=== PATIENT | male | born 1975 | race Caucasian/White ===

== ENCOUNTER 2017-11-30 07:22 | Emergency (ER) | payer BC, OTHER ==
[2017-11-30] MEDS ORDERED: SODIUM CHLORIDE 0.9% 1,000 ML IV STA (07:35)
[2017-11-30] MEDS ORDERED: ONDANSETRON 4 MG/2 ML VIAL IVP STA (07:35)
[2017-11-30] MEDS ORDERED: MECLIZINE 12.5 MG TAB PO STA (07:35)
--- NOTE | 2017-11-30 07:41 | ED ---
General Adult HPI - General Chief complaint: Dizziness Stated complaint: Dizziness Time Seen by Provider: 11/30/17 07:28 Source: patient, RN notes reviewed Mode of arrival: ambulatory Limitations: no limitations - History of Present Illness Initial comments: Patient's a 42-year-old male significant past medical history for hypertension, presenting to the emergency room today with a multiple complaints. Patient mitts a history of a chronic back problem. He states that when his back seems to bother me gets episodes of dizziness. He states he has tried to stretch out his back which helped some numbness dizziness. He states he felt dizzy or this morning. He describes as the room spinning. Patient admits that he's felt headaches. He states he's had "fogginess" in his head. He states he's had memory problems. Patient also admits to episodes of nausea vomiting and diarrhea. Patient states that episodes of dizziness come and go. He states memory problems recent. He states he's worried because there is family history of cancer. Patient mitts dizziness is worse with certain movements on from laying to sitting position. Patient denies any other complaints currently. Patient denies any recent fever, chills, shortness of breath, chest pain, abdominal pain, numbness or tingling, dysuria or hematuria, constipation, visual changes, or any other complaints. - Related Data Home Medications Medication Instructions Recorded Confirmed Ibuprofen [Motrin Ib] 600 mg PO Q6H PRN 11/30/17 11/30/17 amLODIPine [Norvasc] 5 mg PO DAILY 11/30/17 11/30/17 Previous Rx's Medication Instructions Recorded Meclizine [Antivert] 25 mg PO DAILY 10 Days tab 11/30/17 Allergies Allergy/AdvReac Type Severity Reaction Status Date / Time No Known Allergies Allergy Verified 11/30/17 08:24 Review of Systems ROS Statement: Those systems with pertinent positive or pertinent negative responses have been documented in the HPI. ROS Other: All systems not noted in ROS Statement are negative. Past Medical History Past Medical History: Hypertension Additional Past Medical History / Comment(s): chronic back pain History of Any Multi-Drug Resistant Organisms: None Reported Past Surgical History: Adenoidectomy Past Psychological History: No Psychological Hx Reported Smoking Status: Current every day smoker Past Alcohol Use History: None Reported Past Drug Use History: None Reported General Exam - General Exam Comments Initial Comments: General: The patient is awake and alert, in no distress, and does not appear acutely ill. Eye: Pupils are equal, round and reactive to light, extra-ocular movements are intact. No nystagmus. There is normal conjunctiva bilaterally. No signs of icterus. Ears, nose, mouth and throat: There are moist mucous membranes and no oral lesions. Neck: The neck is supple, there is no tenderness or JVD. Cardiovascular: There is a regular rate and rhythm. No murmur, rub or gallop is appreciated. Respiratory: Lungs are clear to auscultation, respirations are non-labored, breath sounds are equal. No wheezes, stridor, rales, or rhonchi. Gastrointestinal: Soft, non-distended, non-tender abdomen without masses or organomegaly noted. There is no rebound or guarding present. No CVA tenderness. Musculoskeletal: Normal ROM, no tenderness. Strength 5/5. Sensation intact. Pulses equal bilaterally 2+. Neurological: A&O x 3. CN II-XII intact, There are no obvious motor or sensory deficits. Coordination appears grossly intact. Speech is normal. Skin: Skin is warm and dry and no rashes or lesions are noted. Psychiatric: Cooperative, appropriate mood & affect, normal judgment. Limitations: no limitations Course Vital Signs 11/30/17 11/30/17 07:24 08:26 Temperature 98.2 F Pulse Rate 93 82 Respiratory 20 18 Rate Blood Pressure 154/97 141/79 O2 Sat by Pulse 100 97 Oximetry EKG Findings - EKG Comments: EKG Findings:: EKG performed at 0750: MO interval 152. QRS 94. QT/QTc 366/ 435. No acute ST changes. Medical Decision Making - Medical Decision Making Patient's CT of the head is negative for any acute abnormality. Chest x-rays negative. Patient's labs been reviewed are unremarkable. EKG shows normal sinus rhythm. Patient is feeling better after meclizine given here in the emergency room. He admits to some memory loss issues. He is advised follow-up family doctor for this. His dizziness is consistent with a benign positional vertigo. Patient continued on meclizine at this time. He is advised follow-up over the next 2 days return here to the emergency room if any symptoms increase or worsen. - Lab Data Result diagrams: 11/30/17 07:45 11/30/17 07:45 Lab Results 11/30/17 11/30/17 11/30/17 Range/Units 07:45 07:45 07:45 WBC 8.6 (3.8-10.6) k/uL RBC 5.26 (4.30-5.90) m/uL Hgb 15.8 (13.0-17.5) gm/dL Hct 48.2 (39.0-53.0) % MCV 91.7 (80.0-100.0) fL MCH 29.9 (25.0-35.0) pg MCHC 32.7 (31.0-37.0) g/dL RDW 12.6 (11.5-15.5) % Plt Count 300 (150-450) k/uL Neutrophils % 73 % Lymphocytes % 18 % Monocytes % 6 % Eosinophils % 2 % Basophils % 0 % Neutrophils # 6.3 (1.3-7.7) k/uL Lymphocytes # 1.5 (1.0-4.8) k/uL Monocytes # 0.5 (0-1.0) k/uL Eosinophils # 0.2 (0-0.7) k/uL Basophils # 0.0 (0-0.2) k/uL Sodium 142 (137-145) mmol/L Potassium 3.9 (3.5-5.1) mmol/L Chloride 109 H (98-107) mmol/L Carbon Dioxide 26 (22-30) mmol/L Anion Gap 7 mmol/L BUN 15 (9-20) mg/dL Creatinine 0.84 (0.66-1.25) mg/dL Est GFR (CKD-EPI)AfAm >90 (>60 ml/min/1.73 sqM) Est GFR (CKD-EPI)NonAf >90 (>60 ml/min/1.73 sqM) Glucose 114 H (74-99) mg/dL Calcium 9.6 (8.4-10.2) mg/dL Total Bilirubin 0.4 (0.2-1.3) mg/dL AST 13 L (17-59) U/L ALT 27 (21-72) U/L Alkaline Phosphatase 70 (38-126) U/L Total Creatine Kinase 79 (55-170) U/L CK-MB (CK-2) 0.7 (0.0-2.4) ng/mL CK-MB (CK-2) Rel Index 0.9 Troponin I <0.012 (0.000-0.034) ng/mL Total Protein 7.1 (6.3-8.2) g/dL Albumin 4.1 (3.5-5.0) g/dL Urine Color Urine Appearance (Clear) Urine pH (5.0-8.0) Ur Specific [place] (1.001-1.035) Urine Protein (Negative) Urine Glucose (UA) (Negative) Urine Ketones (Negative) Urine Blood (Negative) Urine Nitrite (Negative) Urine Bilirubin (Negative) Urine Urobilinogen (<2.0) mg/dL Ur Leukocyte Esterase (Negative) 11/30/17 Range/Units 08:30 WBC (3.8-10.6) k/uL RBC (4.30-5.90) m/uL Hgb (13.0-17.5) gm/dL Hct (39.0-53.0) % MCV (80.0-100.0) fL MCH (25.0-35.0) pg MCHC (31.0-37.0) g/dL RDW (11.5-15.5) % Plt Count (150-450) k/uL Neutrophils % % Lymphocytes % % Monocytes % % Eosinophils % % Basophils % % Neutrophils # (1.3-7.7) k/uL Lymphocytes # (1.0-4.8) k/uL Monocytes # (0-1.0) k/uL Eosinophils # (0-0.7) k/uL Basophils # (0-0.2) k/uL Sodium (137-145) mmol/L Potassium (3.5-5.1) mmol/L Chloride (98-107) mmol/L Carbon Dioxide (22-30) mmol/L Anion Gap mmol/L BUN (9-20) mg/dL Creatinine (0.66-1.25) mg/dL Est GFR (CKD-EPI)AfAm (>60 ml/min/1.73 sqM) Est GFR (CKD-EPI)NonAf (>60 ml/min/1.73 sqM) Glucose (74-99) mg/dL Calcium (8.4-10.2) mg/dL Total Bilirubin (0.2-1.3) mg/dL AST (17-59) U/L ALT (21-72) U/L Alkaline Phosphatase (38-126) U/L Total Creatine Kinase (55-170) U/L CK-MB (CK-2) (0.0-2.4) ng/mL CK-MB (CK-2) Rel Index Troponin I (0.000-0.034) ng/mL Total Protein (6.3-8.2) g/dL Albumin (3.5-5.0) g/dL Urine Color Yellow Urine Appearance Clear (Clear) Urine pH 5.5 (5.0-8.0) Ur Specific [place] 1.018 (1.001-1.035) Urine Protein Trace H (Negative) Urine Glucose (UA) Negative (Negative) Urine Ketones Negative (Negative) Urine Blood Negative (Negative) Urine Nitrite Negative (Negative) Urine Bilirubin Negative (Negative) Urine Urobilinogen <2.0 (<2.0) mg/dL Ur Leukocyte Esterase Negative (Negative) Disposition Clinical Impression: Chronic back pain, Vertigo Disposition: HOME SELF-CARE Condition: Good Instructions: Vertigo (ED) Additional Instructions: Please use medication as discussed. Please follow-up with family doctor in the next 2 days. Please return to emergency room if the symptoms increase or worsen or for any other concerns. Prescriptions: Meclizine [Antivert] 25 mg PO DAILY 10 Days tab Is patient prescribed a controlled substance at d/c from ED?: No Referrals: None,Stated [Primary Care Provider] - 1-2 days Time of Disposition: 09:15
[2017-11-30 08:07] LABS: Basophils % (A) 0 %; Eosinophils # (A) 0.2 k/uL (0-0.7); Eosinophils % (A) 2 %; HCT 48.2 % (39.0-53.0); HGB 15.8 gm/dL (13.0-17.5); Lymphocytes # (A) 1.5 k/uL (1.0-4.8); Lymphocytes % (A) 18 %; MCH 29.9 pg (25.0-35.0); MCHC 32.7 g/dL (31.0-37.0); MCV 91.7 fL (80.0-100.0); Mean Platelet Volume 7.9; Monocytes # (A) 0.5 k/uL (0-1.0); Monocytes % (A) 6 %; Neutrophils # (A) 6.3 k/uL (1.3-7.7); Neutrophils % (A) 73 %; Platelet Count 300 k/uL (150-450); RBC 5.26 m/uL (4.30-5.90); RDW 12.6 % (11.5-15.5); WBC 8.6 k/uL (3.8-10.6)
[2017-11-30 08:14] LABS: ALT 27 U/L (21-72); AST 13 U/L (17-59); Albumin 4.1 g/dL (3.5-5.0); Alkaline Phosphatase 70 U/L (38-126); Anion Gap 7 mmol/L; Blood Urea Nitrogen 15 mg/dL (9-20); Calcium 9.6 mg/dL (8.4-10.2); Carbon Dioxide 26 mmol/L (22-30); Chloride 109 mmol/L (98-107); Glucose 114 mg/dL (74-99); Potassium 3.9 mmol/L (3.5-5.1); Sodium 142 mmol/L (137-145); Total Bilirubin 0.4 mg/dL (0.2-1.3); Total Protein 7.1 g/dL (6.3-8.2)
--- NOTE | 2017-11-30 08:21 | CT ---
EXAMINATION TYPE: CT brain wo con DATE OF EXAM: 11/30/2017 COMPARISON: None INDICATION: patient feeling dizzy DLP: 1024.5 mGycm, Automated exposure control for dose reduction was used. CONTRAST: None CT of the brain is performed utilizing 3 mm thick sections through the posterior fossa and 3 mm thick sections through the remaining calvarium. Study is performed within 24 hours of arrival to the hosp [facility]. No abnormal hyperdensity is present to suggest an acute intracranial hemorrhage. No mass lesion is evident. No acute infarcts are evident. Ventricles and sulci are appropriate for the patient age. Paranasal sinuses and mastoid air cells within the [id number] are clear. IMPRESSIONS: 1. Normal CT Brain
[2017-11-30 08:24] LABS: Creatine Kinase 79 U/L (55-170)
--- NOTE | 2017-11-30 08:24 | XR ---
EXAMINATION TYPE: XR chest 2V DATE OF EXAM: 11/30/2017 COMPARISON: 03/10/2012 INDICATION: Cough lightheaded TECHNIQUE: Frontal and lateral views of the chest are obtained. FINDINGS: The heart size is normal. The pulmonary vasculature is normal. The lungs are clear. IMPRESSION: 1. No acute pulmonary process.
[2017-11-30 08:27] VITALS: RESP 18
[2017-11-30 08:36] LABS: Creatine Kinase MB 0.7 ng/mL (0.0-2.4); Troponin I <0.012 ng/mL (0.000-0.034)
[2017-11-30 08:38] LABS: Appearance,Urine Clear (Clear); Bilirubin,Urine Negative (Negative); Blood,Urine Negative (Negative); Color,Urine Yellow; Glucose,Urine (UA) Negative (Negative); Ketones,Urine Negative (Negative); Leukocyte Esterase,Urine Negative (Negative); Nitrite,Urine Negative (Negative); PH, Urine 5.5 (5.0-8.0); Protein,Urine Trace (Negative); Specific Gravity,Urine 1.018 (1.001-1.035); Urobilinogen,Urine <2.0 mg/dL (<2.0)
[2017-11-30 09:25] VITALS: BP 139/82; PULSE 78; TEMP 97.4
== END 2017-11-30 09:24 | disposition home or self-care (01) ==
LOC: EC 07:22
DX: R42 Dizziness and giddiness (principal); M54.9 Dorsalgia, unspecified; G89.29 Other chronic pain; I10 Essential (primary) hypertension; F17.200 Nicotine dependence, unspecified, uncomplicated; Z79.899 Other long term (current) drug therapy
CPT/HCPCS: 36415; 93005; 80053; 82550; 82553; 84484; 85025; 81003; 71046; 70450; 99284; J2405

== ENCOUNTER 2018-11-02 19:00 | Emergency (ER) | payer OTHER ==
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
[2018-11-02] MEDS ORDERED: ACET/COD 300 MG/30 MG STARTER PACK 6 TAB BTL PO STA (21:23)
[2018-11-02] MEDS ORDERED: CYCLOBENZAPRINE 10MG STARTER 3 TAB BTL PO STA (21:23)
[2018-11-02 21:55] VITALS: BP 142/74; PULSE 67; RESP 18; TEMP 97.9
== END 2018-11-02 21:55 | disposition home or self-care (01) ==
LOC: EC 19:00
DX: S16.1XXA Strain of muscle, fascia and tendon at neck level, initial encounter (principal); S80.01XA Contusion of right knee, initial encounter; S40.011A Contusion of right shoulder, initial encounter; S80.211A Abrasion, right knee, initial encounter; S50.811A Abrasion of right forearm, initial encounter; S80.812A Abrasion, left lower leg, initial encounter; F17.200 Nicotine dependence, unspecified, uncomplicated; I10 Essential (primary) hypertension; Z79.899 Other long term (current) drug therapy; V29.9XXA Motorcycle rider (driver) (passenger) injured in unspecified traffic accident, initial encounter; Y92.410 Unspecified street and highway as the place of occurrence of the external cause
CPT/HCPCS: 71046; 72072; 72125; 99284

== ENCOUNTER 2019-01-28 08:24 | Inpatient (IN) | payer OTHER ==
[2019-01-28] MEDS ORDERED: KETOROLAC 30 MG/ML 1 ML VIAL IVP STA (08:43)
[2019-01-28] MEDS ORDERED: SODIUM CHLORIDE 0.9% 1,000 ML IV STA (08:43)
[2019-01-28 09:27] LABS: Appearance,Urine Clear (Clear); Basophils # (A) 0.1 k/uL (0-0.2); Basophils % (A) 1 %; Bilirubin,Urine Negative (Negative); Blood,Urine Negative (Negative); Color,Urine Yellow; Eosinophils # (A) 0.1 k/uL (0-0.7); Eosinophils % (A) 1 %; Glucose,Urine (UA) Negative (Negative); HCT 44.1 % (39.0-53.0); HGB 14.6 gm/dL (13.0-17.5); Ketones,Urine Trace (Negative); Leukocyte Esterase,Urine Negative (Negative); Lymphocytes # (A) 1.2 k/uL (1.0-4.8); Lymphocytes % (A) 8 %; MCH 29.9 pg (25.0-35.0); MCV 90.4 fL (80.0-100.0); Mean Platelet Volume 7.1; Monocytes # (A) 0.7 k/uL (0-1.0); Monocytes % (A) 5 %; Neutrophils # (A) 12.4 k/uL (1.3-7.7); Neutrophils % (A) 84 %; Nitrite,Urine Negative (Negative); Platelet Count 287 k/uL (150-450); Protein,Urine Negative (Negative); RBC 4.87 m/uL (4.30-5.90); RDW 12.7 % (11.5-15.5); Specific Gravity,Urine 1.014 (1.001-1.035); Urobilinogen,Urine <2.0 mg/dL (<2.0); WBC 14.7 k/uL (3.8-10.6)
[2019-01-28 09:36] LABS: ALT 30 U/L (21-72); AST 16 U/L (17-59); African American GFR (CKD) >90 (>60 ml/min/1.73 sqM); Alkaline Phosphatase 82 U/L (38-126); Amylase <30 U/L (30-110); Anion Gap 9 mmol/L; Blood Urea Nitrogen 12 mg/dL (9-20); Carbon Dioxide 23 mmol/L (22-30); Chloride 106 mmol/L (98-107); Glucose 98 mg/dL (74-99); Potassium 4.3 mmol/L (3.5-5.1); Sodium 138 mmol/L (137-145); Total Bilirubin 1.2 mg/dL (0.2-1.3); Total Protein 7.1 g/dL (6.3-8.2)
--- NOTE | 2019-01-28 09:41 | CT ---
EXAMINATION TYPE: CT abdomen pelvis w con DATE OF EXAM: 01/28/2019 REFERENCE: NONE HISTORY: abdominal pain rlq HISTORY: RLQ pain CT DLP: 1302.7 mGy Automated exposure control for dose reduction was used. TECHNIQUE: Helical acquisition through the abdomen and pelvis was obtained following the oral ingesti on of without Oral Contrast and following intravenous administration of 100 mL of Isovue 300. The halima a was reformatted in axial, coronal and sagittal projections. FINDINGS: Visualized portions of the lungs are clear. There is no pleural or pericardial fluid. The heart is not enlarged. Within the abdomen, there are several low attenuating lesions throughout all of the liver. These are likely cysts but some are too small to characterize. There are gallstones within the gallbladder. Spl een is unremarkable. Both adrenal glands are normal. The pancreas is unremarkable. There is an 8 mm cyst in the upper pole of the left kidney. There is a second 1 mm simple appearing c yst in the mid polar region of the left kidney. The kidneys are otherwise unremarkable There is no significant retroperitoneal, iliac or inguinal adenopathy. The bladder wall is somewhat thickened but the bladder is not distended. There is no significant diverticular change and there is no radiographic evidence of diverticulitis. There is mucosal thickening involving the cecum and ascending colon. The appendix is normal. Small bowel loops are normal in caliber. There is no free fluid and no free air. There is degenerative disc disease at L5-S1. There is mild hypertrophic spondylosis in the lower dors al spine. IMPRESSION: 1. MUCOSAL THICKENING INVOLVING THE CECUM AND ASCENDING COLON. TYPHLITIS IS NOT EXCLUDED. 2. NORMAL APPENDIX. 3. SIMPLE APPEARING CYSTS, LEFT KIDNEY. 4. CHOLELITHIASIS.
[2019-01-28] MEDS ORDERED: PIPERACILLIN-TAZOBACTAM 3.375 GM in SODIUM CHLORIDE 0.9% 100 ML IVPB STA (09:58)
--- NOTE | 2019-01-28 09:59 | ED ---
Abdominal Pain HPI - General Chief Complaint: Abdominal Pain Stated Complaint: Abd/Back Pain Time Seen by Provider: 01/28/19 08:34 Source: patient, RN notes reviewed Mode of arrival: ambulatory Limitations: no limitations - History of Present Illness Initial Comments: 43-year-old male presents emergency Department with chief complaint of right- sided abdominal pain. Patient had progressive symptoms last 3-4 days. Patient states that last night was unbearable. He has had some loose stools. Patient reports subjective fevers and chills. Denies any chest pain or shortness breath. He does admit that he's had prior kidney stones does not feel consi stent with kidney stones. Denies any dysuria, hematuria. Increasing dark urine. Patient states nothing makes the pain feel better or worse at this time. He does feel bloated, gassy. - Related Data Home Medications Medication Instructions Recorded Confirmed Ibuprofen [Motrin Ib] 600 mg PO Q6H PRN 11/30/17 11/30/17 amLODIPine [Norvasc] 5 mg PO DAILY 11/30/17 11/30/17 Previous Rx's Medication Instructions Recorded Meclizine [Antivert] 25 mg PO DAILY 10 Days tab 11/30/17 Cyclobenzaprine [Flexeril] 10 mg PO TID PRN 7 Days #21 tab 11/02/18 Ibuprofen 800 mg PO Q8H PRN 7 Days #21 tablet 11/02/18 Allergies Allergy/AdvReac Type Severity Reaction Status Date / Time No Known Allergies Allergy Verified 01/28/19 08:30 Review of Systems ROS Statement: Those systems with pertinent positive or pertinent negative responses have been documented in the HPI. ROS Other: All systems not noted in ROS Statement are negative. Past Medical History Past Medical History: Hypertension Additional Past Medical History / Comment(s): chronic back pain History of Any Multi-Drug Resistant Organisms: None Reported Past Surgical History: Adenoidectomy Past Psychological History: No Psychological Hx Reported Smoking Status: Current every day smoker Past Alcohol Use History: None Reported Past Drug Use History: None Reported General Exam Limitations: no limitations General appearance: alert, in no apparent distress Head exam: Present: atraumatic, normocephalic, normal inspection Neck exam: Present: normal inspection, full ROM. Absent: tenderness, meningismus, lymphadenopathy Respiratory exam: Present: normal lung sounds bilaterally. Absent: respiratory distress, wheezes, rales, rhonchi, stridor Cardiovascular Exam: Present: regular rate, normal rhythm, normal heart sounds. Absent: systolic murmur, diastolic murmur, rubs, gallop, clicks GI/Abdominal exam: Present: soft, tenderness (Moderate to severe right-sided abdominal tenderness), normal bowel sounds. Absent: distended, guarding, rebound, rigid Back exam: Absent: CVA tenderness (R), CVA tenderness (L) Neurological exam: Present: alert, oriented X3 Skin exam: Present: warm, dry, intact, normal color. Absent: rash Course Vital Signs 01/28/19 08:26 Temperature 97.7 F Pulse Rate 102 H Respiratory 18 Rate Blood Pressure 154/85 O2 Sat by Pulse 97 Oximetry Medical Decision Making - Medical Decision Making CT shows evidence of cecum region. There is significant swelling, mild leukocytosis any subjective fevers. Patient we treated for infectious colitis p atient with consult to surgery patient admitted to Dr. Barfield. On-call medicine - Lab Data Result diagrams: 01/28/19 09:05 01/28/19 09:05 Lab Results 01/28/19 01/28/19 01/28/19 Range/Units 09:05 09:05 09:05 WBC 14.7 H (3.8-10.6) k/uL RBC 4.87 (4.30-5.90) m/uL Hgb 14.6 (13.0-17.5) gm/dL Hct 44.1 (39.0-53.0) % MCV 90.4 (80.0-100.0) fL MCH 29.9 (25.0-35.0) pg MCHC 33.0 (31.0-37.0) g/dL RDW 12.7 (11.5-15.5) % Plt Count 287 (150-450) k/uL Neutrophils % 84 % Lymphocytes % 8 % Monocytes % 5 % Eosinophils % 1 % Basophils % 1 % Neutrophils # 12.4 H (1.3-7.7) k/uL Lymphocytes # 1.2 (1.0-4.8) k/uL Monocytes # 0.7 (0-1.0) k/uL Eosinophils # 0.1 (0-0.7) k/uL Basophils # 0.1 (0-0.2) k/uL Sodium 138 (137-145) mmol/L Potassium 4.3 (3.5-5.1) mmol/L Chloride 106 (98-107) mmol/L Carbon Dioxide 23 (22-30) mmol/L Anion Gap 9 mmol/L BUN 12 (9-20) mg/dL Creatinine 0.79 (0.66-1.25) mg/dL Est GFR (CKD-EPI)AfAm >90 (>60 ml/min/1.73 sqM) Est GFR (CKD-EPI)NonAf >90 (>60 ml/min/1.73 sqM) Glucose 98 (74-99) mg/dL Plasma Lactic Acid Sheldon 0.9 (0.7-2.0) mmol/L Calcium 9.0 (8.4-10.2) mg/dL Total Bilirubin 1.2 (0.2-1.3) mg/dL AST 16 L (17-59) U/L ALT 30 (21-72) U/L Alkaline Phosphatase 82 (38-126) U/L Total Protein 7.1 (6.3-8.2) g/dL Albumin 4.0 (3.5-5.0) g/dL Amylase <30 L (30-110) U/L Lipase 27 (23-300) U/L Urine Color Urine Appearance (Clear) Urine pH (5.0-8.0) Ur Specific Sumner (1.001-1.035) Urine Protein (Negative) Urine Glucose (UA) (Negative) Urine Ketones (Negative) Urine Blood (Negative) Urine Nitrite (Negative) Urine Bilirubin (Negative) Urine Urobilinogen (<2.0) mg/dL Ur Leukocyte Esterase (Negative) 01/28/19 Range/Units 09:05 WBC (3.8-10.6) k/uL RBC (4.30-5.90) m/uL Hgb (13.0-17.5) gm/dL Hct (39.0-53.0) % MCV (80.0-100.0) fL MCH (25.0-35.0) pg MCHC (31.0-37.0) g/dL RDW (11.5-15.5) % Plt Count (150-450) k/uL Neutrophils % % Lymphocytes % % Monocytes % % Eosinophils % % Basophils % % Neutrophils # (1.3-7.7) k/uL Lymphocytes # (1.0-4.8) k/uL Monocytes # (0-1.0) k/uL Eosinophils # (0-0.7) k/uL Basophils # (0-0.2) k/uL Sodium (137-145) mmol/L Potassium (3.5-5.1) mmol/L Chloride (98-107) mmol/L Carbon Dioxide (22-30) mmol/L Anion Gap mmol/L BUN (9-20) mg/dL Creatinine (0.66-1.25) mg/dL Est GFR (CKD-EPI)AfAm (>60 ml/min/1.73 sqM) Est GFR (CKD-EPI)NonAf (>60 ml/min/1.73 sqM) Glucose (74-99) mg/dL Plasma Lactic Acid Sheldon (0.7-2.0) mmol/L Calcium (8.4-10.2) mg/dL Total Bilirubin (0.2-1.3) mg/dL AST (17-59) U/L ALT (21-72) U/L Alkaline Phosphatase (38-126) U/L Total Protein (6.3-8.2) g/dL Albumin (3.5-5.0) g/dL Amylase (30-110) U/L Lipase (23-300) U/L Urine Color Yellow Urine Appearance Clear (Clear) Urine pH 6.0 (5.0-8.0) Ur Specific Sumner 1.014 (1.001-1.035) Urine Protein Negative (Negative) Urine Glucose (UA) Negative (Negative) Urine Ketones Trace H (Negative) Urine Blood Negative (Negative) Urine Nitrite Negative (Negative) Urine Bilirubin Negative (Negative) Urine Urobilinogen <2.0 (<2.0) mg/dL Ur Leukocyte Esterase Negative (Negative) Disposition Clinical Impression: Colitis, Abdominal pain Disposition: ADMITTED IP TO THIS HOSP Condition: Fair Referrals: None,Stated [Primary Care Provider] - 1-2 days
[2019-01-28] MEDS ORDERED: HYDROmorphone 1 MG/ML 1 ML SYRINGE IVP PRN (10:00)
[2019-01-28] MEDS ORDERED: ONDANSETRON 4 MG/2 ML VIAL IVP PRN (10:00)
[2019-01-28] MEDS ORDERED: NALOXONE 0.4 MG/ML 1 ML VIAL IV PRN (10:00)
[2019-01-28] MEDS ORDERED: HYDROcodone/APAP 5-325MG 1 EACH TAB PO PRN (10:00)
[2019-01-28] MEDS: SODIUM CHLORIDE 0.9% 1,000 ML IV SCH ×2 (10:26→23:01)
[2019-01-28 12:06] VITALS: BMI 32.2
[2019-01-28] MEDS: HYDROmorphone 0.5 MG/0.5 ML SYRINGE IVP PRN ×2 (14:38→18:05)
[2019-01-28] MEDS: metroNIDAZOLE-NS PMX 500 MG in SALINE 1 100ML.BAG IVPB SCH ×2 (16:32→23:00)
--- NOTE | 2019-01-28 19:46 | HP ---
HISTORY AND PHYSICAL CHIEF COMPLAINT: Four or five day history of right lower quadrant pain. HISTORY OF PRESENT ILLNESS: This is the first known admission for this 43-year-old white male. Last Wednesday he started to notice some discomfort in the right lower quadrant. It grew steadily worse over the week. He had had some kidney stone issues in the past and thought that might be what it was. However, the pain became more severe and his abdomen became slightly distended and "hard." He also had chills, but no vomiting or diarrhea. He has not noticed any change in bowel habits of late. He came to emergency room where a CT suggested an abnormality in the wall of the cecum. He also has cholelithiasis which he did not know. Laboratory studies revealed a white count of 14,700. The remainder of the labs were unremarkable including liver function studies. His urine was negative, there was no blood. REVIEW OF SYSTEMS: He has had no headaches, neurologic problems, difficulty with vision or hearing, chest pain, shortness of breath, cough, hemoptysis, heart disease, murmurs, rheumatic fever, chest pain, orthopnea, PND, etc. He does have hypertension. He has had no ulcer disease, food intolerance, hematemesis, melena, hematochezia, colitis, diverticulosis, diverticulitis, hemorrhoids, jaundice, hepatitis, cirrhosis, hematuria, frequency, urgency, renal failure, diabetes, etc. Past medical history, family history and personal and social histories are all otherwise unremarkable and noncontributory. ALLERGIES: He is not allergic to any medication. He is on ibuprofen at home and nothing else. PHYSICAL EXAM: Temp is 97.7, pulse is 102, respirations 18, blood pressure is 154/85. In general, he appears to be well developed, well nourished, no acute distress. Skin color is normal. Skin is warm, dry. He had multiple tattoos. Head, ears, eyes, nose, mouth, and throat were normal. Neck veins not distended. Chest is clear to auscultation. Cardiac exam is normal. The abdomen is slightly protuberant, soft, and he was quite tender in the right lower quadrant as well as in the right upper. Extremities are normal. Neurologically he is intact. He was admitted to the hospital with the diagnoses of: 1. Inflammation in the cecum, etiology unknown. 2. Cholelithiasis. 3. History of renal calculi. 4. Family history of Crohn's disease. PLAN: 1. Bed rest. 2. IV fluids. 3. Clear liquids. 4. Consult with General Surgery and Gastroenterology. 5. Antiemetics. NIKO / SHERLYN: [id number] /
[2019-01-28] MEDS: NICOTINE 14MG/24HR PATCH TRANSDERM SCH (19:54)
[2019-01-29 07:12] LABS: Basophils % (A) 0 %; Eosinophils # (A) 0.1 k/uL (0-0.7); Eosinophils % (A) 1 %; HCT 39.8 % (39.0-53.0); HGB 13.1 gm/dL (13.0-17.5); Lymphocytes # (A) 1.3 k/uL (1.0-4.8); Lymphocytes % (A) 14 %; MCH 30.2 pg (25.0-35.0); MCHC 32.9 g/dL (31.0-37.0); MCV 91.9 fL (80.0-100.0); Mean Platelet Volume 6.7; Monocytes # (A) 0.5 k/uL (0-1.0); Monocytes % (A) 5 %; Neutrophils % (A) 77 %; Platelet Count 277 k/uL (150-450); RBC 4.32 m/uL (4.30-5.90); RDW 12.6 % (11.5-15.5); WBC 9.1 k/uL (3.8-10.6)
[2019-01-29 07:30] LABS: ALT 26 U/L (21-72); AST 15 U/L (17-59); African American GFR (CKD) >90 (>60 ml/min/1.73 sqM); Albumin 3.3 g/dL (3.5-5.0); Alkaline Phosphatase 72 U/L (38-126); Anion Gap 6 mmol/L; Blood Urea Nitrogen 11 mg/dL (9-20); Calcium 8.4 mg/dL (8.4-10.2); Carbon Dioxide 26 mmol/L (22-30); Chloride 105 mmol/L (98-107); Glucose 84 mg/dL (74-99); Potassium 4.2 mmol/L (3.5-5.1); Sodium 137 mmol/L (137-145); Total Bilirubin 1.2 mg/dL (0.2-1.3); Total Protein 6.2 g/dL (6.3-8.2)
[2019-01-29] MEDS: PANTOPRAZOLE 40 MG/10 ML VIAL IV SCH (08:07)
[2019-01-29] MEDS: NICOTINE 14MG/24HR PATCH TRANSDERM SCH (08:07)
[2019-01-29] MEDS: metroNIDAZOLE-NS PMX 500 MG in SALINE 1 100ML.BAG IVPB SCH ×3 (08:08→23:00)
--- NOTE | 2019-01-29 09:51 | P.GSCN ---
History of Present Illness Consult date: 01/29/19 Reason for Consult: Abdominal pain History of present illness: 43-year-old male started having abdominal pain yesterday. He states he was havi ng some increased lower back pain the day before and sometimes with his chronic back issues that is the first sign of abdominal discomfort. Denies fevers. Appetite diminished. Pain was fairly severe in the right lower quadrant. Much better this morning. He is ambulating. No history of similar events. No recent travel. No sick contacts. Patient denies diarrhea. In fact complaints more of constipation lately. No rectal bleeding or melena. Family history of Crohn's disease and a distant cousin. He is hungry at this time. CAT scan reviewed. CAT scan shows inflammatory changes of the cecum and proximal ascending colon consistent with colitis/typhlitis. No volvulus seen. Patient d oes state he had a tooth that started hurting within the last few days after part of the tooth broke away. Review of Systems The patient denies any acute changes in vision or hearing, no dysphagia or odynophagia, no chest pain or shortness of breath, no dysuria or hematuria, no headache, no runny nose, no rectal bleeding or melena, no unexplained weight loss Past Medical History Past Medical History: Hypertension Additional Past Medical History / Comment(s): chronic back pain History of Any Multi-Drug Resistant Organisms: None Reported Past Surgical History: Adenoidectomy Past Psychological History: No Psychological Hx Reported Smoking Status: Current every day smoker Past Alcohol Use History: None Reported Past Drug Use History: None Reported - Past Family History Father Family Medical History: Diabetes Mellitus Additional Family Medical History / Comment(s): First cousin has been diagnosed with Chrons, Great Uncle had colon cancer. Mother Family Medical History: Thyroid Disorder Medications and Allergies Home Medications Medication Instructions Recorded Confirmed Type Ibuprofen [Motrin Ib] 600 mg PO Q6H PRN 11/30/17 01/28/19 History Allergies Allergy/AdvReac Type Severity Reaction Status Date / Time No Known Allergies Allergy Verified 01/28/19 10:46 Surgical - Exam Vital Signs Temp Pulse Resp BP Pulse Ox 97.7 F 102 H 18 154/85 97 01/28/19 08:26 01/28/19 08:26 01/28/19 08:26 01/28/19 08:26 01/28/19 08:26 Physical exam: General: Well-developed, well-nourished HEENT: Normocephalic, sclerae nonicteric Abdomen: Mild right lower quadrant tenderness, nondistended Extremities: No edema Neuro: Alert and oriented Results - Labs 01/29/19 06:30 01/29/19 06:30 Abnormal Lab Results - Last 24 Hours (Table) 01/29/19 Range/Units 06:30 AST 15 L (17-59) U/L Total Protein 6.2 L (6.3-8.2) g/dL Albumin 3.3 L (3.5-5.0) g/dL Diabetes panel 01/29/19 Range/Units 06:30 Sodium 137 (137-145) mmol/L Potassium 4.2 (3.5-5.1) mmol/L Chloride 105 (98-107) mmol/L Carbon Dioxide 26 (22-30) mmol/L BUN 11 (9-20) mg/dL Creatinine 0.87 (0.66-1.25) mg/dL Glucose 84 (74-99) mg/dL Calcium 8.4 (8.4-10.2) mg/dL AST 15 L (17-59) U/L ALT 26 (21-72) U/L Alkaline Phosphatase 72 (38-126) U/L Total Protein 6.2 L (6.3-8.2) g/dL Albumin 3.3 L (3.5-5.0) g/dL Calcium panel 01/29/19 Range/Units 06:30 Calcium 8.4 (8.4-10.2) mg/dL Albumin 3.3 L (3.5-5.0) g/dL Pituitary panel 01/29/19 Range/Units 06:30 Sodium 137 (137-145) mmol/L Potassium 4.2 (3.5-5.1) mmol/L Chloride 105 (98-107) mmol/L Carbon Dioxide 26 (22-30) mmol/L BUN 11 (9-20) mg/dL Creatinine 0.87 (0.66-1.25) mg/dL Glucose 84 (74-99) mg/dL Calcium 8.4 (8.4-10.2) mg/dL Adrenal panel 01/29/19 Range/Units 06:30 Sodium 137 (137-145) mmol/L Potassium 4.2 (3.5-5.1) mmol/L Chloride 105 (98-107) mmol/L Carbon Dioxide 26 (22-30) mmol/L BUN 11 (9-20) mg/dL Creatinine 0.87 (0.66-1.25) mg/dL Glucose 84 (74-99) mg/dL Calcium 8.4 (8.4-10.2) mg/dL Total Bilirubin 1.2 (0.2-1.3) mg/dL AST 15 L (17-59) U/L ALT 26 (21-72) U/L Alkaline Phosphatase 72 (38-126) U/L Total Protein 6.2 L (6.3-8.2) g/dL Albumin 3.3 L (3.5-5.0) g/dL Assessment and Plan (1) Colitis Narrative/Plan: 43-year-old male with unusual presentation of right-sided colitis. Await stool studies. Continue antibiotics. Advance diet. Likely discharge tomorrow on oral antibiotics. Current Visit: Yes Status: Acute Code(s): K52.9 - NONINFECTIVE GASTROENTERITIS AND COLITIS, UNSPECIFIED SNOMED Code(s): 36101926
[2019-01-29] MEDS: KETOROLAC 30 MG/ML 1 ML VIAL IVP SCH ×3 (12:13→23:00)
[2019-01-29] MEDS: SODIUM CHLORIDE 0.9% 1,000 ML IV SCH (12:15)
--- NOTE | 2019-01-29 14:22 | PN ---
PROGRESS NOTE CHIEF COMPLAINT: Right lower quadrant pain. HISTORY OF PRESENT ILLNESS: This gentleman is doing much better. Pain is greatly improved. He has been seen by both surgery and GI and they feel he can probably go home tomorrow. His diet is advanced to full along with his activity. PHYSICAL EXAMINATION: He is much less tender in the right lower quadrant. Chest is clear. Cardiac exam is normal. IMPRESSION: 1. Right lower quadrant pain, probably due to inflammation of the cecum with source not being clear. 2. Cholelithiasis. PLAN: If he continues to do well, he will probably go home tomorrow. MMODL / IJN: [id number] /
[2019-01-29] MEDS: PIPERACILLIN-TAZOBACTAM 3.375 GM in SODIUM CHLORIDE 0.9% 100 ML IVPB SCH (17:21)
--- NOTE | 2019-01-29 22:27 | P.CONS ---
History of Present Illness - Reason for Consult Consult date: 01/29/19 - History of Present Illness 43-year-old male with a medical history significant for chronic back pain and hypertension who presented to the hospital due to complaints of abdominal pain. The patient reports abdominal pain in the right lower quadrant of his abdomen. States that the pain had been present for approximately 3-4 days prior to presentation and describes it as constant, waxing and waning in intensity and described as sharp. He also had increased gaseous distention. He denies any diarrhea or Martín blood per rectum and does report that he has been constipated over the past week. At baseline he reports normal daily bowel movements. Denied any associated nausea or vomiting. He had a computed tomography scan on presentation which showed mucosal thickening in the cecum and ascending colon as well as cholelithiasis. Laboratory evaluation was significant for WBC 9.1, hemoglobin 13.1, for the 20 77,000, amylase less than 30, lipase 27, total bilirubin 1.2, alkaline phosphatase 72, AST 15 and ALT 26. Currently the patient is seen lying in bed reporting that abdominal pain is greatly improved. He has tolerated diet. Review of Systems REVIEW OF SYSTEMS: CONSTITUTIONAL: Denies any fevers, chills, weight change or fatigue. CARDIOVASCULAR: Denies any chest pain, palpitations high or low blood pressures RESPIRATORY: Denies any shortness of breath, hemoptysis or cough. GENITOURINARY: No dysuria or hematuria. MUSCULOSKELETAL: No weakness reported. SKIN: Denies any new rashes or lesions, jaundice or pallor. PSYCHIATRIC: Denies any depression or anxiety. NEUROLOGY: Denies headache, denies any new focal deficits. EARS/NOSE/THROAT: No recent hearing change, congestion, nasal discharge or sore throat. EYES: No pain in eyes, discharge or change in vision. GASTROINTESTINAL: As per HPI. Past Medical History Past Medical History: Hypertension Additional Past Medical History / Comment(s): chronic back pain History of Any Multi-Drug Resistant Organisms: None Reported Past Surgical History: Adenoidectomy Past Psychological History: No Psychological Hx Reported Smoking Status: Current every day smoker Past Alcohol Use History: None Reported Past Drug Use History: None Reported - Past Family History Father Family Medical History: Diabetes Mellitus Additional Family Medical History / Comment(s): First cousin has been diagnosed with Chrons, Great Uncle had colon cancer. Mother Family Medical History: Thyroid Disorder Medications and Allergies Home Medications Medication Instructions Recorded Confirmed Type Ibuprofen [Motrin Ib] 600 mg PO Q6H PRN 11/30/17 01/28/19 History Allergies Allergy/AdvReac Type Severity Reaction Status Date / Time No Known Allergies Allergy Verified 01/28/19 10:46 Physical Exam Vitals: Vital Signs Temp Pulse Resp BP Pulse Ox 01/29/19 07:00 98.2 F 81 18 152/86 96 01/29/19 01:19 EDT 98 F 89 16 114/67 94 L 01/28/19 19:42 98.3 F 89 18 130/74 99 Intake and Output 01/28/19 01/29/19 01/29/19 23:59 06:59 14:59 Intake Total 547 Balance 547 Intake: Intake, IV Titration Amount Sodium Chloride 0.9% 1, 000 ml @ 75 mls/hr IV . [id number] VINOD Rx#:[id number] Oral 547 Other: Voiding Method # Voids On physical examination, patient appears comfortable in no apparent distress. HEAD: Normocephalic, atraumatic. EYES: No scleral icterus. No conjunctival injection. MOUTH: No lesions, tongue midline. NECK: Trachea midline, no gross abnormalities. CHEST: Clear to auscultation with no wheezing or rhonchi appreciated. HEART: Regular rate and rhythm. ABDOMEN: Soft, tender to palpation right lower quadrant. Bowel sounds are positive. No organomegaly. No guarding or rigidity. EXTREMITIES: No pedal edema. SKIN: No rashes, no jaundice. NEUROLOGIC: Alert and oriented x3. No focal deficits. Results CBC & Chem 7: 01/29/19 06:30 01/29/19 06:30 Labs: Abnormal Lab Results - Last 24 Hours (Table) 01/29/19 Range/Units 06:30 AST 15 L (17-59) U/L Total Protein 6.2 L (6.3-8.2) g/dL Albumin 3.3 L (3.5-5.0) g/dL CT scan - abdomen: report reviewed (Computed tomography scan of the abdomen with findings of colitis of the cecum and ascending colon.) Assessment and Plan (1) Colitis Narrative/Plan: 43-year-old male with a medical history significant for hypertension and chronic back pain who presented with right lower quadrant abdominal pain of 3-4 days duration. No prior episodes, no sick contacts, unusual foods or travel. Patient does have a distant family relatives with Crohn's disease. Denies any change in bowel habits including diarrhea or blood per rectum but has been constipated over the past week. Unclear etiology of findings with suspicion for infection or ischemic colitis and inflammatory process. Likely given the acuity of symptoms. Patient will also need colonoscopy for further evaluation in the outpatient setting to exclude malignant process which is been explained to him at length and for which she agrees and will follow-up. Current Visit: Yes Status: Acute Code(s): K52.9 - NONINFECTIVE GASTROENTERITIS AND COLITIS, UNSPECIFIED SNOMED Code(s): 05673506 (2) Abdominal pain Current Visit: Yes Status: Acute Code(s): R10.9 - UNSPECIFIED ABDOMINAL PAIN SNOMED Code(s): 51282515 Plan: Supportive care Okay for diet as tolerated Continue antibiotic therapy Continue to monitor her symptomatically Appreciate recommendations from surgical service Patient will need colonoscopy in 4-6 weeks to evaluate findings of inflammation seen on computed tomography scan which has been discussed with the patient at length and for which she agrees Thank you for allowing us to participate in the care of the patient, if he continues to do well okay from gastroenterology standpoint for discharge
[2019-01-30] MEDS: PIPERACILLIN-TAZOBACTAM 3.375 GM in SODIUM CHLORIDE 0.9% 100 ML IVPB SCH ×2 (00:05→08:50)
[2019-01-30] MEDS: SODIUM CHLORIDE 0.9% 1,000 ML IV SCH (03:48)
[2019-01-30] MEDS: KETOROLAC 30 MG/ML 1 ML VIAL IVP SCH (05:33)
[2019-01-30] MEDS: NICOTINE 14MG/24HR PATCH TRANSDERM SCH (07:38)
[2019-01-30] MEDS: PANTOPRAZOLE 40 MG/10 ML VIAL IV SCH (07:38)
[2019-01-30] MEDS: metroNIDAZOLE-NS PMX 500 MG in SALINE 1 100ML.BAG IVPB SCH (07:39)
[2019-01-30 08:37] VITALS: BP 148/93; PULSE 88; RESP 14; TEMP 97.8
--- NOTE | 2019-01-30 10:15 | P.PN ---
<Jacqueline Perez - Last Filed: 01/30/19 10:12> Subjective Progress Note Date: 01/30/19 CHIEF COMPLAINT: Abdominal pain HISTORY OF PRESENT ILLNESS: Patient examined this morning at the bedside. He denies abdominal pain. He reports some bloating but states it is improved from yesterday. Tolerating diet without nausea or vomiting. Passing flatus. He is anxious to be discharged home today. PHYSICAL EXAM: VITAL SIGNS: Reviewed. GENERAL: Well-developed in no acute distress. HEENT: No sclera icterus. Extraocular movements grossly intact. Moist buccal mucosa. Head is atraumatic, normocephalic. ABDOMEN: Soft. Nondistended. Nontender. NEUROLOGIC: Alert and oriented. Cranial nerves II through XII grossly intact. ASSESSMENT: 1. Abdominal pain 2. Colitis PLAN: 1. Continue diet as tolerated 2. No surgical intervention recommended 3. Stable for discharge home today from a surgical standpoint on oral antibiotics. Nurse practitioner note has been reviewed by physician. Signing provider agrees with the documented findings, assessment, and plan of care. Objective - Vital Signs Vital signs: Vital Signs Temp 97.8 F 01/30/19 07:00 Pulse 88 01/30/19 07:00 Resp 14 01/30/19 07:00 BP 148/93 01/30/19 07:00 Pulse Ox 96 01/30/19 07:00 Intake & Output 01/29/19 01/30/19 01/30/19 18:59 06:59 18:59 Intake Total 547 296 Balance 547 296 Intake: Oral 547 296 Other: # Voids 3 - Labs CBC & Chem 7: 01/29/19 06:30 01/29/19 06:30 Labs: Microbiology - Last 24 Hours (Table) 01/28/19 10:13 Blood Culture - Preliminary Blood No Growth after 24 hours 01/29/19 07:00 Stool Culture - Preliminary Stool <Ishan Amaya - Last Filed: 01/30/19 13:50> Subjective As above. Patient feels well. Tolerating full liquids. No nausea or vomiting. Diarrhea has resolved. May discharged today from my standpoint. Outpatient diet of full liquids advised. Plan supplementing with protein supplementation or tube feeds through gastrostomy as bolus feeds. Objective - Vital Signs Vital signs: Vital Signs Temp 97.8 F 01/30/19 07:00 Pulse 88 01/30/19 07:00 Resp 14 01/30/19 07:00 BP 148/93 01/30/19 07:00 Pulse Ox 96 01/30/19 07:00 Intake & Output 01/29/19 01/30/19 01/30/19 18:59 06:59 18:59 Intake Total 547 296 Balance 547 296 Intake: Oral 547 296 Other: # Voids 3 - Labs CBC & Chem 7: 01/29/19 06:30 01/29/19 06:30 Labs: Microbiology - Last 24 Hours (Table) 01/28/19 10:13 Blood Culture - Preliminary Blood No Growth after 48 hours 01/29/19 07:00 Stool Culture - Preliminary Stool Assessment and Plan (1) Colitis Current Visit: Yes Status: Acute Code(s): K52.9 - NONINFECTIVE GASTROENTERITIS AND COLITIS, UNSPECIFIED SNOMED Code(s): 35351762
--- NOTE | 2019-01-30 19:48 | DS ---
DISCHARGE SUMMARY CHIEF COMPLAINT: Right lower quadrant pain. HISTORY OF PRESENT ILLNESS AND PHYSICAL EXAM: Details of this man's history and physical can be found in the initial workup. LABORATORY STUDIES: While he was in the hospital he had laboratory studies, details of which can be found in the laboratory section of his chart. COURSE IN HOSPITAL: After admission he was placed on bedrest, started on intravenous fluids and he was seen by Gastroenterology. There was a suggestion that he had cholelithiasis as well. The right lower quadrant pain began to subside. He was doing well on and Surgery and Gastroenterology felt that he could be discharged. He will go home on light activity about the house and he will be seen in the office in several days. FINAL DIAGNOSIS: 1. Cecitis. 2. Cholecystitis. OPERATIONS: None. CONSULTATIONS: Gastroenterology and surgery. He is improved. MMCOREYL / SHERLYN: [id number] /
== END 2019-01-30 14:30 | disposition home or self-care (01) | DRG 392 ==
LOC: EC 08:24 → 4SSUR 10:00
PROVIDERS: ADMIT Family Medicine; ATTEND Family Medicine
DX: K52.9 Noninfective gastroenteritis and colitis, unspecified (principal); K80.10 Calculus of gallbladder with chronic cholecystitis without obstruction; I10 Essential (primary) hypertension; M54.5 Low back pain; F17.200 Nicotine dependence, unspecified, uncomplicated; Z87.442 Personal history of urinary calculi; Z79.899 Other long term (current) drug therapy; Z90.89 Acquired absence of other organs; Z83.79 Family history of other diseases of the digestive system; Z83.3 Family history of diabetes mellitus; Z80.0 Family history of malignant neoplasm of digestive organs; Z83.49 Family history of other endocrine, nutritional and metabolic diseases
CPT/HCPCS: 36415; 74177; 80053; 81003; 82150; 83605; 83690; 85025; 87040; 87045; 87046; 87328; 87329; 96361; 96365; 96375; 99285

== ENCOUNTER 2019-02-15 01:41 | Emergency (ER) | payer OTHER ==
[2019-02-15 01:51] VITALS: RESP 18; TEMP 97.2
[2019-02-15] MEDS ORDERED: SODIUM CHLORIDE 0.9% 1,000 ML IV STA (02:02)
--- NOTE | 2019-02-15 02:08 | ED ---
Abdominal Pain HPI - General Chief Complaint: Abdominal Pain Stated Complaint: Abdominal Pain Time Seen by Provider: 02/15/19 01:55 Source: patient Mode of arrival: ambulatory Limitations: physical limitation - History of Present Illness Initial Comments: Patient is a 43-year-old male presenting to emergency Department with a chief complaint of abdominal pain. Patient reports he was admitted to the hospital for infectious colitis 2 weeks ago and was discharged after 3 days. Patient reports he was on oral antibiotics which finished 5 days ago. Patient reports since he finished the medication, his diarrhea has improved. However, patient reports last night he ate steak and developed right-sided abdominal pain that is very similar to the pain he had 2 weeks ago when he was admitted. Patient also reports abdominal bloating and feeling gassy. Patient reports no alleviating or aggravating factors. Patient denies any nausea or vomiting or diarrhea. Patient denies urinary, penile or scrotal symptoms. Patient denies any night sweats or chills. Patient denies hematuria, hematochezia or melena. - Related Data Home Medications Medication Instructions Recorded Confirmed Ibuprofen [Motrin Ib] 600 mg PO Q6H PRN 11/30/17 01/28/19 Previous Rx's Medication Instructions Recorded Ciprofloxacin HCl [Cipro] 500 mg PO Q12HR #20 tablet 01/30/19 metroNIDAZOLE [Flagyl] 500 mg PO TID #30 tab 01/30/19 Allergies Allergy/AdvReac Type Severity Reaction Status Date / Time No Known Allergies Allergy Verified 02/15/19 01:52 Review of Systems ROS Statement: Those systems with pertinent positive or pertinent negative responses have been documented in the HPI. ROS Other: All systems not noted in ROS Statement are negative. Past Medical History Past Medical History: Hypertension Additional Past Medical History / Comment(s): chronic back pain History of Any Multi-Drug Resistant Organisms: None Reported Past Surgical History: Adenoidectomy Past Psychological History: No Psychological Hx Reported Smoking Status: Current every day smoker Past Alcohol Use History: None Reported Past Drug Use History: None Reported - Past Family History Father Family Medical History: Diabetes Mellitus Additional Family Medical History / Comment(s): First cousin has been diagnosed with Chrons, Great Uncle had colon cancer. Mother Family Medical History: Thyroid Disorder General Exam Limitations: physical limitation General appearance: alert, in no apparent distress Head exam: Present: atraumatic, normocephalic, normal inspection Eye exam: Present: normal appearance, PERRL, EOMI Pupils: Present: normal accommodation ENT exam: Present: normal exam, normal oropharynx, mucous membranes moist, TM's normal bilaterally, normal external ear exam Neck exam: Present: normal inspection, full ROM Respiratory exam: Present: normal lung sounds bilaterally Cardiovascular Exam: Present: regular rate, normal rhythm, normal heart sounds GI/Abdominal exam: Present: soft, distended, tenderness (Right-sided tenderness), normal bowel sounds. Absent: diminished bowel sounds, hyperactive bowel sounds, organomegaly, mass Extremities exam: Present: normal inspection, full ROM Back exam: Present: normal inspection, full ROM, CVA tenderness (R) Neurological exam: Present: alert, oriented X3 Psychiatric exam: Present: normal affect, normal mood Skin exam: Present: warm, dry, intact, normal color Course Vital Signs 02/15/19 02/15/19 01:46 03:50 Temperature 97.2 F L Pulse Rate 95 82 Respiratory 18 18 Rate Blood Pressure 158/102 138/89 O2 Sat by Pulse 97 98 Oximetry Medical Decision Making - Medical Decision Making Patient is a 43-year-old male presenting to emergency Department with a chief complaint of abdominal pain. Patient was diagnosed with infectious colitis 2 weeks ago and was treated inpatient for 3 days and discharged on oral antibiotic . Physical examination it is indicative of a CVA tenderness along with right lower quadrant and right upper quadrant pain. Patient was given fluids, antiemetics and analgesia. On reevaluation patient reports the pain has improved although he is concerned that it might recur. Patient had abdominal CT performed 2 weeks ago, I discussed pros and cons of abdominal CT. Patient agrees to proceed. CT of abdomen and pelvis is indicative of improvement of inflammation compared to last exam. No other signs of acute pathologies. Patient will be discharged. I suspect the onset of pain to be related to the poor diet. Patient advised to go on a liquid diet. Patient also given Tylenol 3 starter pack. Patient denies about possible side effects of the medication. Patient vised to follow-up with a GI specialist. Strict return parameters were thoroughly discussed with patient was understanding and agreeable. Case discussed with physician. - Lab Data Result diagrams: 02/15/19 02:13 02/15/19 02:13 Lab Results 02/15/19 02/15/19 02/15/19 Range/Units 02:13 02:13 02:13 WBC 8.4 (3.8-10.6) k/uL RBC 4.67 (4.30-5.90) m/uL Hgb 14.3 (13.0-17.5) gm/dL Hct 42.3 (39.0-53.0) % MCV 90.4 (80.0-100.0) fL MCH 30.7 (25.0-35.0) pg MCHC 33.9 (31.0-37.0) g/dL RDW 12.9 (11.5-15.5) % Plt Count 354 (150-450) k/uL Neutrophils % 73 % Lymphocytes % 18 % Monocytes % 5 % Eosinophils % 2 % Basophils % 1 % Neutrophils # 6.1 (1.3-7.7) k/uL Lymphocytes # 1.5 (1.0-4.8) k/uL Monocytes # 0.4 (0-1.0) k/uL Eosinophils # 0.2 (0-0.7) k/uL Basophils # 0.1 (0-0.2) k/uL Sodium 139 (137-145) mmol/L Potassium 4.2 (3.5-5.1) mmol/L Chloride 107 (98-107) mmol/L Carbon Dioxide 25 (22-30) mmol/L Anion Gap 7 mmol/L BUN 15 (9-20) mg/dL Creatinine 0.79 (0.66-1.25) mg/dL Est GFR (CKD-EPI)AfAm >90 (>60 ml/min/1.73 sqM) Est GFR (CKD-EPI)NonAf >90 (>60 ml/min/1.73 sqM) Glucose 116 H (74-99) mg/dL Calcium 9.4 (8.4-10.2) mg/dL Total Bilirubin 0.6 (0.2-1.3) mg/dL AST 20 (17-59) U/L ALT 29 (21-72) U/L Alkaline Phosphatase 65 (38-126) U/L Total Protein 7.2 (6.3-8.2) g/dL Albumin 4.1 (3.5-5.0) g/dL Amylase 41 (30-110) U/L Lipase 57 (23-300) U/L Urine Color Light Yellow Urine Appearance Clear (Clear) Urine pH 6.5 (5.0-8.0) Ur Specific [place] 1.019 (1.001-1.035) Urine Protein Negative (Negative) Urine Glucose (UA) Negative (Negative) Urine Ketones Negative (Negative) Urine Blood Negative (Negative) Urine Nitrite Negative (Negative) Urine Bilirubin Negative (Negative) Urine Urobilinogen <2.0 (<2.0) mg/dL Ur Leukocyte Esterase Negative (Negative) Disposition Clinical Impression: Abdominal pain Disposition: HOME SELF-CARE Condition: Stable Instructions (If sedation given, give patient instructions): Abdominal Pain (ED) Additional Instructions: Please follow up with primary care. Please return to emergency department is symptoms worsen. Is patient prescribed a controlled substance at d/c from ED?: No Referrals: None,Stated [Primary Care Provider] - 1-2 days Time of Disposition: 04:52
[2019-02-15 02:28] LABS: Appearance,Urine Clear (Clear); Bilirubin,Urine Negative (Negative); Blood,Urine Negative (Negative); Color,Urine Light Yellow; Glucose,Urine (UA) Negative (Negative); Ketones,Urine Negative (Negative); Leukocyte Esterase,Urine Negative (Negative); Nitrite,Urine Negative (Negative); PH, Urine 6.5 (5.0-8.0); Protein,Urine Negative (Negative); Specific Gravity,Urine 1.019 (1.001-1.035); Urobilinogen,Urine <2.0 mg/dL (<2.0)
[2019-02-15 02:35] LABS: ALT 29 U/L (21-72); AST 20 U/L (17-59); African American GFR (CKD) >90 (>60 ml/min/1.73 sqM); Albumin 4.1 g/dL (3.5-5.0); Alkaline Phosphatase 65 U/L (38-126); Amylase 41 U/L (30-110); Anion Gap 7 mmol/L; Blood Urea Nitrogen 15 mg/dL (9-20); Calcium 9.4 mg/dL (8.4-10.2); Carbon Dioxide 25 mmol/L (22-30); Chloride 107 mmol/L (98-107); Glucose 116 mg/dL (74-99); Non-African American GFR(CKD) >90 (>60 ml/min/1.73 sqM); Potassium 4.2 mmol/L (3.5-5.1); Sodium 139 mmol/L (137-145); Total Bilirubin 0.6 mg/dL (0.2-1.3); Total Protein 7.2 g/dL (6.3-8.2)
[2019-02-15 02:36] LABS: Basophils # (A) 0.1 k/uL (0-0.2); Basophils % (A) 1 %; Eosinophils # (A) 0.2 k/uL (0-0.7); Eosinophils % (A) 2 %; HCT 42.3 % (39.0-53.0); HGB 14.3 gm/dL (13.0-17.5); Lymphocytes # (A) 1.5 k/uL (1.0-4.8); Lymphocytes % (A) 18 %; MCH 30.7 pg (25.0-35.0); MCHC 33.9 g/dL (31.0-37.0); MCV 90.4 fL (80.0-100.0); Monocytes # (A) 0.4 k/uL (0-1.0); Monocytes % (A) 5 %; Neutrophils # (A) 6.1 k/uL (1.3-7.7); Neutrophils % (A) 73 %; Platelet Count 354 k/uL (150-450); RBC 4.67 m/uL (4.30-5.90); RDW 12.9 % (11.5-15.5); WBC 8.4 k/uL (3.8-10.6)
[2019-02-15] MEDS ORDERED: PANTOPRAZOLE 40 MG/10 ML VIAL IVP STA (02:50)
[2019-02-15] MEDS ORDERED: DICYCLOMINE 10 MG CAP PO STA (02:50)
[2019-02-15] MEDS ORDERED: MORPHINE SULFATE 2 MG/ML SYRINGE IVP ONE (02:51)
[2019-02-15 03:56] VITALS: BP 138/89; PULSE 82
--- NOTE | 2019-02-15 04:31 | CT ---
EXAMINATION TYPE: CT abdomen pelvis w con DATE OF EXAM: 02/15/2019 COMPARISON: 02/15/2019 HISTORY: Patient presents with right sided abdominal and flank pain. CT DLP: 1342 mGycm Automated exposure control for dose reduction was used. TECHNIQUE: Helical acquisition of images was performed from the lung bases through the pelvis. CONTRAST: Performed without Oral Contrast and with IV Contrast, patient injected with 100mL mL of Isovue 300. FINDINGS: Lung bases are clear. There is no pleural effusion. Heart size is normal. There is no pericardial eff usion. There are numerous small cysts scattered in the liver that measure up to 1 cm. There are small calcif ied gallstones. Bile ducts are not dilated. Spleen appears normal. Stomach appears normal. There is n o evidence of pancreatic mass. There is 1.7 cm rounded right adrenal mass. Kidneys show satisfactory contrast opacification. There is no hydronephrosis. There is 1 cm cortical cyst lateral left kidney. There is no retroperitoneal adenopathy. Ureters are not dilated. Bladder di stends smoothly. There is no inguinal hernia. There is no free fluid in the pelvis. Appendix appears normal. There is no mesenteric edema. There is no ascites or free air. There is no sign of a bowel obstructio n. Lumbar spine is intact. The bony pelvis is intact. IMPRESSION: SMALL CALCIFIED GALLSTONES. MULTIPLE TINY CYSTS IN THE LIVER. NO SIGN OF ACUTE ABDOMEN AND PELVIS. TH ERE IS CLEARING OF THE FAT STRANDING AND INFLAMMATORY CHANGES IN THE RIGHT LOWER QUADRANT INVOLVING T HE CECUM COMPARED TO LAST EXAM. NORMAL APPENDIX. STABLE SMALL RIGHT ADRENAL MASS.
[2019-02-15] MEDS ORDERED: ACET/COD 300 MG/30 MG STARTER PACK 6 TAB BTL PO STA (04:59)
== END 2019-02-15 05:09 | disposition home or self-care (01) ==
LOC: EC 01:41
DX: R10.11 Right upper quadrant pain (principal); I10 Essential (primary) hypertension; F17.200 Nicotine dependence, unspecified, uncomplicated
CPT/HCPCS: 36415; 80053; 82150; 83690; 85025; 81003; 74177; 99284; 96374; 96375; 96361; J2270; C9113; Q9967

== ENCOUNTER 2019-02-17 13:50 | Inpatient (IN) | payer OTHER ==
[2019-02-17] MEDS ORDERED: HYDROmorphone 1 MG/ML 1 ML SYRINGE IVP STA (14:19)
[2019-02-17] MEDS ORDERED: KETOROLAC 30 MG/ML 1 ML VIAL IVP STA (14:19)
[2019-02-17] MEDS ORDERED: diphenhydrAMINE 50 MG/ML 1 ML VIAL IVP STA (14:19)
[2019-02-17] MEDS ORDERED: METOCLOPRAMIDE 5 MG/ML 2 ML VIAL IVP STA (14:19)
[2019-02-17] MEDS ORDERED: SODIUM CHLORIDE 0.9% 2,000 ML IV STA (14:19)
[2019-02-17 14:40] LABS: ALT 28 U/L (21-72); AST 20 U/L (17-59); African American GFR (CKD) >90 (>60 ml/min/1.73 sqM); Albumin 4.1 g/dL (3.5-5.0); Alkaline Phosphatase 71 U/L (38-126); Amylase 44 U/L (30-110); Anion Gap 12 mmol/L; Blood Urea Nitrogen 26 mg/dL (9-20); Calcium 9.9 mg/dL (8.4-10.2); Carbon Dioxide 28 mmol/L (22-30); Chloride 94 mmol/L (98-107); Glucose 163 mg/dL (74-99); Non-African American GFR(CKD) >90 (>60 ml/min/1.73 sqM); Potassium 4.2 mmol/L (3.5-5.1); Sodium 134 mmol/L (137-145); Total Bilirubin 1.7 mg/dL (0.2-1.3); Total Protein 7.6 g/dL (6.3-8.2)
[2019-02-17 14:49] LABS: Basophils # (A) 0.3 k/uL (0-0.2); Basophils % (A) 2 %; Eosinophils # (A) 0.1 k/uL (0-0.7); Eosinophils % (A) 1 %; HGB 15.4 gm/dL (13.0-17.5); Lymphocytes # (A) 0.8 k/uL (1.0-4.8); Lymphocytes % (A) 6 %; MCH 30.4 pg (25.0-35.0); MCHC 34.3 g/dL (31.0-37.0); MCV 88.6 fL (80.0-100.0); Mean Platelet Volume 7.2; Monocytes # (A) 1.3 k/uL (0-1.0); Monocytes % (A) 9 %; Neutrophils # (A) 10.8 k/uL (1.3-7.7); Neutrophils % (A) 80 %; Platelet Count 375 k/uL (150-450); RBC 5.07 m/uL (4.30-5.90); RDW 12.8 % (11.5-15.5); WBC 13.5 k/uL (3.8-10.6)
[2019-02-17 14:52] LABS: Appearance,Urine Clear (Clear); Bilirubin,Urine Negative (Negative); Blood,Urine Trace (Negative); Color,Urine Yellow; Glucose,Urine (UA) Negative (Negative); Hyaline Casts,Urine 24 /lpf (0-2); Ketones,Urine 1+ (Negative); Leukocyte Esterase,Urine Negative (Negative); Mucus,Urine Many /hpf; Nitrite,Urine Negative (Negative); PH, Urine 5.5 (5.0-8.0); Protein,Urine 1+ (Negative); RBC,Urine <1 /hpf (0-5); Specific Gravity,Urine 1.031 (1.001-1.035); Squamous Epithelial Cell,Urine <1 /hpf (0-4); Urobilinogen,Urine <2.0 mg/dL (<2.0)
--- NOTE | 2019-02-17 15:12 | ED ---
Abdominal Pain HPI - General Chief Complaint: Abdominal Pain Stated Complaint: Abd pain, NVD, Syncope other day Time Seen by Provider: 02/17/19 14:03 Source: patient, RN notes reviewed Mode of arrival: ambulatory Limitations: no limitations - History of Present Illness Initial Comments: This a 43-year-old male presents emergency Department with chief complaint of abdominal pain. Patient was admitted to [facility] weeks ago for colitis took a course antibiotics and was doing a little bit better. Patient was seen here 2 days ago and had repeat labs and CT with no acute findings. Patient's hand worsening symptoms since then. Patient also states that he passed out after being discharged from the hospital. Patient injured his right hand middle finger. Patient states that he also has an abrasion to his left elbow. His tetanus is up-to-date. He denies any current headache, neck pain, chest pain, dyspnea. Patient was supposed to follow-up in 6 weeks for EGD and colonoscopy. Patient states the pain primarily is in his right upper quadrant he doesn't at days had increasing bloating, persistent hiccups. Patient denies any prior prior abdominal surgeries. Denies any fevers he does admit to cold sweats and chills overnight. He states this is associated with a syncopal episode. - Related Data Home Medications Medication Instructions Recorded Confirmed Ibuprofen [Motrin Ib] 600 mg PO Q6H PRN 11/30/17 01/28/19 Previous Rx's Medication Instructions Recorded Ciprofloxacin HCl [Cipro] 500 mg PO Q12HR #20 tablet 01/30/19 metroNIDAZOLE [Flagyl] 500 mg PO TID #30 tab 01/30/19 Allergies Allergy/AdvReac Type Severity Reaction Status Date / Time No Known Allergies Allergy Verified 02/17/19 13:56 Review of Systems ROS Statement: Those systems with pertinent positive or pertinent negative responses have been documented in the HPI. ROS Other: All systems not noted in ROS Statement are negative. Past Medical History Past Medical History: Hypertension Additional Past Medical History / Comment(s): chronic back pain History of Any Multi-Drug Resistant Organisms: None Reported Past Surgical History: Adenoidectomy Past Psychological History: No Psychological Hx Reported Smoking Status: Current every day smoker Past Alcohol Use History: None Reported Past Drug Use History: None Reported - Past Family History Father Family Medical History: Diabetes Mellitus Additional Family Medical History / Comment(s): First cousin has been diagnosed with Chrons, Great Uncle had colon cancer. Mother Family Medical History: Thyroid Disorder General Exam Limitations: no limitations General appearance: alert, in no apparent distress Head exam: Present: atraumatic, normocephalic, normal inspection Eye exam: Present: normal appearance, PERRL, EOMI. Absent: scleral icterus, conjunctival injection, periorbital swelling ENT exam: Present: normal exam, normal oropharynx, mucous membranes moist Neck exam: Present: normal inspection, full ROM. Absent: tenderness, meningismus, lymphadenopathy Respiratory exam: Present: normal lung sounds bilaterally. Absent: respiratory distress, wheezes, rales, rhonchi, stridor Cardiovascular Exam: Present: normal rhythm, tachycardia, normal heart sounds. Absent: systolic murmur, diastolic murmur, rubs, gallop, clicks GI/Abdominal exam: Present: soft, tenderness (Mild diffuse with moderate right upper quadrant), normal bowel sounds. Absent: distended, guarding, rebound, rigid Neurological exam: Present: alert, oriented X3, CN II-XII intact, reflexes normal. Absent: motor sensory deficit Skin exam: Present: warm, dry, intact, normal color. Absent: rash Course Vital Signs 02/17/19 02/17/19 13:53 15:48 Temperature 97.5 F L Pulse Rate 119 H 82 Respiratory 22 16 Rate Blood Pressure 122/90 140/87 O2 Sat by Pulse 97 98 Oximetry Medical Decision Making - Medical Decision Making Patient will be admitted to bowel ultrasound shows cholelithiasis with acute cholecystitis thick gallbladder wall. Patient's bilirubin has trended up, white count has trended up with worsening abdominal pain. - Lab Data Result diagrams: 02/17/19 14:11 02/17/19 14:11 Lab Results 02/17/19 02/17/19 02/17/19 Range/Units 14:11 14:11 14:11 WBC 13.5 H (3.8-10.6) k/uL RBC 5.07 (4.30-5.90) m/uL Hgb 15.4 (13.0-17.5) gm/dL Hct 45.0 (39.0-53.0) % MCV 88.6 (80.0-100.0) fL MCH 30.4 (25.0-35.0) pg MCHC 34.3 (31.0-37.0) g/dL RDW 12.8 (11.5-15.5) % Plt Count 375 (150-450) k/uL Neutrophils % 80 % Lymphocytes % 6 % Monocytes % 9 % Eosinophils % 1 % Basophils % 2 % Neutrophils # 10.8 H (1.3-7.7) k/uL Lymphocytes # 0.8 L (1.0-4.8) k/uL Monocytes # 1.3 H (0-1.0) k/uL Eosinophils # 0.1 (0-0.7) k/uL Basophils # 0.3 H (0-0.2) k/uL Sodium 134 L (137-145) mmol/L Potassium 4.2 (3.5-5.1) mmol/L Chloride 94 L (98-107) mmol/L Carbon Dioxide 28 (22-30) mmol/L Anion Gap 12 mmol/L BUN 26 H (9-20) mg/dL Creatinine 0.89 (0.66-1.25) mg/dL Est GFR (CKD-EPI)AfAm >90 (>60 ml/min/1.73 sqM) Est GFR (CKD-EPI)NonAf >90 (>60 ml/min/1.73 sqM) Glucose 163 H (74-99) mg/dL Plasma Lactic Acid [place] 1.6 (0.7-2.0) mmol/L Calcium 9.9 (8.4-10.2) mg/dL Total Bilirubin 1.7 H (0.2-1.3) mg/dL AST 20 (17-59) U/L ALT 28 (21-72) U/L Alkaline Phosphatase 71 (38-126) U/L Troponin I (0.000-0.034) ng/mL Total Protein 7.6 (6.3-8.2) g/dL Albumin 4.1 (3.5-5.0) g/dL Amylase 44 (30-110) U/L Lipase <10 L (23-300) U/L Urine Color Urine Appearance (Clear) Urine pH (5.0-8.0) Ur Specific [place] (1.001-1.035) Urine Protein (Negative) Urine Glucose (UA) (Negative) Urine Ketones (Negative) Urine Blood (Negative) Urine Nitrite (Negative) Urine Bilirubin (Negative) Urine Urobilinogen (<2.0) mg/dL Ur Leukocyte Esterase (Negative) Urine RBC (0-5) /hpf Urine WBC (0-5) /hpf Ur Squamous Epith Cells (0-4) /hpf Hyaline Casts (0-2) /lpf Urine Mucus (None) /hpf 02/17/19 02/17/19 Range/Units 14:11 14:11 WBC (3.8-10.6) k/uL RBC (4.30-5.90) m/uL Hgb (13.0-17.5) gm/dL Hct (39.0-53.0) % MCV (80.0-100.0) fL MCH (25.0-35.0) pg MCHC (31.0-37.0) g/dL RDW (11.5-15.5) % Plt Count (150-450) k/uL Neutrophils % % Lymphocytes % % Monocytes % % Eosinophils % % Basophils % % Neutrophils # (1.3-7.7) k/uL Lymphocytes # (1.0-4.8) k/uL Monocytes # (0-1.0) k/uL Eosinophils # (0-0.7) k/uL Basophils # (0-0.2) k/uL Sodium (137-145) mmol/L Potassium (3.5-5.1) mmol/L Chloride (98-107) mmol/L Carbon Dioxide (22-30) mmol/L Anion Gap mmol/L BUN (9-20) mg/dL Creatinine (0.66-1.25) mg/dL Est GFR (CKD-EPI)AfAm (>60 ml/min/1.73 sqM) Est GFR (CKD-EPI)NonAf (>60 ml/min/1.73 sqM) Glucose (74-99) mg/dL Plasma Lactic Acid [place] (0.7-2.0) mmol/L Calcium (8.4-10.2) mg/dL Total Bilirubin (0.2-1.3) mg/dL AST (17-59) U/L ALT (21-72) U/L Alkaline Phosphatase (38-126) U/L Troponin I <0.012 (0.000-0.034) ng/mL Total Protein (6.3-8.2) g/dL Albumin (3.5-5.0) g/dL Amylase (30-110) U/L Lipase (23-300) U/L Urine Color Yellow Urine Appearance Clear (Clear) Urine pH 5.5 (5.0-8.0) Ur Specific [place] 1.031 (1.001-1.035) Urine Protein 1+ H (Negative) Urine Glucose (UA) Negative (Negative) Urine Ketones 1+ H (Negative) Urine Blood Trace H (Negative) Urine Nitrite Negative (Negative) Urine Bilirubin Negative (Negative) Urine Urobilinogen <2.0 (<2.0) mg/dL Ur Leukocyte Esterase Negative (Negative) Urine RBC <1 (0-5) /hpf Urine WBC 3 (0-5) /hpf Ur Squamous Epith Cells <1 (0-4) /hpf Hyaline Casts 24 H (0-2) /lpf Urine Mucus Many H (None) /hpf - EKG Data EKG Comments: EKG performed at 14:43 normal sinus rhythm with nonspecific T-wave abnormality V3 V4, rate of 98 MN 142 QRS 88 QT/QTC 354/451 Disposition Clinical Impression: Cholecystitis, acute with cholelithiasis Disposition: ADMITTED IP TO THIS [facility] Condition: Stable Referrals: None,Stated [Primary Care Provider] - 1-2 days
--- NOTE | 2019-02-17 15:41 | US ---
EXAMINATION TYPE: US gallbladder DATE OF EXAM: 02/17/2019 COMPARISON: CT CLINICAL HISTORY: pain. Pain EXAM MEASUREMENTS: Liver Length: 16.9 cm Gallbladder Wall: 0.4 cm CBD: 0.5 cm Right Kidney: 11.2 x 6.4 x 6.6 cm Pt very gassy, difficult scan Pancreas: Obscured by bowel gas Liver: Left lobe difficult to visualize due to overlying bowel gas, Heterogeneous liver with possibl e small cyst right lobe= 0.5 x 0.6 cm Gallbladder: Sludge with multiple mobile gallstones, thickened wall Evidence for sonographic Sena's sign: Yes CBD: Difficult to visualize, did not appear dilated Right Kidney: wnl Right adrenal lesion as seen on CT= 2.0 x 1.5 cm IMPRESSION: 1. Cholelithiasis with gallbladder wall thickening. Correlate for acute cholecystitis.
--- NOTE | 2019-02-17 15:46 | XR ---
EXAMINATION TYPE: XR finger RT DATE OF EXAM: 02/17/2019 CLINICAL HISTORY: pain Right third digit. TECHNIQUE: 3 views of the Right third digit are submitted. COMPARISON: None FINDINGS: No displaced fracture is seen with certainty. Joint spaces are well-preserved. Correlate for soft tissue injury. IMPRESSION: No acute displaced fracture or dislocation.
[2019-02-17] MEDS ORDERED: HYDROmorphone 0.5 MG/0.5 ML SYRINGE IVP PRN (16:13)
[2019-02-17] MEDS ORDERED: ONDANSETRON 4 MG/2 ML VIAL IVP PRN (16:13)
[2019-02-17] MEDS ORDERED: NALOXONE 0.4 MG/ML 1 ML VIAL IV PRN (16:13)
[2019-02-17] MEDS ORDERED: PIPERACILLIN-TAZOBACTAM 3.375 GM in SODIUM CHLORIDE 0.9% 100 ML IVPB STA (16:14)
[2019-02-17] MEDS: SODIUM CHLORIDE 0.9% 1,000 ML IV SCH (16:30)
[2019-02-17 18:03] VITALS: BMI 31.3
[2019-02-17] MEDS: HYDROmorphone 1 MG/ML 1 ML SYRINGE IVP PRN ×2 (18:19→21:00)
[2019-02-17] MEDS: HEPARIN SODIUM,PORCINE 5,000 UNIT/ML 1 ML VIAL SQ SCH (20:12)
[2019-02-17] MEDS: NICOTINE 21MG/24HR PATCH TRANSDERM SCH (20:12)
[2019-02-18] MEDS: PIPERACILLIN-TAZOBACTAM 3.375 GM in SODIUM CHLORIDE 0.9% 100 ML IVPB SCH ×4 (00:06→23:50)
[2019-02-18] MEDS: HYDROmorphone 1 MG/ML 1 ML SYRINGE IVP PRN ×6 (00:07→18:10)
[2019-02-18] MEDS: HEPARIN SODIUM,PORCINE 5,000 UNIT/ML 1 ML VIAL SQ SCH ×3 (03:17→19:21)
[2019-02-18] MEDS: SODIUM CHLORIDE 0.9% 1,000 ML IV SCH ×2 (03:17→14:47)
[2019-02-18 07:04] LABS: ALT 29 U/L (21-72); AST 16 U/L (17-59); African American GFR (CKD) >90 (>60 ml/min/1.73 sqM); Albumin 3.4 g/dL (3.5-5.0); Alkaline Phosphatase 59 U/L (38-126); Anion Gap 10 mmol/L; Blood Urea Nitrogen 24 mg/dL (9-20); Calcium 8.8 mg/dL (8.4-10.2); Carbon Dioxide 26 mmol/L (22-30); Chloride 101 mmol/L (98-107); Glucose 111 mg/dL (74-99); Non-African American GFR(CKD) >90 (>60 ml/min/1.73 sqM); Potassium 3.8 mmol/L (3.5-5.1); Sodium 137 mmol/L (137-145); Total Bilirubin 1.5 mg/dL (0.2-1.3); Total Protein 6.3 g/dL (6.3-8.2)
[2019-02-18] MEDS ORDERED: PROPOFOL 10 MG/ML 20 ML VIAL IV ONE (07:58)
[2019-02-18] MEDS ORDERED: LIDOCAINE 1% INJ 10MG/ML (20 ML MDV) ONE (07:58)
[2019-02-18] MEDS ORDERED: GLYCOPYRROLATE 0.2 MG/ML 2 ML VIAL ONE (07:58)
[2019-02-18] MEDS ORDERED: fentaNYL (PF) 50 MCG/ML 2 ML AMP ONE (07:58)
[2019-02-18] MEDS ORDERED: NEOSTIGMINE 1 MG/ML 10 ML VIAL ONE (07:58)
[2019-02-18] MEDS ORDERED: ROCURONIUM BROMIDE 10 MG/ML 10 ML VIAL IV ONE (07:58)
[2019-02-18] MEDS ORDERED: MIDAZOLAM 2 MG/2 ML VIAL ONE (07:58)
[2019-02-18] MEDS ORDERED: KETOROLAC 30 MG/ML 1 ML VIAL ONE (07:58)
[2019-02-18] MEDS ORDERED: SUCCINYLCHOLINE CHLORIDE 100 MG/5 ML SYR IV ONE (07:58)
[2019-02-18] MEDS ORDERED: SODIUM CHLORIDE 0.9% 1,000 ML IV ONE (08:02)
--- NOTE | 2019-02-18 08:05 | P.GSHP ---
History of Present Illness H&P Date: 02/18/19 Chief Complaint: Right upper quadrant abdominal pain Patient known to our service. He was just hospitalized 3 weeks ago for right- sided colitis. Those symptoms resolved. Approximately 10 days ago the patient started having pain again in the right upper abdomen at this time. He came to the ER 3 days ago for evaluation. CAT scan was repeated. Gallstones were seen however no other abnormalities were identified. The thickening of the colon appeared improved. He was discharged home from the ER. He came to the hospital again yesterday complaining of increased right upper quadrant pain. White blood cell count is elevated. The liver been slightly elevated. Repeat today shows bilirubin 1.7. ALT AST and alkaline phosphatase normal. Denies any change in the color of the skin urine or stool. Says his pain radiates to the right side of his back. No hematuria. Some nausea but no vomiting. Appetite somewhat diminished. 2 days ago the patient had a syncopal episode at home. Fell down and cut his lip, had an abrasion to his elbow and hip, dislocated a finger. Etiology for that unclear. Denies melanotic stools. He was tachycardic on arrival. No fevers. - Review of Systems Comment: The patient denies any acute changes in vision or hearing, no dysphagia or odynophagia, no chest pain or shortness of breath, no dysuria or hematuria, no headache, no runny nose, no rectal bleeding or melena, no unexplained weight loss Past Medical History Past Medical History: Hypertension Additional Past Medical History / Comment(s): chronic back pain, colitis History of Any Multi-Drug Resistant Organisms: None Reported Past Surgical History: Adenoidectomy Smoking Status: Current every day smoker - Past Family History Father Family Medical History: Diabetes Mellitus Additional Family Medical History / Comment(s): First cousin has been diagnosed with Chrons, Great Uncle had colon cancer. Mother Family Medical History: Thyroid Disorder Medications and Allergies Home Medications Medication Instructions Recorded Confirmed Type Ibuprofen [Motrin Ib] 400 mg PO Q6H MDD PAIN 02/17/19 02/17/19 History Allergies Allergy/AdvReac Type Severity Reaction Status Date / Time bee venom protein (honey bee) Allergy Anaphylaxis Verified 02/17/19 16:40 Surgical - Exam Vital Signs Temp Pulse Resp BP Pulse Ox 97.5 F L 119 H 22 122/90 97 02/17/19 13:53 02/17/19 13:53 02/17/19 13:53 02/17/19 13:53 02/17/19 13:53 Physical exam: General: Well-developed, well-nourished HEENT: Normocephalic, sclerae nonicteric Abdomen: Mild to moderate right upper quadrant tenderness, no rebound or guarding, nondistended Extremities: No edema Neuro: Alert and oriented Results - Labs 02/17/19 14:11 02/18/19 05:55 Abnormal Lab Results - Last 24 Hours (Table) 02/17/19 02/17/19 02/17/19 Range/Units 14:11 14:11 14:11 WBC 13.5 H (3.8-10.6) k/uL Neutrophils # 10.8 H (1.3-7.7) k/uL Lymphocytes # 0.8 L (1.0-4.8) k/uL Monocytes # 1.3 H (0-1.0) k/uL Basophils # 0.3 H (0-0.2) k/uL Sodium 134 L (137-145) mmol/L Chloride 94 L (98-107) mmol/L BUN 26 H (9-20) mg/dL Glucose 163 H (74-99) mg/dL Total Bilirubin 1.7 H (0.2-1.3) mg/dL AST (17-59) U/L Albumin (3.5-5.0) g/dL Lipase <10 L (23-300) U/L Urine Protein 1+ H (Negative) Urine Ketones 1+ H (Negative) Urine Blood Trace H (Negative) Hyaline Casts 24 H (0-2) /lpf Urine Mucus Many H (None) /hpf 02/18/19 Range/Units 05:55 WBC (3.8-10.6) k/uL Neutrophils # (1.3-7.7) k/uL Lymphocytes # (1.0-4.8) k/uL Monocytes # (0-1.0) k/uL Basophils # (0-0.2) k/uL Sodium (137-145) mmol/L Chloride (98-107) mmol/L BUN 24 H (9-20) mg/dL Glucose 111 H (74-99) mg/dL Total Bilirubin 1.5 H (0.2-1.3) mg/dL AST 16 L (17-59) U/L Albumin 3.4 L (3.5-5.0) g/dL Lipase (23-300) U/L Urine Protein (Negative) Urine Ketones (Negative) Urine Blood (Negative) Hyaline Casts (0-2) /lpf Urine Mucus (None) /hpf Diabetes panel 02/17/19 02/18/19 Range/Units 14:11 05:55 Sodium 134 L 137 (137-145) mmol/L Potassium 4.2 3.8 (3.5-5.1) mmol/L Chloride 94 L 101 (98-107) mmol/L Carbon Dioxide 28 26 (22-30) mmol/L BUN 26 H 24 H (9-20) mg/dL Creatinine 0.89 0.90 (0.66-1.25) mg/dL Glucose 163 H 111 H (74-99) mg/dL Calcium 9.9 8.8 (8.4-10.2) mg/dL AST 20 16 L (17-59) U/L ALT 28 29 (21-72) U/L Alkaline Phosphatase 71 59 (38-126) U/L Total Protein 7.6 6.3 (6.3-8.2) g/dL Albumin 4.1 3.4 L (3.5-5.0) g/dL Calcium panel 02/17/19 02/18/19 Range/Units 14:11 05:55 Calcium 9.9 8.8 (8.4-10.2) mg/dL Albumin 4.1 3.4 L (3.5-5.0) g/dL Pituitary panel 02/17/19 02/18/19 Range/Units 14:11 05:55 Sodium 134 L 137 (137-145) mmol/L Potassium 4.2 3.8 (3.5-5.1) mmol/L Chloride 94 L 101 (98-107) mmol/L Carbon Dioxide 28 26 (22-30) mmol/L BUN 26 H 24 H (9-20) mg/dL Creatinine 0.89 0.90 (0.66-1.25) mg/dL Glucose 163 H 111 H (74-99) mg/dL Calcium 9.9 8.8 (8.4-10.2) mg/dL Adrenal panel 02/17/19 02/18/19 Range/Units 14:11 05:55 Sodium 134 L 137 (137-145) mmol/L Potassium 4.2 3.8 (3.5-5.1) mmol/L Chloride 94 L 101 (98-107) mmol/L Carbon Dioxide 28 26 (22-30) mmol/L BUN 26 H 24 H (9-20) mg/dL Creatinine 0.89 0.90 (0.66-1.25) mg/dL Glucose 163 H 111 H (74-99) mg/dL Calcium 9.9 8.8 (8.4-10.2) mg/dL Total Bilirubin 1.7 H 1.5 H (0.2-1.3) mg/dL AST 20 16 L (17-59) U/L ALT 28 29 (21-72) U/L Alkaline Phosphatase 71 59 (38-126) U/L Total Protein 7.6 6.3 (6.3-8.2) g/dL Albumin 4.1 3.4 L (3.5-5.0) g/dL Assessment and Plan (1) Cholecystitis, acute with cholelithiasis Narrative/Plan: 43-year-old male with suspected acute cholecystitis. The patient's presentation with the recent admission and the syncopal episode earlier this week certainly atypical. Other etiologies for this patient's symptoms were discussed. These would include ongoing colonic inflammation or perforated ulcer. Will evaluate t he abdomen laparoscopically at the onset. Risks of bleeding, infection, bile leak, bile duct injury, retained common bile duct stone, trocar injury, conversion to an open procedure, hernia, anesthesia related complications were reviewed. The patient understands and wishes to proceed. Current Visit: Yes Status: Acute Code(s): K80.00 - CALCULUS OF GALLBLADDER W ACUTE CHOLECYST W/O OBSTRUCTION SNOMED Code(s): 59938439
[2019-02-18] MEDS ORDERED: BUPIVACAINE (PF) 0.25% 30 ML VIAL SQ ONE ×2 (08:46)
[2019-02-18] MEDS ORDERED: PANTOPRAZOLE 40 MG/10 ML VIAL IV SCH (09:00)
--- NOTE | 2019-02-18 09:04 | P.OP ---
Date of Procedure: 02/18/19 Procedure(s) Performed: PREOPERATIVE DIAGNOSIS: Acute calculus cholecystitis POSTOPERATIVE DIAGNOSIS: Same PROCEDURE: Laparoscopic cholecystectomy SURGEON: Monique EBL: Minimal see anesthesia record ANESTHESIA: Gen. COMPLICATIONS: None OPERATIVE PROCEDURE: The patient was brought and placed on the operating room table in the supine position. The patient was placed under general anesthesia at that time. The abdomen was prepped and draped in the usual sterile fashion. A small vertical infraumbilical incision was made. The fascia was grasped with the Nohemi forceps. The fascia was retracted anteriorly. The Veress needle was advanced into the peritoneal cavity. The saline drop test was normal. Ins ufflation took place up to 15 mmHg. A 5 mm optical trocar was advanced and the peritoneal cavity. 2 additional 5 mm trochars were placed in the right upper quadrant under direct visualization. A 12 mm trocar was advanced into the epigastric incision site. The patient's perineal cavity was inspected. The patient had mildly dilated small bowel loops throughout. No transition point was seen. Mild ileus was suspected. The visualized colon and the appendix appeared normal. There was a small amount of serous fluid within the perineal cavity. The gallbladder was inspected and appeared acutely inflamed and distended. The gallbladder was actually aspirated in order to be able to maneuver the gallbladder. A small opening in the fundus was created in the bilious fluid was evacuated using the suction device. The gallbladder was retracted superiorly and laterally. The peritoneum overlying the infundibulum was bluntly dissected. The patient's cystic duct was visualized. The junction between the cystic duct common and hepatic duct was identified. The cystic duct was then divided after placement of 3 12 mm clips on the patient's side and one on the specimen side. The cystic artery was identified and clipped as well. A small vessel was seen along the gallbladder fossa and clipped as well. The gallbladder was then removed from the liver bed using electrocautery. The gallbladder was then removed from the epigastric trocar site with an Endo Catch bag. The gallbladder fossa was irrigated with saline. There was no evidence of any bleeding or biliary drainage seen. The fascia at the 12 millimeter site was closed using a Vitaly-Sammy 0 Vicryl stitch. The trochars were then removed. The skin at all 4 sites was closed using a 4-0 Monocryl stitch. Skin glue was utilized on the incision sites. At the end of this procedure the sponge and needle counts were correct. DISPOSITION: Stable to the recovery room
[2019-02-18 09:16] LABS: Basophils # (A) 0.1 k/uL (0-0.2); Basophils % (A) 1 %; Eosinophils # (A) 0.1 k/uL (0-0.7); Eosinophils % (A) 1 %; HCT 39.9 % (39.0-53.0); HGB 13.2 gm/dL (13.0-17.5); Lymphocytes % (A) 11 %; MCH 30.4 pg (25.0-35.0); MCHC 33.1 g/dL (31.0-37.0); MCV 91.6 fL (80.0-100.0); Mean Platelet Volume 7.8; Monocytes # (A) 0.9 k/uL (0-1.0); Monocytes % (A) 10 %; Neutrophils # (A) 6.6 k/uL (1.3-7.7); Neutrophils % (A) 75 %; Platelet Count 335 k/uL (150-450); RBC 4.35 m/uL (4.30-5.90); RDW 12.8 % (11.5-15.5); WBC 8.8 k/uL (3.8-10.6)
[2019-02-18] MEDS: NICOTINE 21MG/24HR PATCH TRANSDERM SCH (10:12)
[2019-02-18 10:25] VITALS: RESP 16
--- NOTE | 2019-02-18 12:43 | P.CONS ---
History of Present Illness - Reason for Consult Consult date: 02/18/19 consult for medical management of HTN Requesting physician: Ishan Amaya - Chief Complaint abdominal pain/consult for medical management of HTN - History of Present Illness The patient is a 43-year-old male with a past medical history of essential hypertension and chronic back pain secondary to lumbar DJD and degenerative disc disease that is admitted under general surgery service after having a laparoscopic cholecystectomy done earlier today after his found to have acute cholecystitis after presenting with right upper quadrant abdominal pain with intermittent episodes of bloating pickups and nausea with associated subjective fevers and chills. Patient was noted to have a white count of 13.5 but was afebrile. The patient doing well postop and has no complaints he denies any chest pain or shortness of breath, denies any abdominal pain does report some bloating. He denies any focal weakness or slurred speech denies headache. Chart review indicates she had a right upper quadrant ultrasound done that was consistent with cholelithiasis with gallbladder wall thickening suggestive of acute cholecystitis. Patient was started and is continued on Zosyn Review of Systems pertinent positives per HPI all other review of systems otherwise negative Past Medical History Past Medical History: Hypertension Additional Past Medical History / Comment(s): chronic back pain, colitis History of Any Multi-Drug Resistant Organisms: None Reported Past Surgical History: Adenoidectomy Smoking Status: Current every day smoker - Past Family History Father Family Medical History: Diabetes Mellitus Additional Family Medical History / Comment(s): First cousin has been diagnosed with Chrons, Great Uncle had colon cancer. Mother Family Medical History: Thyroid Disorder Medications and Allergies Home Medications Medication Instructions Recorded Confirmed Type Ibuprofen [Motrin Ib] 400 mg PO Q6H MDD PAIN 02/17/19 02/17/19 History Hydrocodone/Acetaminophen [[place] 1 tab PO Q6HR PRN 3 Days #10 tab 02/18/19 Rx 5-325] Allergies Allergy/AdvReac Type Severity Reaction Status Date / Time bee venom protein (honey bee) Allergy Anaphylaxis Verified 02/17/19 16:40 Physical Exam Vitals: Vital Signs Temp Pulse Pulse Resp BP BP Pulse Ox 02/18/19 11:03 97.6 F 78 16 132/79 96 02/18/19 10:50 97.7 F 77 16 128/77 95 02/18/19 10:33 97.9 F 81 16 120/70 94 L 02/18/19 10:15 97.9 F 82 16 128/76 94 L 02/18/19 10:00 97.6 F 74 15 139/79 96 02/18/19 09:45 72 16 129/76 95 02/18/19 09:30 71 16 120/72 94 L 02/18/19 09:15 67 16 147/74 94 L 02/18/19 09:10 97.3 F L 75 14 143/78 93 L 02/18/19 05:30 97.7 F 83 16 128/75 97 02/18/19 00:00 18 02/17/19 19:48 96.8 F L 86 18 124/58 97 02/17/19 19:42 86 18 02/17/19 17:49 98 F 88 16 134/81 99 02/17/19 17:29 98.0 F 86 16 122/71 97 02/17/19 15:48 82 16 140/87 98 02/17/19 13:53 97.5 F L 119 H 22 122/90 97 Intake and Output 02/17/19 02/18/19 02/18/19 22:59 06:59 14:59 Intake Total 640 500 650 Output Total 10 Balance 640 500 640 Intake: IV 650 Intake, IV Titration 400 500 Amount Piperacillin-Tazobactam 3 400 100 .375 gm In Sodium Chloride 0.9% 100 ml @ 25 mls/hr IVPB Q8HR [facility] Rx# :[id number] Sodium Chloride 0.9% 1, 400 000 ml @ 100 mls/hr IV . Q10H [facility]INOD Rx#:[id number] Oral 240 Output: Estimated Blood Loss 10 Other: Voiding Method Toilet Toilet # Voids 2 2 Constitutional: No acute distress, conversant, pleasant Eyes: Anicteric sclerae, moist conjunctiva, no lid-lag, PERRLA ENMT: NC/AT,Oropharynx clear, no erythema, exudates Neck:Supple, FROM, no masses, or JVD, No carotid bruits; No thyromegaly Lungs: Clear to auscultation, Clear to percussion, Normal respiratory effort, no accessory muscle use Cardiovascular: Heart regular in rate and rhythm, No murmurs, gallops, or rubs no peripheral edema Abdominal: Soft Nontender, minimally distended, no guarding, no rebound or rigidity, Normoactive bowel sounds normoactive bowel sounds, trocar sites clean dry and intact Skin: Normal temperature, tone, texture, turgor, No induration No subcutaneous nodules, No rash, lesions, No ulcers Extremities:No digital cyanosis No clubbing, Pedal pulses intact and symmetric al Radial pulses intact and symmetrical Normal gait and station, No calf tenderness Psychiatric: Alert and oriented to person, place and time, Appropriate affect Intact judgement Neuro: Muscles Strength 5/5 in all 4 extremities, Sensation to light touch grossly present throughout, Cranial nerves II-XII grossly intact. No focal sensory deficits Results CBC & Chem 7: 02/18/19 05:55 02/18/19 05:55 Labs: Abnormal Lab Results - Last 24 Hours (Table) 02/17/19 02/17/19 02/17/19 Range/Units 14:11 14:11 14:11 WBC 13.5 H (3.8-10.6) k/uL Neutrophils # 10.8 H (1.3-7.7) k/uL Lymphocytes # 0.8 L (1.0-4.8) k/uL Monocytes # 1.3 H (0-1.0) k/uL Basophils # 0.3 H (0-0.2) k/uL Sodium 134 L (137-145) mmol/L Chloride 94 L (98-107) mmol/L BUN 26 H (9-20) mg/dL Glucose 163 H (74-99) mg/dL Total Bilirubin 1.7 H (0.2-1.3) mg/dL AST (17-59) U/L Albumin (3.5-5.0) g/dL Lipase <10 L (23-300) U/L Urine Protein 1+ H (Negative) Urine Ketones 1+ H (Negative) Urine Blood Trace H (Negative) Hyaline Casts 24 H (0-2) /lpf Urine Mucus Many H (None) /hpf 02/18/19 Range/Units 05:55 WBC (3.8-10.6) k/uL Neutrophils # (1.3-7.7) k/uL Lymphocytes # (1.0-4.8) k/uL Monocytes # (0-1.0) k/uL Basophils # (0-0.2) k/uL Sodium (137-145) mmol/L Chloride (98-107) mmol/L BUN 24 H (9-20) mg/dL Glucose 111 H (74-99) mg/dL Total Bilirubin 1.5 H (0.2-1.3) mg/dL AST 16 L (17-59) U/L Albumin 3.4 L (3.5-5.0) g/dL Lipase (23-300) U/L Urine Protein (Negative) Urine Ketones (Negative) Urine Blood (Negative) Hyaline Casts (0-2) /lpf Urine Mucus (None) /hpf Assessment and Plan Assessment: Essential hypertension Lumbar DJD Lumbar DDD Chronic pain Acute cholecystitis status post laparoscopic vasectomy Plan: The patient is admitted to general surgery and is postop day #0 after having laparoscopic ostectomy done secondary to acute cholecystitis, lipid defer to primary team regarding ongoing analgesic therapy. Agree with continuing Zosyn for at least another 24 hours postop. Patient is comfortable and is hemodynamically stable we'll resume his home medications. Continue to follow his clinical course Anticipated discharge place: Home Anticipated discharge: Tomorrow CODE STATUS: Full code Prophylaxis: SCDs and heparin
[2019-02-19] MEDS: HEPARIN SODIUM,PORCINE 5,000 UNIT/ML 1 ML VIAL SQ SCH ×3 (03:36→19:54)
[2019-02-19] MEDS: SODIUM CHLORIDE 0.9% 1,000 ML IV SCH ×3 (06:02→19:54)
[2019-02-19 08:50] LABS: Basophils # (A) 0.2 k/uL (0-0.2); Basophils % (A) 2 %; Eosinophils # (A) 0.1 k/uL (0-0.7); Eosinophils % (A) 1 %; HCT 41.9 % (39.0-53.0); HGB 13.3 gm/dL (13.0-17.5); Lymphocytes % (A) 13 %; MCH 29.5 pg (25.0-35.0); MCHC 31.8 g/dL (31.0-37.0); MCV 92.5 fL (80.0-100.0); Mean Platelet Volume 7.8; Monocytes # (A) 0.7 k/uL (0-1.0); Monocytes % (A) 8 %; Neutrophils % (A) 75 %; Platelet Count 337 k/uL (150-450); RBC 4.53 m/uL (4.30-5.90); RDW 12.7 % (11.5-15.5); WBC 8.1 k/uL (3.8-10.6)
[2019-02-19 09:11] LABS: African American GFR (CKD) >90 (>60 ml/min/1.73 sqM); Anion Gap 10 mmol/L; Blood Urea Nitrogen 13 mg/dL (9-20); Carbon Dioxide 26 mmol/L (22-30); Chloride 100 mmol/L (98-107); Glucose 98 mg/dL (74-99); Potassium 3.9 mmol/L (3.5-5.1); Sodium 136 mmol/L (137-145)
[2019-02-19 09:12] LABS: ALT 35 U/L (21-72); AST 14 U/L (17-59); Albumin 3.5 g/dL (3.5-5.0); Alkaline Phosphatase 59 U/L (38-126); Calcium 8.8 mg/dL (8.4-10.2); Non-African American GFR(CKD) >90 (>60 ml/min/1.73 sqM); Total Bilirubin 0.9 mg/dL (0.2-1.3); Total Protein 6.5 g/dL (6.3-8.2)
[2019-02-19] MEDS ORDERED: HYDROcodone/APAP 7.5-325MG 1 EACH TAB PO PRN (09:21)
[2019-02-19] MEDS: PIPERACILLIN-TAZOBACTAM 3.375 GM in SODIUM CHLORIDE 0.9% 100 ML IVPB SCH ×3 (09:30→23:54)
[2019-02-19] MEDS: NICOTINE 21MG/24HR PATCH TRANSDERM SCH (09:30)
[2019-02-19] MEDS: PANTOPRAZOLE 40 MG TABLET PO SCH (09:30)
--- NOTE | 2019-02-19 11:33 | P.PN ---
Subjective Progress Note Date: 02/19/19 Patient seen and examined at bedside reports pain is tolerable, denies any nausea vomiting or any significant pain. Hemodynamically stable and afebrile leukocytosis has resolved. Patient ready to go home today Objective - Vital Signs Vital signs: Vital Signs Temp 97.8 F 02/19/19 05:01 Pulse 82 02/19/19 05:01 Resp 16 02/19/19 05:01 BP 131/79 02/19/19 05:01 Pulse Ox 97 02/19/19 05:01 Intake & Output 02/18/19 02/19/19 02/19/19 18:59 06:59 18:59 Intake Total 890 1180 Output Total 1210 Balance -320 1180 Intake: IV 650 Oral 240 1180 Output: Urine 1200 Estimated Blood Loss 10 Other: Voiding Method Toilet Toilet # Voids 1 2 - Exam Constitutional: No acute distress, conversant, pleasant Eyes: Anicteric sclerae, moist conjunctiva, no lid-lag, PERRLA ENMT: NC/AT,Oropharynx clear, no erythema, exudates Neck:Supple, FROM, no masses, or JVD, No carotid bruits; No thyromegaly Lungs: Clear to auscultation, Clear to percussion, Normal respiratory effort, no accessory muscle use Cardiovascular: Heart regular in rate and rhythm, No murmurs, gallops, or rubs no peripheral edema Abdominal: Soft Nontender, nom distended, no guarding, no rebound or rigidity, Normoactive bowel sounds No hepatomegaly, No splenomegaly, No palpable mass No abdominal wall hernia noted Skin: Normal temperature, tone, texture, turgor, No induration No subcutaneous nodules, No rash, lesions, No ulcers Extremities:No digital cyanosis No clubbing, Pedal pulses intact and symmetrical Radial pulses intact and symmetrical Normal gait and station, No calf tenderness Psychiatric: Alert and oriented to person, place and time, Appropriate affect Intact judgement Neuro: Muscles Strength 5/5 in all 4 extremities, Sensation to light touch grossly present throughout, Cranial nerves II-XII grossly intact. No focal sensory deficits - Labs CBC & Chem 7: 02/19/19 08:05 02/19/19 08:05 Labs: Abnormal Lab Results - Last 24 Hours (Table) 02/19/19 Range/Units 08:05 Sodium 136 L (137-145) mmol/L AST 14 L (17-59) U/L Assessment and Plan Assessment: Essential hypertension * Blood pressure stable and controlled * Continue current regimen Lumbar DJD Lumbar DDD Chronic pain Acute cholecystitis status post laparoscopic cholecystectomy * Patient doing well POD #1 s/p lap cholecystectomy * Defer pain management to primary recommend Tylenol or T3's Disposition * Patient is stable for discharge
--- NOTE | 2019-02-19 11:54 | P.PN ---
Subjective Progress Note Date: 02/19/19 Principal diagnosis: Acute cholecystitis Patient complains of some bloating today. He had an episode of vomiting overnight. His diet was [place] decreased to clear liquids. Says his pain is improved. He would still like to go home today. Labs are fairly normal. Objective - Vital Signs Vital signs: Vital Signs Temp 97.8 F 02/19/19 05:01 Pulse 82 02/19/19 08:30 Resp 16 02/19/19 08:30 BP 131/79 02/19/19 05:01 Pulse Ox 97 02/19/19 05:01 Intake & Output 02/18/19 02/19/19 02/19/19 18:59 06:59 18:59 Intake Total 890 1180 240 Output Total 1210 Balance -320 1180 240 Intake: IV 650 Oral 240 1180 240 Output: Urine 1200 Estimated Blood Loss 10 Other: Voiding Method Toilet Toilet Toilet # Voids 1 2 3 - Exam Abdomen: Soft, mild tenderness at incision sites, mild distention - Labs CBC & Chem 7: 02/19/19 08:05 02/19/19 08:05 Labs: Abnormal Lab Results - Last 24 Hours (Table) 02/19/19 Range/Units 08:05 Sodium 136 L (137-145) mmol/L AST 14 L (17-59) U/L Assessment and Plan (1) Cholecystitis, acute with cholelithiasis Narrative/Plan: Will increase to full liquid diet. Possible discharge later today or tomorrow. Current Visit: Yes Status: Acute Code(s): K80.00 - CALCULUS OF GALLBLADDER W ACUTE CHOLECYST W/O OBSTRUCTION SNOMED Code(s): 47358425
[2019-02-19] MEDS: METOCLOPRAMIDE 5 MG/ML 2 ML VIAL IVP SCH ×3 (14:57→23:54)
[2019-02-19] MEDS: SIMETHICONE 80 MG CHEWABLE PO SCH ×3 (15:00→22:18)
[2019-02-20] MEDS: HEPARIN SODIUM,PORCINE 5,000 UNIT/ML 1 ML VIAL SQ SCH ×2 (03:03→11:36)
[2019-02-20 05:36] VITALS: BP 145/81; PULSE 81; TEMP 97.3
[2019-02-20] MEDS: METOCLOPRAMIDE 5 MG/ML 2 ML VIAL IVP SCH ×2 (06:30→11:36)
[2019-02-20] MEDS: SODIUM CHLORIDE 0.9% 1,000 ML IV SCH (07:19)
[2019-02-20] MEDS: PIPERACILLIN-TAZOBACTAM 3.375 GM in SODIUM CHLORIDE 0.9% 100 ML IVPB SCH (08:32)
[2019-02-20] MEDS: PANTOPRAZOLE 40 MG TABLET PO SCH (08:32)
[2019-02-20] MEDS: NICOTINE 21MG/24HR PATCH TRANSDERM SCH (08:32)
[2019-02-20] MEDS: SIMETHICONE 80 MG CHEWABLE PO SCH (08:32)
--- NOTE | 2019-02-20 11:42 | P.DS ---
<Jacqueline Perez - Last Filed: 02/20/19 11:41> Providers Expected date of discharge: 02/20/19 Hospital Course: 43-year-old male who underwent laparoscopic cholecystectomy with Dr. Amaya. Patient is doing well postoperatively without any immediate competitions. He is tolerating diet without nausea or vomiting. Pain is controlled on oral medications. Vital signs have been stable. He is stable for discharge home today. Please see EMR for further hospital course details. Discharge diagnosis 1. Acute calculus cholecystitis, status post laparoscopic cholecystectomy Nurse practitioner note has been reviewed by physician. Signing provider agrees with the documented findings, assessment, and plan of care. Patient Condition at Discharge: Stable Plan - Discharge Summary Discharge Rx Participant: No New Discharge Prescriptions: New Acetaminophen-Codeine 300-30mg [Tylenol w/codeine #3] 1 tab PO Q6H PRN 3 Days #12 tablet PRN Reason: Pain No Action Ibuprofen [Motrin Ib] 400 mg PO Q6H MDD PAIN Discharge Medication List Ibuprofen [Motrin Ib] 400 mg PO Q6H MDD PAIN 02/17/19 [History] Acetaminophen-Codeine 300-30mg [Tylenol w/codeine #3] 1 tab PO Q6H PRN 3 Days #12 tablet 02/20/19 [Rx] Follow up Appointment(s)/Referral(s): Ishan Amaya MD [Medical Doctor] - 03/02/19 9:00 am Patient Instructions/Handouts: *Surgery [facility] - ([facility]) Laparoscopic Cholecystectomy, Acetaminophen/Codeine (By mouth) Discharge Disposition: HOME SELF-CARE <Ishan Amaya - Last Filed: 02/20/19 12:21> Providers Date of admission: 02/19/19 11:52 Attending physician: Ishan Amaya Consults: 02/18/19 09:02 Consult Physician Routine Consulting Provider: Bhumika Barrett Consult Reason/Comments: Medical management Do you want consulting provider notified?: Yes Primary care physician: Stated None - Discharge Diagnosis(es) (1) Cholecystitis, acute with cholelithiasis Status: Acute Hospital Course: As above. Patient discharge prior to my arrival. Will follow-up in 1 week.
== END 2019-02-20 12:15 | disposition home or self-care (01) | DRG 419 ==
LOC: EC 13:50 → 3NMEDONC 16:11 → INTOOBSV 16:11 → OBSVTOIN 02-19 11:52
PROVIDERS: ADMIT Surgery; ATTEND Surgery
PROC: 0FT44ZZ Resection of Gallbladder, Percutaneous Endoscopic Approach (ICD-10-PCS; principal; 2019-02-18 08:00)
DX: K80.00 Calculus of gallbladder with acute cholecystitis without obstruction (principal); I10 Essential (primary) hypertension; G89.29 Other chronic pain; M51.36 Other intervertebral disc degeneration, lumbar region; M47.816 Spondylosis without myelopathy or radiculopathy, lumbar region; S50.312A Abrasion of left elbow, initial encounter; S01.511A Laceration without foreign body of lip, initial encounter; S63.252A Unspecified dislocation of right middle finger, initial encounter; K52.9 Noninfective gastroenteritis and colitis, unspecified; F17.200 Nicotine dependence, unspecified, uncomplicated; Z71.6 Tobacco abuse counseling; Z79.899 Other long term (current) drug therapy; Z98.890 Other specified postprocedural states; Z86.59 Personal history of other mental and behavioral disorders; Z91.030 Bee allergy status; Z83.3 Family history of diabetes mellitus; Z80.0 Family history of malignant neoplasm of digestive organs; Z83.79 Family history of other diseases of the digestive system; Z83.49 Family history of other endocrine, nutritional and metabolic diseases; W18.30XA Fall on same level, unspecified, initial encounter
CPT/HCPCS: 36415; 76705; 80053; 81001; 82150; 83605; 83690; 84484; 85025; 88304; 93005; 96361; 96365; 96375; 99285

== ENCOUNTER 2019-05-07 17:11 | Inpatient (IN) | payer OTHER ==
[2019-05-07] MEDS ORDERED: ONDANSETRON 4 MG/2 ML VIAL IVP STA (17:40)
[2019-05-07] MEDS ORDERED: SODIUM CHLORIDE 0.9% 1,000 ML IV STA (17:40)
[2019-05-07] MEDS ORDERED: MORPHINE SULFATE 4 MG/ML SYRINGE IV STA (17:40)
[2019-05-07] MEDS ORDERED: PANTOPRAZOLE 40 MG/10 ML VIAL IVP STA (17:40)
--- NOTE | 2019-05-07 18:33 | ED ---
Abdominal Pain HPI - General Chief Complaint: Abdominal Pain Stated Complaint: abd pain Time Seen by Provider: 05/07/19 17:25 Source: patient Mode of arrival: ambulatory Limitations: no limitations - History of Present Illness Initial Comments: Patient is a 43-year-old male presenting to the emergency Department with complaints of abdominal pain that has been increasing over the past 2 months. Patient is also been having vomiting with this abdominal pain. Patient has recent history of colitis as well as a cholecystectomy by Dr. Amaya 3 months ago. Patient did have follow-up 2 weeks after surgery and everything was normal. Patient said states since his surgery has been having intermittent abdominal pain however the last 2 days his pain has intensified. Patient is complaining of areas of hardness on the right side of his stomach as well as of vomiting. He also feels like he has slightly distended. He denies fever, diarrhea. He does have intermittent constipation. Patient states it has been at least 2-3 days from his last bowel movement. He denies chest pain, shortness of breath. He has no other complaints at this time. Upon arrival to the ER his vitals are stable. - Related Data Home Medications Medication Instructions Recorded Confirmed Ibuprofen [Motrin Ib] 400 mg PO Q6H MDD PAIN 02/17/19 02/17/19 Previous Rx's Medication Instructions Recorded Acetaminophen-Codeine 300-30mg 1 tab PO Q6H PRN 3 Days #12 tablet 02/20/19 [Tylenol w/codeine #3] Allergies Allergy/AdvReac Type Severity Reaction Status Date / Time bee venom protein (honey bee) Allergy Anaphylaxis Verified 05/07/19 17:16 Review of Systems ROS Statement: Those systems with pertinent positive or pertinent negative responses have been documented in the HPI. ROS Other: All systems not noted in ROS Statement are negative. Past Medical History Past Medical History: Hypertension Additional Past Medical History / Comment(s): chronic back pain, colitis History of Any Multi-Drug Resistant Organisms: None Reported Past Surgical History: Adenoidectomy, Cholecystectomy Past Psychological History: Anxiety, Bipolar Smoking Status: Current every day smoker Past Alcohol Use History: Occasional Past Drug Use History: None Reported - Past Family History Father Family Medical History: Diabetes Mellitus Additional Family Medical History / Comment(s): First cousin has been diagnosed with Chrons, Great Uncle had colon cancer. Mother Family Medical History: Thyroid Disorder General Exam - General Exam Comments Initial Comments: GENERAL: Well-appearing, well-nourished and in no acute distress, although looks uncomfortable. HEAD: Atraumatic, normocephalic. EYES: Pupils equal round and reactive to light, extraocular movements intact, sclera anicteric, conjunctiva are normal. ENT: TMs normal, nares patent, oropharynx clear without exudates. Moist mucous membranes. NECK: Normal range of motion, supple without lymphadenopathy or JVD. LUNGS: Breath sounds clear to auscultation bilaterally and equal. No wheezes rales or rhonchi. HEART: Regular rate and rhythm without murmurs, rubs or gallops. ABDOMEN: Patient has severe tenderness with palpation all around the abdomen, increased on the right side of the abdomen. Some hardness on the right side of the abdomen, rest of abdomen is soft. Hypoactive bowel sounds. Positive guarding. EXTREMITIES: Normal range of motion, no pitting or edema. No clubbing or cyanosis. Pulses equal in bilateral lower extremities. NEUROLOGICAL: Normal speech, normal gait. PSYCH: Normal mood, normal affect. SKIN: Warm, Dry, normal turgor, no rashes or lesions noted. Limitations: no limitations Course Vital Signs 05/07/19 17:15 Temperature 97.6 F Pulse Rate 104 H Respiratory 18 Rate Blood Pressure 146/80 O2 Sat by Pulse 98 Oximetry Medical Decision Making - Medical Decision Making Patient is a 43-year-old male presenting with acute onset abdominal pain and vomiting. He has recent history of colitis and a cholecystectomy by Dr. Amaya 3 months ago. Vitals are stable upon arrival. Patient has leukocytosis at 14.0, rest of labs are normal. Lactic acid is 1.3. Urine shows 2+ ketones otherwise normal. CT of the abdomen and pelvis was obtained and shows a constricting lesion in the ascending colon suspicious for primary colon cancer. There is moderate mechanical traction of the ascending colon and the small bowel with dilated loops measuring up to 4 cm. No other abnormalities. Patient was given fluids, Zofran and pain control. He reports some improvement in pain. I discu ssed case with Dr. Nugent. Patient will be admitted under Dr. Epps with consult to surgery, Dr. Appiah. Patient is agreeable with this plan of care. His vitals remained stable. - Lab Data Result diagrams: 05/07/19 18:07 05/07/19 18:07 Lab Results 05/07/19 05/07/19 05/07/19 Range/Units 18:07 18:07 18:07 WBC 14.0 H (3.8-10.6) k/uL RBC 4.84 (4.30-5.90) m/uL Hgb 14.1 (13.0-17.5) gm/dL Hct 44.2 (39.0-53.0) % MCV 91.2 (80.0-100.0) fL MCH 29.1 (25.0-35.0) pg MCHC 31.9 (31.0-37.0) g/dL RDW 13.1 (11.5-15.5) % Plt Count 414 (150-450) k/uL Neutrophils % 87 % Lymphocytes % 6 % Monocytes % 5 % Eosinophils % 1 % Basophils % 1 % Neutrophils # 12.1 H (1.3-7.7) k/uL Lymphocytes # 0.8 L (1.0-4.8) k/uL Monocytes # 0.7 (0-1.0) k/uL Eosinophils # 0.1 (0-0.7) k/uL Basophils # 0.2 (0-0.2) k/uL PT (9.0-12.0) sec INR (<1.2) APTT (22.0-30.0) sec Sodium 138 (137-145) mmol/L Potassium 4.5 (3.5-5.1) mmol/L Chloride 102 (98-107) mmol/L Carbon Dioxide 28 (22-30) mmol/L Anion Gap 8 mmol/L BUN 15 (9-20) mg/dL Creatinine 0.78 (0.66-1.25) mg/dL Est GFR (CKD-EPI)AfAm >90 (>60 ml/min/1.73 sqM) Est GFR (CKD-EPI)NonAf >90 (>60 ml/min/1.73 sqM) Glucose 113 H (74-99) mg/dL Plasma Lactic Acid [place] 1.3 (0.7-2.0) mmol/L Calcium 10.1 (8.4-10.2) mg/dL Total Bilirubin 1.1 (0.2-1.3) mg/dL AST 19 (17-59) U/L ALT 15 (4-49) U/L Alkaline Phosphatase 108 (38-126) U/L Total Protein 8.3 H (6.3-8.2) g/dL Albumin 4.7 (3.5-5.0) g/dL Amylase 40 (30-110) U/L Lipase 30 (23-300) U/L Urine Color Urine Appearance (Clear) Urine pH (5.0-8.0) Ur Specific [place] (1.001-1.035) Urine Protein (Negative) Urine Glucose (UA) (Negative) Urine Ketones (Negative) Urine Blood (Negative) Urine Nitrite (Negative) Urine Bilirubin (Negative) Urine Urobilinogen (<2.0) mg/dL Ur Leukocyte Esterase (Negative) Urine RBC (0-5) /hpf Urine WBC (0-5) /hpf Ur Squamous Epith Cells (0-4) /hpf Hyaline Casts (0-2) /lpf Urine Mucus (None) /hpf 05/07/19 05/07/19 Range/Units 18:07 18:07 WBC (3.8-10.6) k/uL RBC (4.30-5.90) m/uL Hgb (13.0-17.5) gm/dL Hct (39.0-53.0) % MCV (80.0-100.0) fL MCH (25.0-35.0) pg MCHC (31.0-37.0) g/dL RDW (11.5-15.5) % Plt Count (150-450) k/uL Neutrophils % % Lymphocytes % % Monocytes % % Eosinophils % % Basophils % % Neutrophils # (1.3-7.7) k/uL Lymphocytes # (1.0-4.8) k/uL Monocytes # (0-1.0) k/uL Eosinophils # (0-0.7) k/uL Basophils # (0-0.2) k/uL PT 9.9 (9.0-12.0) sec INR 1.0 (<1.2) APTT 22.8 (22.0-30.0) sec Sodium (137-145) mmol/L Potassium (3.5-5.1) mmol/L Chloride (98-107) mmol/L Carbon Dioxide (22-30) mmol/L Anion Gap mmol/L BUN (9-20) mg/dL Creatinine (0.66-1.25) mg/dL Est GFR (CKD-EPI)AfAm (>60 ml/min/1.73 sqM) Est GFR (CKD-EPI)NonAf (>60 ml/min/1.73 sqM) Glucose (74-99) mg/dL Plasma Lactic Acid [place] (0.7-2.0) mmol/L Calcium (8.4-10.2) mg/dL Total Bilirubin (0.2-1.3) mg/dL AST (17-59) U/L ALT (4-49) U/L Alkaline Phosphatase (38-126) U/L Total Protein (6.3-8.2) g/dL Albumin (3.5-5.0) g/dL Amylase (30-110) U/L Lipase (23-300) U/L Urine Color Yellow Urine Appearance Clear (Clear) Urine pH 5.5 (5.0-8.0) Ur Specific [place] 1.030 (1.001-1.035) Urine Protein 1+ H (Negative) Urine Glucose (UA) Negative (Negative) Urine Ketones 2+ H (Negative) Urine Blood Negative (Negative) Urine Nitrite Negative (Negative) Urine Bilirubin Negative (Negative) Urine Urobilinogen 3.0 (<2.0) mg/dL Ur Leukocyte Esterase Negative (Negative) Urine RBC 1 (0-5) /hpf Urine WBC 2 (0-5) /hpf Ur Squamous Epith Cells <1 (0-4) /hpf Hyaline Casts 10 H (0-2) /lpf Urine Mucus Many H (None) /hpf Disposition Clinical Impression: Small bowel obstruction, Abdominal pain Disposition: ADMITTED IP TO THIS [facility] Condition: Stable Is patient prescribed a controlled substance at d/c from ED?: No Referrals: None,Stated [Primary Care Provider] - 1-2 days Decision Date: 05/07/19 Decision Time: 19:27
[2019-05-07 18:45] LABS: ALT 15 U/L (4-49); AST 19 U/L (17-59); African American GFR (CKD) >90 (>60 ml/min/1.73 sqM); Albumin 4.7 g/dL (3.5-5.0); Alkaline Phosphatase 108 U/L (38-126); Amylase 40 U/L (30-110); Anion Gap 8 mmol/L; Basophils # (A) 0.2 k/uL (0-0.2); Basophils % (A) 1 %; Blood Urea Nitrogen 15 mg/dL (9-20); Calcium 10.1 mg/dL (8.4-10.2); Carbon Dioxide 28 mmol/L (22-30); Chloride 102 mmol/L (98-107); Eosinophils # (A) 0.1 k/uL (0-0.7); Eosinophils % (A) 1 %; Glucose 113 mg/dL (74-99); HCT 44.2 % (39.0-53.0); HGB 14.1 gm/dL (13.0-17.5); Lymphocytes # (A) 0.8 k/uL (1.0-4.8); Lymphocytes % (A) 6 %; MCH 29.1 pg (25.0-35.0); MCHC 31.9 g/dL (31.0-37.0); MCV 91.2 fL (80.0-100.0); Mean Platelet Volume 8.6; Monocytes # (A) 0.7 k/uL (0-1.0); Monocytes % (A) 5 %; Neutrophils # (A) 12.1 k/uL (1.3-7.7); Neutrophils % (A) 87 %; Non-African American GFR(CKD) >90 (>60 ml/min/1.73 sqM); Platelet Count 414 k/uL (150-450); Potassium 4.5 mmol/L (3.5-5.1); RBC 4.84 m/uL (4.30-5.90); RDW 13.1 % (11.5-15.5); Sodium 138 mmol/L (137-145); Total Bilirubin 1.1 mg/dL (0.2-1.3); Total Protein 8.3 g/dL (6.3-8.2)
[2019-05-07 18:53] LABS: Appearance,Urine Clear (Clear); Bilirubin,Urine Negative (Negative); Blood,Urine Negative (Negative); Color,Urine Yellow; Glucose,Urine (UA) Negative (Negative); Hyaline Casts,Urine 10 /lpf (0-2); Ketones,Urine 2+ (Negative); Leukocyte Esterase,Urine Negative (Negative); Mucus,Urine Many /hpf; Nitrite,Urine Negative (Negative); PH, Urine 5.5 (5.0-8.0); Protein,Urine 1+ (Negative); RBC,Urine 1 /hpf (0-5); Squamous Epithelial Cell,Urine <1 /hpf (0-4); WBC,Urine 2 /hpf (0-5)
[2019-05-07 18:55] LABS: Partial Thromboplastin Time 22.8 sec (22.0-30.0); Prothrombin Time 9.9 sec (9.0-12.0)
[2019-05-07] MEDS ORDERED: HYDROmorphone 1 MG/ML 1 ML SYRINGE IVP STA (18:59)
--- NOTE | 2019-05-07 19:08 | CT ---
EXAMINATION TYPE: CT abdomen pelvis w con DATE OF EXAM: 05/07/2019 COMPARISON: 02/15/2019 HISTORY: Abdominal pain. Hx of intestinal infection, ruby. CT DLP: 1233.7 mGycm Automated exposure control for dose reduction was used. CONTRAST: Performed with IV Contrast, patient injected with 100 mL of Isovue 300. Multiple axial sections were obtained from the diaphragm to the floor the pelvis with intravenous con trast. Lung bases are clear. There is no pleural effusion. Heart size is normal. There are numerous cysts in the liver that measure up to 1.5 cm. The bile ducts are not dilated. Sple en is intact. There is no pancreatic mass. Stomach is distended. There are clips from cholecystectomy. There is 1.5 cm rounded right adrenal mass. Kidneys show satisfactory contrast opacification. There i s no hydronephrosis. Ureters are not dilated. There is no retroperitoneal adenopathy. Bladder distend s smoothly. Delayed images show normal renal excretion. There is no inguinal hernia. There is no free fluid in the pelvis. There are multiple dilated fluid-filled loops of small bowel throughout the abdomen. There is a const ricting lesion evident in the ascending colon near the hepatic flexure. This is best seen on the sagi ttal image 43. The remainder of the large bowel appears fairly normal. Left: And transverse colon are essentially em pty. There is no ascites. There is no free air.. The lumbar spine is intact. There is no compression fract ure. Bony pelvis is intact. There is fluid-filled appendix that appears normal. IMPRESSION: Constricting lesion in the ascending colon suspicious for primary colon cancer. There is moderate mec hanical obstruction of the ascending colon and the small bowel with dilated fluid-filled loops of sma ll bowel that measure up to 4 cm. Obstruction is new compared to last exam. There is stable nodular density of the right adrenal gland. Numerous hepatic cysts. No dilated ducts.
[2019-05-07] MEDS ORDERED: ACETAMINOPHEN TAB 325 MG TAB PO PRN (19:24)
[2019-05-07] MEDS ORDERED: NALOXONE 0.4 MG/ML 1 ML VIAL IV PRN (19:24)
[2019-05-07] MEDS: SODIUM CHLORIDE 0.9% 1,000 ML IV SCH (20:34)
[2019-05-07] MEDS: HYDROmorphone 1 MG/ML 1 ML SYRINGE IVP PRN (21:53)
[2019-05-08] MEDS: HYDROmorphone 1 MG/ML 1 ML SYRINGE IVP PRN ×4 (01:03→20:20)
[2019-05-08] MEDS: NICOTINE 21MG/24HR PATCH TRANSDERM SCH ×2 (07:26→08:36)
[2019-05-08] MEDS: SODIUM CHLORIDE 0.9% 1,000 ML IV SCH ×2 (09:01→22:40)
[2019-05-08] MEDS ORDERED: PEG 3350-NA SULF,BICARB,CL/KCL 4,000 ML BOTTLE PO ONE (10:23)
--- NOTE | 2019-05-08 11:06 | P.GSCN ---
<Jacqueline Perez - Last Filed: 05/08/19 11:01> History of Present Illness Consult date: 05/08/19 Reason for Consult: Mechanical bowel obstruction Requesting physician: Brit Mason History of present illness: CHIEF COMPLAINT: Abdominal pain HISTORY OF PRESENT ILLNESS: 43-year-old male who presented to emergency room with chief complaint of abdominal pain. Patient was hospitalized in January 2019 with colitis. Patient also underwent a laparoscopic cholecystectomy in [address] Amaya. Patient states since that time he has been having issues with constipation. He reports going to 3 days between bowel movements. He reports he has been having right lower quadrant abdominal discomfort, bloating, and back pain. Patient reports having a liquid bowel movement this morning and says his discomfort and abdominal bloating have resolved at the time of my examination. Patient denies previous colonoscopy. PAST MEDICAL HISTORY: See list. PAST SURGICAL HISTORY: See list. SOCIAL HISTORY: No illicit drug use. REVIEW OF SYSTEMS: CONSTITUTIONAL: Denies fever or chills. HEENT: Denies blurred vision, vision changes, or eye pain. Denies hemoptysis CARDIOVASCULAR: Denies chest pain or pressure. RESPIRATORY: No shortness of breath. GASTROINTESTINAL: Refer to HPI for pertinent findings HEMATOLOGIC: Denies bleeding disorders. GENITOURINARY: Denies any blood in urine. SKIN: Denies pruitis. Denies rash. PHYSICAL EXAM: VITAL SIGNS: Reviewed. GENERAL: Well-developed in no acute distress. HEENT: No sclera icterus. Extraocular movements grossly intact. Moist buccal mucosa. Head is atraumatic, normocephalic. ABDOMEN: Soft. Nondistended. Nontender. NEUROLOGIC: Alert and oriented. Cranial nerves II through XII grossly intact. LABORATORY DATA: WBC 14.0. Hemoglobin 14.1. Platelet count 414. Sodium 130. Potassium 4.5. BUN 15. Creatinine 0.78. Lactic acid 1.3. IMAGING: CT abdomen and pelvis: Constricting lesion in the ascending colon suspicious for primary colon cancer. Moderate mechanical obstruction of the descending colon and small bowel with dilated loops of small bowel that measure up to 4 cm. ASSESSMENT: 1. Abdominal pain 2. Constipation x 3 months 3. Colon mass of ascending colon 4. History of colitis, January 2019 5. History of lap ruby, January 2019 PLAN: Clear liquid diet as tolerated today NPO at midnight [facility] bowel prep Colonoscopy scheduled tomorrow with Dr. Amaya Nurse practitioner note has been reviewed by physician. Signing provider agrees with the documented findings, assessment, and plan of care. Past Medical History Past Medical History: Hypertension Additional Past Medical History / Comment(s): chronic back pain, colitis History of Any Multi-Drug Resistant Organisms: None Reported Past Surgical History: Adenoidectomy, Cholecystectomy Past Psychological History: Anxiety, Bipolar Smoking Status: Current every day smoker Past Alcohol Use History: Occasional Past Drug Use History: None Reported - Past Family History Father Family Medical History: Diabetes Mellitus Additional Family Medical History / Comment(s): First cousin has been diagnosed with Chrons, Great Uncle had colon cancer. Mother Family Medical History: Thyroid Disorder Medications and Allergies Home Medications Medication Instructions Recorded Confirmed Type Ibuprofen [Motrin Ib] 400 mg PO Q6H PRN 02/17/19 05/08/19 History Allergies Allergy/AdvReac Type Severity Reaction Status Date / Time bee venom protein (honey bee) Allergy Anaphylaxis Verified 05/08/19 09:57 Surgical - Exam Vital Signs Temp Pulse Resp BP Pulse Ox 97.6 F 104 H 18 146/80 98 05/07/19 17:15 05/07/19 17:15 05/07/19 17:15 05/07/19 17:15 05/07/19 17:15 Results - Labs 05/07/19 18:07 05/07/19 18:07 Abnormal Lab Results - Last 24 Hours (Table) 05/07/19 05/07/19 05/07/19 Range/Units 18:07 18:07 18:07 WBC 14.0 H (3.8-10.6) k/uL Neutrophils # 12.1 H (1.3-7.7) k/uL Lymphocytes # 0.8 L (1.0-4.8) k/uL Glucose 113 H (74-99) mg/dL Total Protein 8.3 H (6.3-8.2) g/dL Urine Protein 1+ H (Negative) Urine Ketones 2+ H (Negative) Hyaline Casts 10 H (0-2) /lpf Urine Mucus Many H (None) /hpf Diabetes panel 05/07/19 Range/Units 18:07 Sodium 138 (137-145) mmol/L Potassium 4.5 (3.5-5.1) mmol/L Chloride 102 (98-107) mmol/L Carbon Dioxide 28 (22-30) mmol/L BUN 15 (9-20) mg/dL Creatinine 0.78 (0.66-1.25) mg/dL Glucose 113 H (74-99) mg/dL Calcium 10.1 (8.4-10.2) mg/dL AST 19 (17-59) U/L ALT 15 (4-49) U/L Alkaline Phosphatase 108 (38-126) U/L Total Protein 8.3 H (6.3-8.2) g/dL Albumin 4.7 (3.5-5.0) g/dL Calcium panel 05/07/19 Range/Units 18:07 Calcium 10.1 (8.4-10.2) mg/dL Albumin 4.7 (3.5-5.0) g/dL Pituitary panel 05/07/19 Range/Units 18:07 Sodium 138 (137-145) mmol/L Potassium 4.5 (3.5-5.1) mmol/L Chloride 102 (98-107) mmol/L Carbon Dioxide 28 (22-30) mmol/L BUN 15 (9-20) mg/dL Creatinine 0.78 (0.66-1.25) mg/dL Glucose 113 H (74-99) mg/dL Calcium 10.1 (8.4-10.2) mg/dL Adrenal panel 05/07/19 Range/Units 18:07 Sodium 138 (137-145) mmol/L Potassium 4.5 (3.5-5.1) mmol/L Chloride 102 (98-107) mmol/L Carbon Dioxide 28 (22-30) mmol/L BUN 15 (9-20) mg/dL Creatinine 0.78 (0.66-1.25) mg/dL Glucose 113 H (74-99) mg/dL Calcium 10.1 (8.4-10.2) mg/dL Total Bilirubin 1.1 (0.2-1.3) mg/dL AST 19 (17-59) U/L ALT 15 (4-49) U/L Alkaline Phosphatase 108 (38-126) U/L Total Protein 8.3 H (6.3-8.2) g/dL Albumin 4.7 (3.5-5.0) g/dL <Ishan Amaya - Last Filed: 05/08/19 16:37> History of Present Illness History of present illness: As above. Patient well-known to our service. Started having episodes of right lower abdominal pain and fullness approximately 4-6 weeks ago. States he did feel better for the first month or so after cholecystectomy. CAT scan findings discussed in detail with the patient and his mother who is present at the bedside. Looked at all 3 CAT scans with radiologist. Suspect stricture distal ascending colon near the hepatic flexure resulting in partial colonic obstruction. Neoplastic nature of the stricture discussed with family as a probable finding. Options at this time reviewed in detail. Possibility of synchronous lesions reviewed. Patient did have an episode of vomiting today however states he had about 2 L of liquid stools and feels quite well currently. He believes that he would tolerate a slow bowel prep. Will resume GoLYTELY at this time. If vomiting or pain develop will cancel those plans. Tentatively plan colonoscopy tomorrow. Subsequent colonic resection discussed as a probability. Will check CEA level tomorrow morning. All questions answered. Surgical - Exam Vital Signs Temp Pulse Resp BP Pulse Ox 97.6 F 104 H 18 146/80 98 05/07/19 17:15 05/07/19 17:15 05/07/19 17:15 05/07/19 17:15 05/07/19 17:15 Results - Labs 05/07/19 18:07 05/07/19 18:07 Abnormal Lab Results - Last 24 Hours (Table) 05/07/19 05/07/19 05/07/19 Range/Units 18:07 18:07 18:07 WBC 14.0 H (3.8-10.6) k/uL Neutrophils # 12.1 H (1.3-7.7) k/uL Lymphocytes # 0.8 L (1.0-4.8) k/uL Glucose 113 H (74-99) mg/dL Total Protein 8.3 H (6.3-8.2) g/dL Urine Protein 1+ H (Negative) Urine Ketones 2+ H (Negative) Hyaline Casts 10 H (0-2) /lpf Urine Mucus Many H (None) /hpf Diabetes panel 05/07/19 Range/Units 18:07 Sodium 138 (137-145) mmol/L Potassium 4.5 (3.5-5.1) mmol/L Chloride 102 (98-107) mmol/L Carbon Dioxide 28 (22-30) mmol/L BUN 15 (9-20) mg/dL Creatinine 0.78 (0.66-1.25) mg/dL Glucose 113 H (74-99) mg/dL Calcium 10.1 (8.4-10.2) mg/dL AST 19 (17-59) U/L ALT 15 (4-49) U/L Alkaline Phosphatase 108 (38-126) U/L Total Protein 8.3 H (6.3-8.2) g/dL Albumin 4.7 (3.5-5.0) g/dL Calcium panel 05/07/19 Range/Units 18:07 Calcium 10.1 (8.4-10.2) mg/dL Albumin 4.7 (3.5-5.0) g/dL Pituitary panel 05/07/19 Range/Units 18:07 Sodium 138 (137-145) mmol/L Potassium 4.5 (3.5-5.1) mmol/L Chloride 102 (98-107) mmol/L Carbon Dioxide 28 (22-30) mmol/L BUN 15 (9-20) mg/dL Creatinine 0.78 (0.66-1.25) mg/dL Glucose 113 H (74-99) mg/dL Calcium 10.1 (8.4-10.2) mg/dL Adrenal panel 05/07/19 Range/Units 18:07 Sodium 138 (137-145) mmol/L Potassium 4.5 (3.5-5.1) mmol/L Chloride 102 (98-107) mmol/L Carbon Dioxide 28 (22-30) mmol/L BUN 15 (9-20) mg/dL Creatinine 0.78 (0.66-1.25) mg/dL Glucose 113 H (74-99) mg/dL Calcium 10.1 (8.4-10.2) mg/dL Total Bilirubin 1.1 (0.2-1.3) mg/dL AST 19 (17-59) U/L ALT 15 (4-49) U/L Alkaline Phosphatase 108 (38-126) U/L Total Protein 8.3 H (6.3-8.2) g/dL Albumin 4.7 (3.5-5.0) g/dL
[2019-05-08] MEDS: ONDANSETRON 4 MG/2 ML VIAL IVP PRN (11:59)
[2019-05-08] MEDS: HYDROmorphone 0.5 MG/0.5 ML SYRINGE IVP PRN (16:07)
[2019-05-08] MEDS: HEPARIN SODIUM,PORCINE 5,000 UNIT/ML 1 ML VIAL SQ SCH ×2 (16:08→20:19)
--- NOTE | 2019-05-08 19:04 | HP ---
HISTORY AND PHYSICAL DATE OF SERVICE: 05/08/2019. CHIEF COMPLAINT: Abdominal pain. HISTORY OF PRESENT ILLNESS: This 43-year-old gentleman with a past medical history of hypertension, history of chronic back pain, history of colitis, history of anxiety, bipolar, not being followed by any primary physician in the outpatient setting, was noted to have abdominal pain. The patient had on and off abdominal discomfort for the last 2 months which was increasing. Patient had some vomiting also. The patient had periodic constipation which relieved automatically later. The patient had a cholecystectomy by Dr. Amaya over 3 months ago. Because of increased symptoms, the patient came to [facility] and was admitted for further evaluation and treatment. The patient underwent CT scan of the abdomen and pelvis which showed evidence of possible colonic obstruction with a constricting lesion in the ascending colon suspicious for primary colon cancer. Moderate mechanical obstruction was noted. The patient was admitted for evaluation and treatment. Colonoscopy for further evaluation is being planned at this time. There is no history of any fever, rigor or chills. No history of headache, loss of consciousness, seizures. PAST MEDICAL HISTORY: History of hypertension, history of chronic back pain, history of colitis, adenoidectomy, cholecystectomy, anxiety, bipolar. MEDICATIONS: Motrin 400 mg q.6 p.r.n. ALLERGIES: BEE VENOM. FAMILY HISTORY: History of diabetes mellitus and first cousin with Crohn's. Great uncle had colon cancer. SOCIAL HISTORY: History of smoking on a daily basis. No history of alcohol intake. REVIEW OF SYSTEMS: ENT: No diminished hearing. No diminished vision. CARDIOVASCULAR SYSTEM: No angina, palpitations. RESPIRATORY SYSTEM: As mentioned earlier. GI: As mentioned earlier. : No dysuria or retention. NERVOUS SYSTEM: No numbness, weakness. ALLERGY/IMMUNOLOGY: No asthma, hayfever. MUSCULOSKELETAL: As mentioned earlier. HEMATOLOGY/ONCOLOGY: As mentioned earlier. ENDOCRINE: No history of diabetes, hypothyroidism. CONSTITUTIONAL: As mentioned earlier. DERMATOLOGY: Negative. RHEUMATOLOGY: Negative. PSYCHIATRY: As mentioned earlier. PHYSICAL EXAMINATION: Patient alert and oriented x3. Pulse 72, blood pressure 132/73, respiration 16, temperature 97.9, pulse ox 97% on room air. HEENT: Conjunctivae normal. Oral mucosa moist. NECK: No jugular venous distention. No carotid bruit. No lymph node enlargement. CARDIOVASCULAR SYSTEM: S1, S2 muffled. RESPIRATORY SYSTEM: Breath sounds diminished at the bases. No rhonchi. No crackles. ABDOMEN: Soft. Mild diffuse distention. Mild diffuse discomfort to palpation. No guarding. No rigidity. No mass palpable. LEGS: No edema. No swelling. NERVOUS SYSTEM: Higher functions as mentioned earlier. Moves all 4 limbs. No focal motor or sensory deficit. LYMPHATICS: No lymph node palpable in neck, axillae or groin. SKIN: No ulcer, rash, bleeding. JOINTS: No active deforming arthropathy. LABS: WBC 14, hemoglobin 14.1. Sodium 138, potassium 4.5. ASSESSMENT: 1. Abdominal pain and vomiting; possibly acute bowel obstruction. Rule out constricting lesions in the ascending colon with possible colon cancer. 2. Increased white count, possibly reactive. 3. Positive ketones in the urine. 4. History of recent cholecystectomy. 5. Hypertension. 6. Chronic back pain. 7. History of colitis. 8. History of cholecystectomy and adenoidectomy. 9. History of anxiety, bipolar. 10.History of continued ongoing nicotine dependence. RECOMMENDATIONS AND DISCUSSION: In this 43-year-old gentleman who presented with multiple complex medical issues, we will monitor the patient closely, continue the current medications, continue symptomatic treatment. Abdominal CT scan was reviewed. Surgery has seen the patient and recommended a colonoscopy after GoLYTELY preparation. Will continue the rest of medications. DVT prophylaxis. Incentive spirometry. Habitrol. Guarded prognosis because of multiple complex medical issues. Further recommendations to follow. I recommend the patient follow up with a primary physician closely after discharge. See orders for details. Discussed with the family at the bedside. MMODL / IJN: [id number] /
[2019-05-09] MEDS ORDERED: SODIUM CHLORIDE 0.9% 1,000 ML IV ONE (05:56)
[2019-05-09] MEDS ORDERED: SODIUM CHLORIDE 0.9% 100 ML with ceFAZolin 2,000 MG IV ONE ×2 (06:00)
[2019-05-09 07:55] LABS: African American GFR (CKD) >90 (>60 ml/min/1.73 sqM); Anion Gap 7 mmol/L; Blood Urea Nitrogen 12 mg/dL (9-20); Calcium 8.3 mg/dL (8.4-10.2); Carbon Dioxide 24 mmol/L (22-30); Chloride 104 mmol/L (98-107); Glucose 80 mg/dL (74-99); Non-African American GFR(CKD) >90 (>60 ml/min/1.73 sqM); Potassium 4.1 mmol/L (3.5-5.1); Sodium 135 mmol/L (137-145)
[2019-05-09 08:13] LABS: Basophils # (A) 0.1 k/uL (0-0.2); Basophils % (A) 1 %; Eosinophils # (A) 0.1 k/uL (0-0.7); Eosinophils % (A) 3 %; HCT 36.2 % (39.0-53.0); HGB 11.6 gm/dL (13.0-17.5); Lymphocytes # (A) 1.1 k/uL (1.0-4.8); Lymphocytes % (A) 22 %; MCH 29.5 pg (25.0-35.0); MCHC 32.1 g/dL (31.0-37.0); MCV 92.1 fL (80.0-100.0); Mean Platelet Volume 8.8; Monocytes # (A) 0.4 k/uL (0-1.0); Monocytes % (A) 7 %; Neutrophils # (A) 3.3 k/uL (1.3-7.7); Neutrophils % (A) 66 %; Platelet Count 327 k/uL (150-450); RBC 3.93 m/uL (4.30-5.90); RDW 12.9 % (11.5-15.5); WBC 5.1 k/uL (3.8-10.6)
[2019-05-09] MEDS ORDERED: LACTATED RINGERS 1,000 ML IV ONE ×11 (08:34)
[2019-05-09] MEDS: PANTOPRAZOLE 40 MG TABLET PO SCH (09:02)
[2019-05-09] MEDS: HEPARIN SODIUM,PORCINE 5,000 UNIT/ML 1 ML VIAL SQ SCH ×2 (10:09→18:40)
[2019-05-09] MEDS: NICOTINE 21MG/24HR PATCH TRANSDERM SCH (10:09)
--- NOTE | 2019-05-09 10:25 | FL ---
EXAMINATION TYPE: FL barium enema DATE OF EXAM: 05/09/2019 COMPARISON: CT abdomen pelvis dated 05/07/2019 HISTORY: Colonic obstruction. History of colitis. TECHNIQUE: A single contrast barium enema study is performed. 1 minute and 54 seconds of fluoroscopy time of was utilized. 54 fluoroscopic images were saved. FINDINGS: [employer] Operator Chief view of the abdomen shows overall non-obstructive bowel gas pattern. Retrograde filling of the sigmoid colon, descending colon, splenic flexure, and proximal transverse c olon are unremarkable. However there is focal narrowing and thickened haustra of the hepatic flexure corresponding to the area of bowel wall thickening and luminal narrowing seen on the CT of 05/17/2019 . The patient experienced large amount of pain at this location and no contrast was able to be passed into the descending colon or cecum. Postevacuation images also demonstrate abnormal haustration in s egment spanning proximally 7.5 cm of the hepatic flexure. No significant diverticular disease is note d. IMPRESSION: Ulcerating obstructive hepatic flexure lesion measuring approximately 7.5 cm concerning for neoplasm. Severe colitis is also a possibility. Note the exam was terminated due to severe patien t pain after contrast reached the abnormality.
--- NOTE | 2019-05-09 12:26 | P.PN ---
Progress Note - Text Progress Note Date: 05/09/19 Patient was unable to tolerate more then one half glass of PEG last night. He had some abdominal cramps and nausea. Bowel prep was canceled at that point. Instead a unprepped barium enema was scheduled for this morning. I spoke to the radiologist that perform the procedure. These findings were relayed to the patient and his family. A single obstructive lesion was identified at the anticipated location hepatic flexure. No synchronous lesions identified distally. Patient did have some discomfort during the procedure but feels well after decompression. Denies nausea or vomiting or pain currently. Plan at this point is to proceed with right colectomy. Likely will be able to proceed with re-anastomosis at this time. Potential for and ileostomy was reviewed however. Risks of the procedure were described and noted to include but are not limited to bleeding, infection, scarring, leak, abscess, duodenal and ureteral injury, hernia, recurrent malignancy, anesthesia related complications, ileus. They understand and wish to proceed.
[2019-05-09] MEDS: SODIUM CHLORIDE 0.9% 1,000 ML IV SCH (17:26)
--- NOTE | 2019-05-09 21:53 | PN ---
PROGRESS NOTE DATE OF SERVICE: 05/09/2019 This 43-year-old gentleman admitted with abdominal discomfort as well as possible bowel obstruction had a barium enema today which showed ulcerating obstructive lesion in the hepatic flexure measuring approximately 7.5 cm; considering neoplasm. Dr. Amaya has seen the patient to evaluate the patient for possible surgery. No chest pain. No palpitations. No fever. PHYSICAL EXAMINATION: Patient alert and oriented x3. Pulse is 77, blood pressure 146/73, respirations 16, temperature 98.1, pulse ox 98% on room air. HEENT: Conjunctivae normal. NECK: No jugular venous distention. CARDIOVASCULAR SYSTEM: S1, S2 muffled. RESPIRATORY SYSTEM: Breath sounds diminished at the bases. No rhonchi. No crackles. ABDOMEN: Soft. Mild diffuse discomfort. LEGS: No edema. No swelling. NERVOUS SYSTEM: No focal deficit. LABS: WBC 5.1, hemoglobin 11.6. ASSESSMENT: 1. Abdominal pain and vomiting; possibly acute bowel obstruction secondary to constricting lesion in the ascending colon and hepatic flexure with possible colon cancer. 2. Increased white count, possibly reactive. 3. Positive ketones in the urine at the time of admission. 4. History of recent cholecystectomy. 5. Hypertension. 6. History of chronic back pain. 7. History of colitis. 8. History of cholecystectomy and adenoidectomy. 9. History of anxiety, bipolar. 10.History of continued ongoing nicotine dependence. RECOMMENDATIONS AND DISCUSSION: I recommend to continue current medications, continue with the monitoring, symptomatic treatment. Closely follow with Dr. Amaya. Possible surgery. Guarded prognosis because of multiple complex medical issues. Further recommendations to follow. MMODL / IJN: [id number] /
[2019-05-10] MEDS: SODIUM CHLORIDE 0.9% 1,000 ML IV SCH ×2 (04:41→05:00)
[2019-05-10] MEDS ORDERED: ONDANSETRON 4 MG/2 ML VIAL ONE (05:56)
[2019-05-10] MEDS ORDERED: GLYCOPYRROLATE 0.2 MG/ML 2 ML VIAL ONE (05:56)
[2019-05-10] MEDS ORDERED: MIDAZOLAM 2 MG/2 ML VIAL ONE (05:56)
[2019-05-10] MEDS ORDERED: NEOSTIGMINE 1 MG/ML 10 ML VIAL ONE (05:56)
[2019-05-10] MEDS ORDERED: SUCCINYLCHOLINE CHLORIDE 100 MG/5 ML SYR IV ONE (05:56)
[2019-05-10] MEDS ORDERED: HEPARIN SODIUM,PORCINE 5,000 UNIT/ML 1 ML VIAL ONE (05:56)
[2019-05-10] MEDS ORDERED: SODIUM CHLORIDE 0.9% 1,000 ML IV ONE (05:56)
[2019-05-10] MEDS ORDERED: PROPOFOL 10 MG/ML 20 ML VIAL IV ONE (05:56)
[2019-05-10] MEDS ORDERED: DEXAMETHASONE SOD PHOS (MDV) 100 MG/10 ML VIAL ONE (05:56)
[2019-05-10] MEDS ORDERED: fentaNYL (PF) 50 MCG/ML 2 ML AMP ONE (05:56)
[2019-05-10] MEDS ORDERED: ROCURONIUM BROMIDE 10 MG/ML 5 ML VIAL IV ONE (05:56)
[2019-05-10] MEDS ORDERED: ceFAZolin 1,000 MG VIAL IVPB ONE (06:00)
[2019-05-10] MEDS ORDERED: metroNIDAZOLE-NS PMX 500 MG in SALINE 1 100ML.BAG IVPB STA (06:20)
[2019-05-10] MEDS ORDERED: diphenhydrAMINE 50 MG/ML 1 ML VIAL IVP PRN (06:42)
[2019-05-10] MEDS ORDERED: NALOXONE 0.4 MG/ML 1 ML VIAL IV PRN (06:42)
[2019-05-10] MEDS ORDERED: ROPIVACAINE 400 MG, HYDROMORPHONE (PF) 5 MG in SODIUM CHLORIDE 0.9% 170 ML EPIDURAL PRN (07:00)
[2019-05-10] MEDS: PANTOPRAZOLE 40 MG TABLET PO SCH (07:25)
[2019-05-10] MEDS ORDERED: LACTATED RINGERS 1,000 ML IV ONE (08:52)
--- NOTE | 2019-05-10 09:09 | P.OP ---
Date of Procedure: 05/10/19 Procedure(s) Performed: PREOPERATIVE DIAGNOSIS: Obstructing mass right colon POSTOPERATIVE DIAGNOSIS: Same PROCEDURE: Exploratory laparotomy with right colectomy SURGEON: Monique EBL: 100ML ANESTHESIA: General COMPLICATIONS: None OPERATIVE PROCEDURE: Placement placed in the operating table in the supine posit ion. The patient was placed under general anesthesia. Abdomen was then prepped and draped sterilely. Midline incision made using the scalpel. Dissection through the subcutaneous tissues and fascia took place using electrocautery. Entrance into the perineal cavity occurred. Bookwalter retractor was utilized. Patient's small bowel and colon are both slightly distended. Bowel was viable throughout. The palpable mass was identified at the distal ascending colon. The cecum and terminal ileum were mobilized by incising the peritoneum. The white line of Toldt was incised as well. The mesentery of the cecum and ascending colon was brought medially. As we approached the area of the palpable mass there was some significant induration present. Careful dissection was able to mobilize this mass medially off of the duodenum. There did not appear to be any gross neoplastic extension into the surrounding tissues. The duodenum was carefully preserved and no cautery was used adjacent to the duodenum. The transverse colon was then divided using a linear 75 stapler. Mesentery of the transverse colon and ascending colon cecum and terminal ileum was then divided using a combination of 0 silk ties and the LigaSure device. Specimen was passed off at that point. The area was irrigated. No bleeding was seen. The antimesenteric portion of the staple line of both the ileum and transverse colon was excised using electrocautery. The linear 75 stapler was fired along the antimesenteric border creating a [id number] anastomosis antiperistaltic. The defect was then closed using a TX 60 device. The TX 60 stapler line was imbricated using interrupted 3-0 GI silk sutures. A 3-0 GI silk crotch stitch was also placed. Again irrigation took place with no evidence of bleeding. No additional abnormalities in the bowel both small bowel and colon were identified. Palpation of the liver revealed multiple small palpable lesions. As I inspected grossly these were small only 5-6 mm and sized and appeared purple in color likely representing small cysts or hemangiomas. Following that the colon closure table set was utilized. New drapes were placed. The midline fascia was then reapproximated using 2 separate double-stranded looped PDS sutures. The subcutaneous tissues were closed using 3-0 Vicryl sutures. The skin was closed using jessica. Sterile dressings were applied. At the end of this procedure the sponge needle and ensure counts were correct. DISPOSITION: Stable to recovery room
[2019-05-10 11:28] LABS: Basophils % (A) 0 %; Eosinophils % (A) 0 %; HCT 38.6 % (39.0-53.0); HGB 12.3 gm/dL (13.0-17.5); Lymphocytes # (A) 0.2 k/uL (1.0-4.8); Lymphocytes % (A) 2 %; MCH 29.5 pg (25.0-35.0); MCV 92.3 fL (80.0-100.0); Mean Platelet Volume 8.2; Monocytes # (A) 0.5 k/uL (0-1.0); Monocytes % (A) 4 %; Neutrophils # (A) 12.9 k/uL (1.3-7.7); Neutrophils % (A) 94 %; Platelet Count 342 k/uL (150-450); RBC 4.18 m/uL (4.30-5.90); RDW 12.8 % (11.5-15.5); WBC 13.8 k/uL (3.8-10.6)
[2019-05-10 11:45] LABS: African American GFR (CKD) >90 (>60 ml/min/1.73 sqM); Anion Gap 10 mmol/L; Blood Urea Nitrogen 9 mg/dL (9-20); Calcium 8.4 mg/dL (8.4-10.2); Carbon Dioxide 21 mmol/L (22-30); Chloride 105 mmol/L (98-107); Glucose 111 mg/dL (74-99); Non-African American GFR(CKD) >90 (>60 ml/min/1.73 sqM); Potassium 4.4 mmol/L (3.5-5.1); Sodium 136 mmol/L (137-145)
[2019-05-10] MEDS: D5-0.45% NACL WITH KCL 20MEQ/L 1,000 ML IV SCH ×2 (15:21→18:46)
[2019-05-10] MEDS: HEPARIN SODIUM,PORCINE 5,000 UNIT/ML 1 ML VIAL SQ SCH ×2 (15:21→20:41)
[2019-05-10] MEDS: NICOTINE 21MG/24HR PATCH TRANSDERM SCH (15:21)
--- NOTE | 2019-05-10 17:13 | PN ---
PROGRESS NOTE DATE OF SERVICE: 05/10/2019 This 43-year-old gentleman admitted with abdominal pain and possible colonic obstruction underwent exploratory laparotomy with right colectomy by Dr. Amaya. The patient also underwent end-to-end anastomosis. No chest pain. No palpitations. No fever. PHYSICAL EXAMINATION: Slightly drowsy after surgery. Pulse is 99, blood pressure 174/82, respirations 17, temperature 99 degrees, pulse ox 94% on room air. HEENT: Conjunctivae normal. NECK: No jugular venous distention. CARDIOVASCULAR SYSTEM: S1, S2 muffled. RESPIRATORY SYSTEM: Breath sounds diminished at the bases. A few scattered rhonchi. ABDOMEN: Soft, non-tender. NERVOUS SYSTEM: No focal deficit. LABS: WBC 13.8, hemoglobin 12.3. Sodium 136. ASSESSMENT: 1. Abdominal pain and vomiting, possibly colonic obstruction secondary to colon cancer, status post exploratory laparotomy as well as right colectomy. 2. Increased white count, possibly reactive. 3. Positive ketones in the urine at the time of admission. 4. History of recent cholecystectomy. 5. Hypertension. 6. History of chronic back pain. 7. History of colitis. 8. History of cholecystectomy and adenoidectomy. 9. History of anxiety, bipolar. 10.History of continued ongoing nicotine dependence. 11.Hyponatremia. RECOMMENDATIONS AND DISCUSSION: I recommend to continue current medications, continue with the monitoring, symptomatic treatment. Will continue to monitor. Otherwise, incentive spirometry, DVT prophylaxis. Closely follow with Dr. Amaya and await biopsy report. Further recommendations to follow. MMODL / IJN: [id number] /
[2019-05-10] MEDS: ONDANSETRON 4 MG/2 ML VIAL IVP PRN (18:44)
[2019-05-11] MEDS: SODIUM CHLORIDE 0.9% 1,000 ML IV SCH ×2 (01:03→16:08)
[2019-05-11] MEDS: HYDROmorphone 1 MG/ML 1 ML SYRINGE IVP PRN ×7 (02:03→23:09)
[2019-05-11] MEDS: D5-0.45% NACL WITH KCL 20MEQ/L 1,000 ML IV SCH ×3 (02:08→17:54)
[2019-05-11] MEDS: PANTOPRAZOLE 40 MG TABLET PO SCH (07:24)
[2019-05-11] MEDS: ONDANSETRON 4 MG/2 ML VIAL IVP PRN ×2 (07:24→18:38)
[2019-05-11 08:25] LABS: Basophils # (A) 0.2 k/uL (0-0.2); Basophils % (A) 1 %; Eosinophils # (A) 0.1 k/uL (0-0.7); Eosinophils % (A) 1 %; HGB 11.4 gm/dL (13.0-17.5); Lymphocytes % (A) 9 %; MCH 28.8 pg (25.0-35.0); MCHC 31.6 g/dL (31.0-37.0); MCV 91.1 fL (80.0-100.0); Mean Platelet Volume 8.8; Monocytes # (A) 0.9 k/uL (0-1.0); Monocytes % (A) 9 %; Neutrophils # (A) 8.5 k/uL (1.3-7.7); Neutrophils % (A) 79 %; Platelet Count 347 k/uL (150-450); RBC 3.95 m/uL (4.30-5.90); RDW 12.9 % (11.5-15.5); WBC 10.8 k/uL (3.8-10.6)
[2019-05-11 08:33] LABS: African American GFR (CKD) >90 (>60 ml/min/1.73 sqM); Anion Gap 6 mmol/L; Blood Urea Nitrogen 8 mg/dL (9-20); Calcium 8.5 mg/dL (8.4-10.2); Carbon Dioxide 27 mmol/L (22-30); Chloride 101 mmol/L (98-107); Glucose 122 mg/dL (74-99); Non-African American GFR(CKD) >90 (>60 ml/min/1.73 sqM); Potassium 4.3 mmol/L (3.5-5.1); Sodium 134 mmol/L (137-145)
[2019-05-11] MEDS: HEPARIN SODIUM,PORCINE 5,000 UNIT/ML 1 ML VIAL SQ SCH ×2 (09:04→20:32)
[2019-05-11] MEDS: ALVIMOPAN 12 MG CAPSULE PO SCH ×2 (09:04→20:31)
[2019-05-11] MEDS: NICOTINE 21MG/24HR PATCH TRANSDERM SCH (09:04)
[2019-05-11] MEDS ORDERED: KETOROLAC 30 MG/ML 1 ML VIAL IVP PRN (11:49)
[2019-05-11] MEDS ORDERED: HYDROcodone/APAP 5-325MG 1 EACH TAB PO PRN (11:49)
--- NOTE | 2019-05-11 11:51 | P.PN ---
<Jacqueline Perez Missael - Last Filed: 05/11/19 11:45> Subjective Progress Note Date: 05/11/19 CHIEF COMPLAINT: Abdominal pain HISTORY OF PRESENT ILLNESS: 43-year-old male who underwent exploratory laparotomy with right colectomy. Postoperative day #1. Patient had an epidural placed for postoperative pain management. Overnight, patient did not tolerate epidural well. It was discontinued. He is feeling much better since epidural was removed. His pain is controlled this morning. Tolerating clear liquid diet. No flatus as of yet. Reports belching. Denies nausea or vomiting. Patient was bladder scanned this morning for 600 mL. At the time of my examination patient voided 200 mL. PHYSICAL EXAM: VITAL SIGNS: Reviewed. GENERAL: Well-developed in no acute distress. HEENT: No sclera icterus. Extraocular movements grossly intact. Moist buccal mucosa. Head is atraumatic, normocephalic. ABDOMEN: Soft. Appropriate surgical tenderness. Midline dressing with small amount of shadowing present. NEUROLOGIC: Alert and oriented. Cranial nerves II through XII grossly intact. ASSESSMENT: 1. Abdominal pain 2. Constipation x 3 months 3. Colon mass of ascending colon 4. History of colitis, January 2019 5. History of lap ruby, January 2019 PLAN: Clear liquid diet as tolerated. Await bowel function. Continue Entereg Continue to monitor for urinary retention Incentive spirometer Increase activity as tolerated Pain control. Continue IV dilaudid. Will add [place] PRN and Toradol PRN Nurse practitioner note has been reviewed by physician. Signing provider agrees with the documented findings, assessment, and plan of care. Objective - Vital Signs Vital signs: Vital Signs Temp 98.3 F 05/11/19 07:19 Pulse 75 05/11/19 07:19 Resp 16 05/11/19 07:19 BP 148/82 05/11/19 07:19 Pulse Ox 96 05/11/19 07:19 Intake & Output 05/10/19 05/11/19 05/11/19 18:59 06:59 18:59 Intake Total 0 Output Total 700 250 Balance -700 -250 Intake: IV 0 Output: Urine 700 250 Other: Voiding Method Toilet Toilet - Labs CBC & Chem 7: 05/11/19 07:33 05/11/19 07:33 Labs: Abnormal Lab Results - Last 24 Hours (Table) 02/03/1705/11/19 05/11/19 Range/Units 11:02 07:33 07:33 WBC 10.8 H (3.8-10.6) k/uL RBC 3.95 L (4.30-5.90) m/uL Hgb 11.4 L (13.0-17.5) gm/dL Hct 36.0 L (39.0-53.0) % Neutrophils # 8.5 H (1.3-7.7) k/uL Sodium 136 L 134 L (137-145) mmol/L Carbon Dioxide 21 L (22-30) mmol/L BUN 8 L (9-20) mg/dL Glucose 111 H 122 H (74-99) mg/dL <Ishan Amaya - Last Filed: 05/11/19 13:16> Subjective As above. Patient complaining of mild pain. Epidural was removed last night as he felt it was giving him multiple side effects including nausea, itching, agitation, and for pain control. Does state he feels better today. He was having some urinary retention which has improved. No flatus or bowel movement. Nausea improved. He has ambulating in the hallways. Labs noted. May shower today. Add Toradol. Objective - Vital Signs Vital signs: Vital Signs Temp 98.3 F 05/11/19 07:19 Pulse 75 05/11/19 07:19 Resp 16 05/11/19 07:19 BP 148/82 05/11/19 07:19 Pulse Ox 96 05/11/19 07:19 Intake & Output 05/10/19 05/11/19 05/11/19 18:59 06:59 18:59 Intake Total 0 Output Total 700 650 Balance -700 -650 Intake: IV 0 Output: Urine 700 650 Other: Voiding Method Toilet Toilet - Labs CBC & Chem 7: 05/11/19 07:33 05/11/19 07:33 Labs: Abnormal Lab Results - Last 24 Hours (Table) 05/11/19 05/11/19 Range/Units 07:33 07:33 WBC 10.8 H (3.8-10.6) k/uL RBC 3.95 L (4.30-5.90) m/uL Hgb 11.4 L (13.0-17.5) gm/dL Hct 36.0 L (39.0-53.0) % Neutrophils # 8.5 H (1.3-7.7) k/uL Sodium 134 L (137-145) mmol/L BUN 8 L (9-20) mg/dL Glucose 122 H (74-99) mg/dL
[2019-05-11] MEDS: KETOROLAC 30 MG/ML 1 ML VIAL IVP SCH (17:51)
[2019-05-11] MEDS: amLODIPine 10 MG TAB PO SCH (23:10)
--- NOTE | 2019-05-12 00:11 | PN ---
PROGRESS NOTE DATE OF SERVICE: 05/11/2019 This 43-year-old gentleman who was admitted with abdominal pain and vomiting had possibly colonic obstruction secondary to colon cancer. No chest pain. No palpitations. No fever. PHYSICAL EXAMINATION: Alert and oriented x3. Pulse is 96, blood pressure 171/102, respirations 16, temperature 98.4, pulse ox 94% on room air. HEENT: Conjunctivae normal. NECK: No jugular venous distention. CARDIOVASCULAR SYSTEM: S1, S2 muffled. RESPIRATORY SYSTEM: Breath sounds diminished at the bases. No rhonchi. No crackles. ABDOMEN: Soft, non-tender. Status post surgery. LEGS: No edema. No swelling. NERVOUS SYSTEM: No focal deficit. LABS: WBC 10.8, hemoglobin 11.4. Sodium 134. ASSESSMENT: 1. Abdominal pain and vomiting, possibly colonic obstruction secondary to colon cancer, status post exploratory laparotomy as well as right colectomy. 2. Increased white count, possibly reactive. 3. Positive ketones in the urine at the time of admission. 4. History of recent cholecystectomy. 5. Hypertension. 6. History of chronic back pain. 7. History of colitis. 8. History of cholecystectomy and adenoidectomy. 9. History of anxiety, bipolar. 10.History of continued ongoing nicotine dependence. 11.Hyponatremia. RECOMMENDATIONS AND DISCUSSION: I recommend to continue current medications, continue with the monitoring, symptomatic treatment. I would for follow the patient closely with Dr. Amaya. DVT prophylaxis. We will add Norvasc to the current regimen. Otherwise, we will continue to monitor. The patient is on a clear liquid diet and we will stop the IV fluids. Further recommendations to follow. MMODL / IJN: [id number] /
[2019-05-12] MEDS: D5-0.45% NACL WITH KCL 20MEQ/L 1,000 ML IV SCH ×3 (01:21→17:37)
[2019-05-12] MEDS: KETOROLAC 30 MG/ML 1 ML VIAL IVP SCH ×5 (01:21→23:30)
[2019-05-12 08:00] LABS: Basophils # (A) 0.1 k/uL (0-0.2); Basophils % (A) 2 %; Eosinophils # (A) 0.2 k/uL (0-0.7); Eosinophils % (A) 3 %; HCT 37.2 % (39.0-53.0); Lymphocytes # (A) 0.5 k/uL (1.0-4.8); Lymphocytes % (A) 7 %; MCH 29.4 pg (25.0-35.0); MCHC 32.2 g/dL (31.0-37.0); MCV 91.3 fL (80.0-100.0); Mean Platelet Volume 8.9; Monocytes # (A) 0.7 k/uL (0-1.0); Monocytes % (A) 8 %; Neutrophils # (A) 6.4 k/uL (1.3-7.7); Neutrophils % (A) 80 %; Platelet Count 325 k/uL (150-450); RBC 4.08 m/uL (4.30-5.90); RDW 13.1 % (11.5-15.5)
[2019-05-12 08:19] LABS: African American GFR (CKD) >90 (>60 ml/min/1.73 sqM); Anion Gap 8 mmol/L; Blood Urea Nitrogen 9 mg/dL (9-20); Calcium 8.6 mg/dL (8.4-10.2); Carbon Dioxide 27 mmol/L (22-30); Chloride 100 mmol/L (98-107); Glucose 108 mg/dL (74-99); Non-African American GFR(CKD) >90 (>60 ml/min/1.73 sqM); Potassium 4.5 mmol/L (3.5-5.1); Sodium 135 mmol/L (137-145)
[2019-05-12] MEDS: HEPARIN SODIUM,PORCINE 5,000 UNIT/ML 1 ML VIAL SQ SCH ×2 (08:45→21:02)
[2019-05-12] MEDS: PANTOPRAZOLE 40 MG TABLET PO SCH (08:45)
[2019-05-12] MEDS: ALVIMOPAN 12 MG CAPSULE PO SCH ×2 (08:51→21:01)
[2019-05-12] MEDS: NICOTINE 21MG/24HR PATCH TRANSDERM SCH (08:51)
[2019-05-12] MEDS: amLODIPine 10 MG TAB PO SCH (08:51)
--- NOTE | 2019-05-12 09:03 | P.PN ---
Subjective Progress Note Date: 05/12/19 CHIEF COMPLAINT: Abdominal pain HISTORY OF PRESENT ILLNESS: 43-year-old male who is status post exploratory laparotomy with right colectomy. Postoperative day #2. Patient examined this morning. He is sitting up in the chair. Tolerating clear liquid diet. Denies nausea or vomiting. Continues to report belching. Denies passing flatus. Patient reports his pain is controlled at this time. No further episodes with urinary retention. WBC 8.0. Hemoglobin 12.0. Vital signs stable. Patient reports he has been ambulating in the hallway. Using incentive spirometer 10 times an hour. PHYSICAL EXAM: VITAL SIGNS: Reviewed. GENERAL: Well-developed in no acute distress. HEENT: No sclera icterus. Extraocular movements grossly intact. Moist buccal mucosa. Head is atraumatic, normocephalic. ABDOMEN: Soft. Appropriate surgical tenderness. Midline dressing with small amount of shadowing present. NEUROLOGIC: Alert and oriented. Cranial nerves II through XII grossly intact. ASSESSMENT: 1. Abdominal pain 2. Constipation x 3 months 3. Colon mass of ascending colon 4. History of colitis, January 2019 5. History of lap ruby, January 2019 PLAN: Clear liquid diet. Await bowel function. Continue Entereg Incentive spirometer Increase activity as tolerated Pain control. Continue current pain regimen. Nurse practitioner note has been reviewed by physician. Signing provider agrees with the documented findings, assessment, and plan of care. Objective - Vital Signs Vital signs: Vital Signs Temp 98.4 F 05/12/19 07:15 Pulse 104 H 05/12/19 07:15 Resp 19 05/12/19 07:15 BP 143/76 05/12/19 07:15 Pulse Ox 94 L 05/12/19 07:15 Intake & Output 05/11/19 05/12/19 05/12/19 18:59 06:59 18:59 Output Total 650 Balance -650 Weight 93 kg Output: Urine 650 Other: Voiding Method Toilet - Labs CBC & Chem 7: 05/12/19 07:05 05/12/19 07:05 Labs: Abnormal Lab Results - Last 24 Hours (Table) 05/12/19 05/12/19 Range/Units 07:05 07:05 RBC 4.08 L (4.30-5.90) m/uL Hgb 12.0 L (13.0-17.5) gm/dL Hct 37.2 L (39.0-53.0) % Lymphocytes # 0.5 L (1.0-4.8) k/uL Sodium 135 L (137-145) mmol/L Glucose 108 H (74-99) mg/dL
[2019-05-12 11:51] VITALS: BMI 30.5
--- NOTE | 2019-05-12 17:02 | PN ---
PROGRESS NOTE DATE OF SERVICE: 05/12/2019 This 43-year-old gentleman admitted with abdominal pain and vomiting had colon cancer. The patient had surgery. Final biopsy report is pending at this time. No chest pain. No palpitations. No fever. PHYSICAL EXAMINATION: Alert and oriented x3. Pulse is 97, blood pressure 146/76, respiration 19, temperature 98.0, pulse ox 92% on room air. HEENT: Conjunctivae normal. NECK: No jugular venous distention. CARDIOVASCULAR SYSTEM: S1, S2 muffled. RESPIRATORY SYSTEM: Breath sounds diminished at the bases. A few scattered rhonchi and crackles. ABDOMEN: Soft. Status post surgery. LEGS: No edema. No swelling. NERVOUS SYSTEM: No focal deficit. LABS: WBC 8. Sodium is 135. ASSESSMENT: 1. Abdominal pain and vomiting, possibly colonic obstruction secondary to colon cancer, status post exploratory laparotomy as well as right colectomy. 2. Increased white count, possibly reactive. 3. Positive ketones in the urine at the time of admission. 4. History of recent cholecystectomy. 5. Hypertension. 6. History of chronic back pain. 7. History of colitis. 8. History of cholecystectomy and adenoidectomy. 9. History of anxiety, bipolar. 10.History of continued ongoing nicotine dependence. 11.Hyponatremia. RECOMMENDATIONS AND DISCUSSION: I recommend to continue current medications, continue with the monitoring, symptomatic treatment. Otherwise at this time I recommend continuing with proton pump inhibitors. DVT prophylaxis. Monitor blood pressure. Further recommendations to follow. MMODL / IJN: [id number] /
[2019-05-13 07:04] LABS: Basophils # (A) 0.1 k/uL (0-0.2); Basophils % (A) 1 %; Eosinophils # (A) 0.2 k/uL (0-0.7); Eosinophils % (A) 3 %; HCT 36.7 % (39.0-53.0); Lymphocytes # (A) 0.7 k/uL (1.0-4.8); Lymphocytes % (A) 9 %; MCH 29.5 pg (25.0-35.0); MCHC 32.8 g/dL (31.0-37.0); MCV 90.1 fL (80.0-100.0); Monocytes # (A) 0.7 k/uL (0-1.0); Monocytes % (A) 9 %; Neutrophils # (A) 6.1 k/uL (1.3-7.7); Neutrophils % (A) 76 %; Platelet Count 354 k/uL (150-450); RBC 4.08 m/uL (4.30-5.90); RDW 13.1 % (11.5-15.5); WBC 7.9 k/uL (3.8-10.6)
[2019-05-13] MEDS: KETOROLAC 30 MG/ML 1 ML VIAL IVP SCH ×5 (07:09→23:16)
[2019-05-13 07:14] LABS: African American GFR (CKD) >90 (>60 ml/min/1.73 sqM); Anion Gap 8 mmol/L; Blood Urea Nitrogen 7 mg/dL (9-20); Calcium 8.9 mg/dL (8.4-10.2); Carbon Dioxide 24 mmol/L (22-30); Chloride 104 mmol/L (98-107); Glucose 112 mg/dL (74-99); Non-African American GFR(CKD) >90 (>60 ml/min/1.73 sqM); Potassium 4.5 mmol/L (3.5-5.1); Sodium 136 mmol/L (137-145)
[2019-05-13] MEDS: NICOTINE 21MG/24HR PATCH TRANSDERM SCH (07:14)
[2019-05-13] MEDS: amLODIPine 10 MG TAB PO SCH (07:14)
[2019-05-13] MEDS: PANTOPRAZOLE 40 MG TABLET PO SCH (07:14)
[2019-05-13] MEDS: ALVIMOPAN 12 MG CAPSULE PO SCH ×2 (07:14→20:08)
[2019-05-13] MEDS: HEPARIN SODIUM,PORCINE 5,000 UNIT/ML 1 ML VIAL SQ SCH ×2 (07:14→20:15)
[2019-05-13] MEDS: ONDANSETRON 4 MG/2 ML VIAL IVP PRN ×2 (10:50→17:33)
[2019-05-13] MEDS: HYDROmorphone 0.5 MG/0.5 ML SYRINGE IVP PRN ×3 (10:50→17:32)
[2019-05-13] MEDS: D5-0.45% NACL WITH KCL 20MEQ/L 1,000 ML IV SCH ×2 (13:21→18:43)
[2019-05-13] MEDS: DICYCLOMINE 10 MG CAP PO SCH ×2 (18:43→23:15)
--- NOTE | 2019-05-13 18:44 | P.PN ---
Subjective Progress Note Date: 05/13/19 CHIEF COMPLAINT: Obstructing right colon mass HISTORY OF PRESENT ILLNESS: The patient is a 43 male status post extended right hemicolectomy for obstructing right colon mass. He reports severe abdominal spasms with gas despite being on a liquid diet. Family is at bedside. He is having bowel movements. ROS: No reports of nausea and vomiting. No fevers or chills. No new chest pain. No productive sputum PHYSICAL EXAM: VITAL SIGNS: Reviewed CONSTITUTIONAL: Well developed and in no acute distress. EYES: Conjuctivae without sclera icterus. Extraocular movements grossly intact. HEAD, EARS, NOSE, THROAT: Moist buccal mucosa. Head is atraumatic, normocephalic. Hears conversational speech. No nasal drainage. RESPIRATORY: Non-labored respirations and equal bilateral excursions. CARDIOVASCULAR: Palpable 2+ radial pulses. ABDOMEN: Dressings intact. No peritonitis. MUSCULOSKELETAL: No gross deformity of the lower extremities noted. No clubbing. No cyanosis. SKIN: Good skin turgor. Well perfused. NEUROLOGIC: Cranial nerves I through XII grossly intact. No focal or lateralizing signs. PSYCH: Appropriate affect. Alert and oriented to person, place and time. CLINICAL LABS: White blood cell count normal at 7.9 ASSESSMENT: 1. Right colonic mass status post right hemicolectomy 2. Intestinal spasms PLAN: 1. Recommend Bentyl to address intestinal spasms and simethicone for abdominal gas 2. I have adjusted Toradol dose 30 mg every 6 3. Cont hospitalization for postoperative pain management Objective - Vital Signs Vital signs: Vital Signs Temp 97.8 F 05/13/19 15:05 Pulse 78 05/13/19 15:05 Resp 16 05/13/19 15:05 BP 168/65 05/13/19 15:05 Pulse Ox 96 05/13/19 15:05 Intake & Output 05/12/19 05/13/19 05/13/19 18:59 06:59 18:59 Intake Total 360 360 Balance 360 360 Weight 93.894 kg Intake: Oral 360 360 Other: Voiding Method Toilet Toilet # Voids 1 # Bowel Movements 1 - Labs CBC & Chem 7: 05/13/19 06:27 05/13/19 06:27 Labs: Abnormal Lab Results - Last 24 Hours (Table) 05/13/19 05/13/19 Range/Units 06:27 06:27 RBC 4.08 L (4.30-5.90) m/uL Hgb 12.0 L (13.0-17.5) gm/dL Hct 36.7 L (39.0-53.0) % Lymphocytes # 0.7 L (1.0-4.8) k/uL Sodium 136 L (137-145) mmol/L BUN 7 L (9-20) mg/dL Creatinine 0.63 L (0.66-1.25) mg/dL Glucose 112 H (74-99) mg/dL Assessment and Plan (1) Large bowel obstruction Current Visit: Yes Status: Acute Code(s): K56.609 - UNSP INTESTNL OBST, UNSP TO PARTIAL VERSUS COMPLETE OBST SNOMED Code(s): 936058803 (2) S/P right hemicolectomy Current Visit: Yes Status: Acute Code(s): Z90.49 - ACQUIRED ABSENCE OF OTHER SPECIFIED PARTS OF DIGESTIVE TRACT SNOMED Code(s): 804311074 (3) Spastic intestine Current Visit: Yes Status: Acute Code(s): K59.9 - FUNCTIONAL INTESTINAL DISORDER, UNSPECIFIED SNOMED Code(s): 16309755
[2019-05-13] MEDS: SIMETHICONE 80 MG CHEWABLE PO SCH ×2 (20:13→23:16)
--- NOTE | 2019-05-13 22:43 | PN ---
PROGRESS NOTE DATE OF SERVICE: 05/13/2019 This 43-year-old gentleman admitted after abdominal pain and had a colectomy. Patient is being closely monitored at this time. The biopsy of the surgical specimen showed infiltrating moderately differentiated adenocarcinoma perforating colon wall and focally involving a serosal margin of the excision in A4. No chest pain. No palpitations. No fever. PHYSICAL EXAMINATION: Alert and oriented x3. Pulse is 78, blood pressure 160/65, respirations 16, temperature 97.8, pulse ox 98% on room air. HEENT: Conjunctivae normal. Oral mucosa moist. NECK: No jugular venous distention. No lymph node enlargement. CARDIOVASCULAR: S1, S2. RESPIRATORY: Diminished breath sounds at the bases. No rhonchi, no crackles. ABDOMEN: Soft, status post surgery. Mild diffuse distention. LEGS: No edema, no swelling. NERVOUS SYSTEM: No focal deficits. LABS: WBC 7, hemoglobin 12, sodium 136. ASSESSMENT: 1. Abdominal pain, vomiting, possibly colonic abscess secondary to colon cancer status post exploratory laparotomy and as well as right colectomy. 2. Infiltrating moderately differentiated adenocarcinoma perforating colonic wall and locally involving the serosal margin in the biopsy. 3. Increased WBC, possibly reactive. 4. Positive ketones in the urine at the time of admission. 5. History of recent cholecystectomy. 6. Hypertension. 7. History of chronic back pain. 8. History of colitis. 9. History of cholecystectomy and adenoidectomy. 10.History of anxiety, bipolar. 11.History of continued ongoing nicotine dependence. 12.Hyponatremia. RECOMMENDATIONS AND DISCUSSION: I recommend to continue current medications, continue to monitor and symptomatic treatment. Otherwise, at this time I would also recommend hematology/oncology evaluation. Guarded prognosis. Further recommendations to follow. See orders for details. MMODL / IJN: [id number] /
[2019-05-14] MEDS: D5-0.45% NACL WITH KCL 20MEQ/L 1,000 ML IV SCH (02:57)
[2019-05-14] MEDS: KETOROLAC 30 MG/ML 1 ML VIAL IVP SCH ×2 (05:19→12:02)
[2019-05-14] MEDS: ALVIMOPAN 12 MG CAPSULE PO SCH (07:06)
[2019-05-14] MEDS: NICOTINE 21MG/24HR PATCH TRANSDERM SCH (09:34)
[2019-05-14] MEDS: DICYCLOMINE 10 MG CAP PO SCH (09:34)
[2019-05-14] MEDS: PANTOPRAZOLE 40 MG TABLET PO SCH (09:34)
[2019-05-14] MEDS: amLODIPine 10 MG TAB PO SCH (09:35)
[2019-05-14] MEDS: SIMETHICONE 80 MG CHEWABLE PO SCH (09:35)
[2019-05-14] MEDS: HEPARIN SODIUM,PORCINE 5,000 UNIT/ML 1 ML VIAL SQ SCH (09:35)
[2019-05-14 10:17] VITALS: BP 120/79; PULSE 92; RESP 16; TEMP 98.1
--- NOTE | 2019-05-14 12:03 | P.DS ---
Providers Date of admission: 05/07/19 19:12 Expected date of discharge: 05/14/19 Attending physician: David Epps MD Consults: 05/07/19 19:24 Consult Physician Stat Consulting Provider: Ishan Amaya Consult Reason/Comments: Mechanical bowel obstruction, suspicion for primary colon cancer Do you want consulting provider notified?: Yes 05/13/19 18:11 Consult Physician Routine Consulting Provider: Win Mendoza Consult Reason/Comments: malignancy Do you want consulting provider notified?: Yes Primary care physician: Stated None - Discharge Diagnosis(es) (1) Large bowel obstruction Current Visit: Yes Status: Acute (2) S/P right hemicolectomy Current Visit: Yes Status: Acute (3) Spastic intestine Current Visit: Yes Status: Acute Hospital Course: CHIEF COMPLAINT: Obstructing right colon mass HISTORY OF PRESENT ILLNESS: The patient is a 43 male status post extended right hemicolectomy for obstructing right colon mass. His abdominal spams is resolved with Toradol, Bentyl and Gas-X. He is eager for discharge. ROS: No reports of nausea and vomiting. No fevers or chills. No new chest pain. No productive sputum PHYSICAL EXAM: VITAL SIGNS: Reviewed CONSTITUTIONAL: Well developed and in no acute distress. EYES: Conjuctivae without sclera icterus. Extraocular movements grossly intact. HEAD, EARS, NOSE, THROAT: Moist buccal mucosa. Head is atraumatic, normocephalic. Hears conversational speech. No nasal drainage. RESPIRATORY: Non-labored respirations and equal bilateral excursions. CARDIOVASCULAR: Palpable 2+ radial pulses. ABDOMEN: Dressings intact. No peritonitis. MUSCULOSKELETAL: No gross deformity of the lower extremities noted. No clubbing. No cyanosis. SKIN: Good skin turgor. Well perfused. NEUROLOGIC: Cranial nerves I through XII grossly intact. No focal or lateralizing signs. PSYCH: Appropriate affect. Alert and oriented to person, place and time. CLINICAL LABS: White blood cell count normal at 7.9 ASSESSMENT: 1. Right colonic mass status post right hemicolectomy 2. Intestinal spasms PLAN: 1. May discharge home 2. Patient does not want narcotics. Will continue current pain management with ibuprofen, gas-x, and bentyl Patient Condition at Discharge: Stable Plan - Discharge Summary Discharge Rx Participant: Yes New Discharge Prescriptions: New Hydrocodone/Acetaminophen [[place] 5-325] 1 tab PO Q6HR PRN #10 tab PRN Reason: Pain Dicyclomine [Bentyl] 10 mg PO QID #30 capsule Simethicone [Gas-X] 125 mg PO AC-TID PRN #20 capsule PRN Reason: Abdominal Distention Ibuprofen [Motrin] 600 mg PO Q8HR PRN #30 tab PRN Reason: Pain Discontinued Ibuprofen [Motrin Ib] 400 mg PO Q6H PRN PRN Reason: Pain Discharge Medication List Hydrocodone/Acetaminophen [[place] 5-325] 1 tab PO Q6HR PRN #10 tab 05/12/19 [Rx] Dicyclomine [Bentyl] 10 mg PO QID #30 capsule 05/14/19 [Rx] Ibuprofen [Motrin] 600 mg PO Q8HR PRN #30 tab 05/14/19 [Rx] Simethicone [Gas-X] 125 mg PO AC-TID PRN #20 capsule 05/14/19 [Rx] Follow up Appointment(s)/Referral(s): Ishan Amaya MD [Medical Doctor] - 1 Week None,Stated [Primary Care Provider] - 1-2 days Patient Instructions/Handouts: Colectomy (IP), Colectomy Diet (DC) Activity/Diet/Wound Care/Special Instructions: May shower. No bathtub soaks. No lifting over 10 pounds. Discharge Disposition: HOME SELF-CARE
--- NOTE | 2019-05-14 12:03 | P.PN ---
Subjective Progress Note Date: 05/14/19 CHIEF COMPLAINT: Obstructing right colon mass HISTORY OF PRESENT ILLNESS: The patient is a 43 male status post extended right hemicolectomy for obstructing right colon mass. His abdominal spams is resolved with Toradol, Bentyl and Gas-X. He is eager for discharge. ROS: No reports of nausea and vomiting. No fevers or chills. No new chest pain. No productive sputum PHYSICAL EXAM: VITAL SIGNS: Reviewed CONSTITUTIONAL: Well developed and in no acute distress. EYES: Conjuctivae without sclera icterus. Extraocular movements grossly intact. HEAD, EARS, NOSE, THROAT: Moist buccal mucosa. Head is atraumatic, normocephalic. Hears conversational speech. No nasal drainage. RESPIRATORY: Non-labored respirations and equal bilateral excursions. CARDIOVASCULAR: Palpable 2+ radial pulses. ABDOMEN: Dressings intact. No peritonitis. MUSCULOSKELETAL: No gross deformity of the lower extremities noted. No clubbing. No cyanosis. SKIN: Good skin turgor. Well perfused. NEUROLOGIC: Cranial nerves I through XII grossly intact. No focal or lateralizing signs. PSYCH: Appropriate affect. Alert and oriented to person, place and time. CLINICAL LABS: White blood cell count normal at 7.9 ASSESSMENT: 1. Right colonic mass status post right hemicolectomy 2. Intestinal spasms PLAN: 1. May discharge home 2. Patient does not want narcotics. Will continue current pain management with ibuprofen, gas-x, and bentyl Objective - Vital Signs Vital signs: Vital Signs Temp 98.1 F 05/14/19 07:00 Pulse 92 05/14/19 08:35 Resp 16 05/14/19 08:35 BP 120/79 05/14/19 07:00 Pulse Ox 96 05/14/19 07:00 Intake & Output 05/13/19 05/14/19 05/14/19 18:59 06:59 18:59 Intake Total 360 Balance 360 Intake: Oral 360 Other: Voiding Method Toilet Toilet # Voids 1 # Bowel Movements 1 - Labs CBC & Chem 7: 05/13/19 06:27 05/13/19 06:27 Assessment and Plan (1) Large bowel obstruction Current Visit: Yes Status: Acute Code(s): K56.609 - UNSP INTESTNL OBST, UNSP TO PARTIAL VERSUS COMPLETE OBST SNOMED Code(s): 630251409 (2) S/P right hemicolectomy Current Visit: Yes Status: Acute Code(s): Z90.49 - ACQUIRED ABSENCE OF OTHER SPECIFIED PARTS OF DIGESTIVE TRACT SNOMED Code(s): 670646282 (3) Spastic intestine Current Visit: Yes Status: Acute Code(s): K59.9 - FUNCTIONAL INTESTINAL DISORDER, UNSPECIFIED SNOMED Code(s): 99440302
--- NOTE | 2019-05-14 16:35 | P.CONS ---
History of Present Illness - Reason for Consult Consult date: 05/14/19 New colon cancer Requesting physician: Verenice Rojas - Chief Complaint Abdominal Pain - History of Present Illness Jean is a pleasant 43 year old white male who was seen in hospital in January with colitis. During that time he underwent laparoscopic cholecystectomy. He states since this surgery he has had issues with constipation, bloating, abdominal discomfort and back pain. He has lost 30lb in past 6 months. He presented to emergency with these complaints and CT abdomen and pelvis revealed obstructing right colon mass suspicious for malignancy. On 05/09/2019 he underwent exploratory laprotomy with right colectomy. Unfortunetely his patholgy resulted with positive infiltrating moderately differentiating adenocarcinoma. 2 of 19 lymph nodes positive POsitive invasion visceral peritoneum. Stage 3 (PT4, PN1, Mx). His baseline CEA 2.3. He has no history of personal cancer. He denies alcohol use, last over 10 years ago and even then socially. Denies illicit drug use. Family history is positive for breast and colon cancer, grandmother. 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 He was seen prior to discharge from hospital and we reviewed the res ults of his pathology in detail. Review of Systems A 14 point review of systems assessed and completed and all negative except HPI Past Medical History Past Medical History: Hypertension Additional Past Medical History / Comment(s): chronic back pain, colitis History of Any Multi-Drug Resistant Organisms: None Reported Past Surgical History: Adenoidectomy, Cholecystectomy Past Psychological History: Anxiety, Bipolar Smoking Status: Current every day smoker Past Alcohol Use History: Occasional Past Drug Use History: None Reported - Past Family History Father Family Medical History: Diabetes Mellitus Additional Family Medical History / Comment(s): First cousin has been diagnosed with Chrons, Great Uncle had colon cancer. Mother Family Medical History: Thyroid Disorder Medications and Allergies Home Medications Medication Instructions Recorded Confirmed Type Hydrocodone/Acetaminophen [[place] 1 tab PO Q6HR PRN #10 tab 05/12/19 Rx 5-325] Dicyclomine [Bentyl] 10 mg PO QID #30 capsule 05/14/19 Rx Ibuprofen [Motrin] 600 mg PO Q8HR PRN #30 tab 05/14/19 Rx Simethicone [Gas-X] 125 mg PO AC-TID PRN #20 capsule 05/14/19 Rx amLODIPine [Norvasc] 10 mg PO DAILY #30 tab 05/14/19 Rx Allergies Allergy/AdvReac Type Severity Reaction Status Date / Time bee venom protein (honey bee) Allergy Anaphylaxis Verified 05/08/19 09:57 Physical Exam Vitals: Vital Signs Temp Pulse Pulse Resp BP Pulse Ox 05/14/19 08:35 92 16 05/14/19 07:00 98.1 F 92 16 120/79 96 05/14/19 02:17 98.3 F 86 18 123/70 95 05/13/19 20:00 98.4 F 84 18 144/75 96 05/13/19 15:05 97.8 F 78 16 168/65 96 Intake and Output 05/13/19 05/14/19 05/14/19 22:59 06:59 14:59 Intake Total 360 Balance 360 Intake: Oral 360 Other: Voiding Method Toilet # Voids 1 # Bowel Movements 1 Weight 93.894 kg - Constitutional General appearance: average body habitus, cooperative, no acute distress - EENT Eyes: PERRLA, normal appearance ENT: NA/AT, normal oropharynx - Neck Neck: normal ROM - Respiratory Respiratory: bilateral: CTA (No increased effort) - Cardiovascular Rhythm: regular Heart sounds: normal: S1, S2 - Gastrointestinal Evidence of recent surgery, tenderness General gastrointestinal: normal bowel sounds - Integumentary Integumentary: normal - Neurologic Neurologic: CNII-XII intact - Musculoskeletal Musculoskeletal: gait normal, strength equal bilaterally - Psychiatric Psychiatric: A&O x's 3, appropriate affect, intact judgment & insight Results CBC & Chem 7: 05/13/19 06:27 05/13/19 06:27 Comments: Pathology CT scan - abdomen: report reviewed CT scan - pelvis: report reviewed Assessment and Plan Plan: Assessment and recommendations: 1. New Diagnoses of Infiltrating moderately differential adenocarcinoma of the colon. - Working pathological stage 3 (pT4, pN1, Mx) - Discussed the recommendation for his high risk colon cancer, being adjuvant chemotherapy (likely 6 months - 12 treatments - FOLFOX), if no distant metastatic disease identified. - Will send path MSI, [place], BRAF, NGS - Will follow-up with Dr. Martin in the next few weeks to review. - He will be set up for mediport placement and CT chest as outpatient. - Baseline CEA 2.3 Greater than 40 minutes spent face to face with patient, greater than 30 minutes counseling and coordinating care. He is concerned without having insurance we will make sure social work follows ups. Physician Attest: I have completed the full history and physical of this patient and agree with above dictation, dictated as a scribe.
--- NOTE | 2019-05-15 06:04 | DS ---
DISCHARGE SUMMARY DATE OF SERVICE: 05/14/2018 FINAL DIAGNOSES: 1. Abdominal pain, vomiting, possibly colonic obstruction with colon cancer, status post exploratory laparotomy and right colectomy. 2. Infiltrating moderately differentiated adenocarcinoma with perforating colonic wall and locally involving serosal margins in the biopsy. 3. Increased WBC, possibly reactive. 4. Positive ketones in the urine at the time of admission. 5. History of recent cholecystectomy. 6. Hypertension. 7. History of chronic back pain. 8. History of colitis. 9. History of cholecystectomy and adenoidectomy. 10.History of anxiety, bipolar. 11.History of continued ongoing nicotine dependence. 12.Hyponatremia. DISCHARGE DISPOSITION: The patient will be discharged in stable condition with guarded prognosis. Discharge cleared by Surgery. HISTORY OF PRESENT ILLNESS: This 43-year-old gentleman admitted with abdominal symptoms, was found to have colonic obstruction. Subsequently, patient underwent colectomy for possible colonic mass and biopsy report came back positive and the patient has seen multiple consultants. Surgery saw the patient and cleared the patient for discharge. Hematology/Oncology saw the patient. On exam, vitals are stable. CARDIOVASCULAR: S1, S2 muffled. ABDOMEN: Soft. NERVOUS SYSTEM: No focal deficits. DISCHARGE ADVICE AND MEDICATIONS: 1. Diet is cardiac. 2. Activity limited until followup. 3. Follow up with Dr. Gabrielle Webster in 2 to 3 days. 4. Follow up with Dr. Amaya as recommended. 5. Follow up with Hematology/Oncology as recommended. Medications are: 1. Bentyl 10 mg q.i.d. p.r.n. 2. Gas-X. 3. Ibuprofen p.r.n. 4. [place] q.6 p.r.n. 5. Norvasc 10 mg p.o. daily. Once again, the patient will be discharged in a stable condition with guarded prognosis. MMODL / IJN: [id number] /
== END 2019-05-14 15:13 | disposition home or self-care (01) | DRG 330 ==
LOC: EC 17:11 → 6NMEDSUR 19:12 → 4SSUR 23:45
PROVIDERS: ADMIT Internal Medicine; ATTEND Internal Medicine
PROC: 0DBF0ZZ Excision of Right Large Intestine, Open Approach (ICD-10-PCS; principal; 2019-05-10 05:56)
DX: C18.2 Malignant neoplasm of ascending colon (principal); E87.1 Hypo-osmolality and hyponatremia; K56.609 Unspecified intestinal obstruction, unspecified as to partial versus complete obstruction; F17.210 Nicotine dependence, cigarettes, uncomplicated; F31.9 Bipolar disorder, unspecified; G89.29 Other chronic pain; I10 Essential (primary) hypertension; Z79.899 Other long term (current) drug therapy; Z80.0 Family history of malignant neoplasm of digestive organs; Z83.3 Family history of diabetes mellitus; M54.9 Dorsalgia, unspecified; Z80.3 Family history of malignant neoplasm of breast; K58.9 Irritable bowel syndrome, unspecified; Z90.49 Acquired absence of other specified parts of digestive tract; Z91.030 Bee allergy status
CPT/HCPCS: 36415; 74177; 74270; 80048; 80053; 81001; 82150; 82378; 83605; 83690; 85025; 85610; 85730; 86850; 86900; 86901; 88309; 96361; 96374; 96375; 96376; 99285

== ENCOUNTER → 2019-06-16 | Outpatient (CLI) | payer SELFPAY ==
--- NOTE | 2019-06-20 06:28 | PE ---
EXAMINATION TYPE: PET CT fusion skull to thigh DATE OF EXAM: 06/17/2019 COMPARISON: CT abdomen and pelvis May 07, 2019 and older CTs. HISTORY: Colorectal cancer initial staging study after surgery 5 weeks ago. TECHNIQUE: Following the intravenous administration of 12.611 mCi of F-18 FDG, whole body images are performed from the skull base to the midthigh. Images are reviewed on the computer in the coronal, axial, and sagittal planes. Reconstructed rotating images are created on independent workstation and reviewed on the computer. A noncontrast CT is performed in conjunction with the PET scan. SCAN: Initial Scan FINDINGS: SKULL BASE AND NECK: No suspicious hypermetabolic uptake. CHEST, MEDIASTINUM, AND HILAR REGION: No suspicious hypermetabolic uptake. ABDOMEN AND PELVIS: There is interval proximal partial colectomy with new sutures and bowel anastomos is axial image 147. Focus of hypermetabolic uptake along the deep vertical scar just inferior to umbi licus axial image 173 is nonspecific, max SUV is 3.00 at this level without definitive suspicious sof t tissue nodule. No additional areas of suspicious hypermetabolic uptake. OSSEOUS STRUCTURES: No areas of suspicious hypermetabolic uptake. OTHER CT: Mild cardiomegaly is redemonstrated. Liver redemonstrates multiple heterogeneous subcentimeter hypodense lesions scattered throughout grea test in the dome without definitive hypermetabolic uptake, simple thin-walled cysts are suspected. Ch olecystectomy clips are redemonstrated. Interval resolution of bowel obstruction after surgery. Mild wall thickening in the bladder is noted, correlate clinically to exclude acute cystitis. Scattered right-sided pelvic phleboliths redemonstra benita. Disc space narrowing lumbosacral junction. Scoliotic curvature cervicothoracic level. IMPRESSION: Interval partial colectomy. Small hypermetabolic focus along the deep ventral wall incisi on presumed postsurgical but is nonspecific otherwise no areas of hypermetabolic uptake to suggest re sidual or metastatic neoplasm.
== END | disposition home or self-care (01) ==
LOC: RADPETMAIN 17:38
PROVIDERS: ATTEND Internal Medicine Hematology & Oncology
DX: C18.2 Malignant neoplasm of ascending colon (principal); Z98.890 Other specified postprocedural states
CPT/HCPCS: 78815; A9552

== ENCOUNTER 2019-09-11 12:08 | Emergency (ER) | payer OTHER ==
[2019-09-11] MEDS ORDERED: LIDOCAINE/EPINEPHR/TETRACAINE 5 ML BOTTLE TOPICAL ONE (13:11)
--- NOTE | 2019-09-11 13:39 | ED ---
Wound/Laceration HPI - General Chief Complaint: Wound/Laceration Stated Complaint: [facility] - facial lac Time Seen by Provider: 09/11/19 12:50 Source: patient Mode of arrival: ambulatory Limitations: no limitations - History of Present Illness Initial Comments: 43-year-old male with history of colon cancer presenting to the emergency department today for chief complaint of left eyebrow laceration. Patient states he lifted up a tire at work and it had a sharp edge that cut his eyebrow scraping his forehead. He states the proximal area of the laceration was deep the rest was very superficial. He was told by patient clinic they would need to come to the ER for suture repair as her concern is he is active with chemo that there would be risk of infection. Patient states he has not had abnormal labs such as neutropenia. Patient denies additional complaints denies LOC denies falling or trauma to the head. Patient states he was cut because optic [place] not because of the blunt trauma. Remaining review of systems negative upon arrival patient appears well no acute distress. States his tetanus up-to-date - Related Data Home Medications Medication Instructions Recorded Confirmed Ondansetron HCl [Zofran] 4 mg PO DIRECTED 06/27/19 09/05/19 Previous Rx's Medication Instructions Recorded Cephalexin [Keflex] 500 mg PO Q12HR 3 Days #6 cap 09/11/19 Allergies Allergy/AdvReac Type Severity Reaction Status Date / Time bee venom protein (honey bee) Allergy Anaphylaxis Verified 09/11/19 12:27 Review of Systems ROS Statement: Those systems with pertinent positive or pertinent negative responses have been documented in the HPI. ROS Other: All systems not noted in ROS Statement are negative. Past Medical History Past Medical History: Cancer, Hypertension Additional Past Medical History / Comment(s): chronic back pain, colitis. ASCENDING COLON CANCER History of Any Multi-Drug Resistant Organisms: None Reported Past Surgical History: Adenoidectomy, Cholecystectomy Past Anesthesia/Blood Transfusion Reactions: No Reported Reaction Past Psychological History: Anxiety, Bipolar Smoking Status: Current every day smoker - Past Family History Father Family Medical History: Diabetes Mellitus Additional Family Medical History / Comment(s): First cousin has been diagnosed with Chrons, Great Uncle had colon cancer. Mother Family Medical History: Thyroid Disorder General Exam - General Exam Comments Initial Comments: General: The patient is awake and alert, in no distress Eye: +3 mm pupils are equal, round and reactive to light, extra-ocular movements are intact. No nystagmus. There is normal conjunctiva bilaterally. No signs of icterus. Cardiovascular: There is a regular rate and rhythm. No murmur, rub or gallop is appreciated. Respiratory: Lungs are clear to auscultation, respirations are non-labored, breath sounds are equal. No wheezes, stridor, rales, or rhonchi. Musculoskeletal: Normal ROM, no tenderness. Strength 5/5. Sensation intact. Pulses equal bilaterally 2+. Neurological: A&O x 3. CN II-XII intact grossly, There are no obvious motor or sensory deficits. Coordination appears grossly intact. Speech is normal. Skin: Skin is warm and dry and no [id number] deep laceration of the left eye superior aspect, the remaining 4cm is superficial/abrasion like. No foreign body. no exposure of underlying structures. Psychiatric: Cooperative, appropriate mood & affect, normal judgment. Limitations: no limitations Course Vital Signs 09/11/19 09/11/19 12:23 14:01 Temperature 98.1 F 98.2 F Pulse Rate 83 84 Respiratory 18 16 Rate Blood Pressure 132/91 130/87 O2 Sat by Pulse 99 98 Oximetry Procedures - Laceration Laceration #1 Consent Obtained: verbal consent Indication: laceration Site: face Size (cm): 1 Description: linear Depth: simple, single layer Type of Sutures: nylon Size of Sutures: 6-0 Number of Sutures: 3 Technique: simple, interrupted Patient Tolerated Procedure: well, no complications Additional Comments: LET applied (topical numbing no injections), repaired after irrigation/iodine cleanse. Tolerated well. verbal consent prior to repair. Medical Decision Making - Medical Decision Making 43yo male presenting today for cc of eye brow laceration. Tdap within last 5 years. Clean appearing linear laceration. Denies neutropenia. Patient laceration repaired. tolerated well. Ppx abx however feel infection will be unlikely patient discharged appearing well after discussing case wtih Dr. choi. Return and suture care discussed. Disposition Clinical Impression: Facial laceration Disposition: HOME SELF-CARE Condition: Good Instructions (If sedation given, give patient instructions): Care For Your Stitches (ED), Facial Laceration (ED) Additional Instructions: Please use medication as discussed. Please follow-up with family doctor in the next 2 days, return for suture removal in 5 days.. No hot tub spools ponds no submerging head while sutures are in place. Please return to emergency room if the symptoms increase or worsen or for any other concerns. Prescriptions: Cephalexin [Keflex] 500 mg PO Q12HR 3 Days #6 cap Is patient prescribed a controlled substance at d/c from ED?: No Referrals: None,Stated [Primary Care Provider] - 1-2 days Time of Disposition: 13:39
[2019-09-11 14:02] VITALS: BP 130/87; PULSE 84; RESP 16; TEMP 98.2
== END 2019-09-11 14:01 | disposition home or self-care (01) ==
LOC: EC 12:08
DX: S01.112A Laceration without foreign body of left eyelid and periocular area, initial encounter (principal); I10 Essential (primary) hypertension; F17.200 Nicotine dependence, unspecified, uncomplicated; Z91.030 Bee allergy status; Z85.038 Personal history of other malignant neoplasm of large intestine; W22.8XXA Striking against or struck by other objects, initial encounter; Y92.89 Other specified places as the place of occurrence of the external cause; Y99.0 Civilian activity done for income or pay
CPT/HCPCS: 12011; 99282

== ENCOUNTER → 2020-01-11 | Outpatient (CLI) | payer SELFPAY ==
[2020-01-11 13:18] LABS: African American GFR (CKD) >90 (>60 ml/min/1.73 sqM); Blood Urea Nitrogen 11 mg/dL (9-20); Non-African American GFR(CKD) >90 (>60 ml/min/1.73 sqM)
--- NOTE | 2020-01-11 14:48 | CT ---
EXAMINATION TYPE: CT abdomen pelvis w con DATE OF EXAM: 01/11/2020 COMPARISON: PET/CT 06/16/2019 and prior to 12/17/2019. HISTORY: 44-year-old male C18.2, colon cancer. TECHNIQUE: Contiguous axial scanning of the abdomen and pelvis following administration of 100 ml Iso vaughn 300 IV contrast. Delayed images through the kidneys and coronal/sagittal reconstructions perform ed. CT DLP: 984.4 mGycm Automated exposure control for dose reduction was used. FINDINGS: Heart normal size without pericardial effusion. New 6 mm posterior left basilar pulmonary nodule. No pleural effusion. Redemonstrated numerous small hepatic cysts measuring up to 1.1 cm. Cholecystectomy clips. Portal tatiana ous system is patent. No biliary ductal dilatation. Adrenal glands, right kidney, spleen, and pancreas appear within normal limits. Small 1.1 cm lateral cortical cyst of the left kidney is unchanged. No dilated small bowel, free fluid, free air. Redemonstrated right hemicolectomy with ileocolonic anastomosis at the level of the proximal transver se colon. Mildly redundant sigmoid colon. Oral contrast progressed to the distal sigmoid. Pericolonic inflammat ory change. There is an enlarged 1.3 cm right paramedian upper to mid abdominal mesenteric lymph node, axial imag e 32. This appears unchanged compared to 05/07/2019 and no hypermetabolism was seen in this region on t he patient's 06/24/2019 PET/CT. No other mesenteric or retroperitoneal lymphadenopathy seen. Bladder urine distended. Multiple pelvic fluid ligaments. No abnormal fluid collection in the pelvis or pelvic lymphadenopathy. Bones: Degenerative disc disease L5-S1. No osseous destructive process. IMPRESSION: 1. REDEMONSTRATED RIGHT HEMICOLECTOMY WITH ILEOCOLONIC ANASTOMOSIS AT THE LEVEL OF THE PROXIMAL TRANS VERSE COLON. 2. A 6 MM POSTERIOR LEFT BASILAR PULMONARY NODULE IS SUSPICIOUS FOR A METASTATIC NODULE IT APPEARS NEW COMPARED TO 06/16/2019. 3. A 1.3 CM ENLARGED UPPER TO MID ABDOMINAL RIGHT-SIDED MESENTERIC LYMPH NODE IS INDETERMINATE, PROBA ANDREA BENIGN, IT APPEARS TO HAVE BEEN PRESENT BACK ON 05/07/2019 AND DID NOT SHOW ANY HYPERMETABOLISM ON THE 06/16/2019 PET/CT. THIS CAN BE REASSESSED AT FOLLOW-UP.
== END | disposition home or self-care (01) ==
LOC: RADCTMAIN 12:30
PROVIDERS: ATTEND Internal Medicine Hematology & Oncology
DX: R91.1 Solitary pulmonary nodule (principal); C18.9 Malignant neoplasm of colon, unspecified; Z90.49 Acquired absence of other specified parts of digestive tract
CPT/HCPCS: 82565; 84520; 74177; J1642; Q9967 ×2

== ENCOUNTER → 2020-04-19 | Outpatient (CLI) | payer SELFPAY ==
--- NOTE | 2020-04-19 09:56 | CT ---
EXAMINATION TYPE: CT chest w con DATE OF EXAM: 04/19/2020 COMPARISON: PET/CT June 16, 2019. HISTORY: History of colon cancer with pulmonary nodule, prior abnormal CT. CT DLP: 426 mGycm. Automated Exposure Control for Dose Reduction was Utilized. TECHNIQUE: CT scan of the thorax is performed following with IV Contrast, patient injected with 100 mL of Isovue 300. FINDINGS: LUNGS: There is enlarging 1.2 x 1.2 cm posterior left lower lobe nodule image [address], new from PET/CT. No additional new pulmonary nodules or masses. Lungs are clear. No pleural effusion or pneumothorax seen bilaterally. MEDIASTINUM: There are no greater than 1 cm hilar or mediastinal lymph nodes. Tiny pericardial effusi on is seen. No cardiomegaly. OTHER: Cholecystectomy clips. Scattered subcentimeter hypodense lesions throughout the liver too smal l to further characterize presumed benign are redemonstrated. Surgical sutures from partial right-zelalem ed colectomy redemonstrated. IMPRESSION: There is 1.2 cm posterior left lower lobe nodule increased in size from most recent CT st rongly suspicious for neoplasm. Metastatic disease would be favored given patient's history however p rimary lung neoplasm not entirely excluded.
== END | disposition home or self-care (01) ==
LOC: RADCTMAIN 08:36
PROVIDERS: ATTEND Internal Medicine Hematology & Oncology
DX: R91.1 Solitary pulmonary nodule (principal); C34.90 Malignant neoplasm of unspecified part of unspecified bronchus or lung; C18.2 Malignant neoplasm of ascending colon; Z91.030 Bee allergy status
CPT/HCPCS: 71260; Q9967

== ENCOUNTER → 2020-04-27 | Outpatient (CLI) | payer SELFPAY ==
--- NOTE | 2020-04-29 08:03 | PE ---
EXAMINATION TYPE: PET CT fusion skull to thigh DATE OF EXAM: 04/27/2020 COMPARISON: Prior PET/CT June 16, 2019. Prior chest CT April 19, 2020 and older CTs. HISTORY: History of colon cancer treated surgically April 2019, completed chemotherapy January 2020. TECHNIQUE: Following the intravenous administration of 9.67 mCi of F-18 FDG, whole body images are p erformed from the skull base to the midthigh. Images are reviewed on the computer in the coronal, ax ial, and sagittal planes. Reconstructed rotating images are created on independent workstation and r eviewed on the computer. A localization and attenuation correction CT is performed in conjunction w ith the PET scan. Blood glucose level was 90 SCAN: Subsequent Scan FINDINGS: SKULL BASE AND NECK: No new suspicious hypermetabolic uptake. CHEST, MEDIASTINUM, AND HILAR REGION: Corresponding to most recent chest CT there is persistent 1.2 x 1.1 cm posterior left lower lobe nodule axial image 99, this is ametabolic. It remains suspicious ho wever given new from prior PET/CT. No new areas of abnormal hypermetabolic uptake. ABDOMEN AND PELVIS: Partial proximal colectomy changes with bowel anastomosis near axial image 137 in the anterior upper to mid abdomen is redemonstrated. No new areas of abnormal hypermetabolic uptake. OSSEOUS STRUCTURES: No new areas of abnormal hypermetabolic uptake. OTHER CT: Mild cardiomegaly is redemonstrated. Stable right internal jugular Mediport catheter termin ating in SVC. Liver redemonstrates several heterogeneous subcentimeter hypodense lesions scattered throughout left hepatic lobe without definitive hypermetabolic uptake, simple thin-walled cysts are suspected. Nonobs tructing 3 mm right renal calculus on axial image 136. Stable 1.4 cm low dense right adrenal nodule p resumed benign lipid rich adenoma axial image 128. Cholecystectomy clips are redemonstrated. Scattere d right-sided pelvic phleboliths redemonstrated. Disc space narrowing lumbosacral junction. S-shaped scoliosis. IMPRESSION: New 1.2 cm left lower lobe nodule remains suspicious despite being ametabolic. No new are as of hypermetabolic uptake identified otherwise to suggest metastatic malignancy.
== END | disposition home or self-care (01) ==
LOC: RADPETMAIN 10:16
PROVIDERS: ATTEND Internal Medicine Hematology & Oncology
DX: C18.2 Malignant neoplasm of ascending colon (principal)
CPT/HCPCS: 78815; A9552

== ENCOUNTER → 2020-06-11 | Outpatient (CLI) | payer SELFPAY ==
--- NOTE | 2020-06-11 09:53 | CT ---
EXAMINATION TYPE: CT chest wo con DATE OF EXAM: 06/11/2020 COMPARISON: 04/27/2020, 04/19/2020, 01/11/2020, 05/07/2019 HISTORY: 44-year-old male Colon cancer, pulmonary nodule TECHNIQUE: Contiguous axial scanning of the chest without IV contrast. Coronal and sagittal reconstru ctions performed. CT DLP: 433.70 mGycm Automated exposure control for dose reduction was used. FINDINGS: Right anterior chest wall injection port with catheter tip in the mid SVC. Heart normal size. Trace pericardial fluid. Aorta normal caliber with bovine configuration to the aortic arch. No thoracic lymphadenopathy by CT size criteria. 1.3 cm posterior left lower lobe pulmonary nodule, axial image 30 previously measured 1.1 cm on 2020 and 6 mm on 01/11/2020. New from 05/07/2019. No additional pulmonary nodules are seen. No consolidation or pleural effusion. In the visualized upper abdomen, a 1.6 cm nodule probably associated with the right adrenal gland rem ains unchanged back to at least 05/07/2019. Numerous hepatic hypodensities suggestive of cysts measuring up to 2.2 cm. Cholecystectomy clips. Tiny posterior left upper pole left renal cortical cyst measuring 1 cm. Ileocolonic anastomosis noted at the transverse colon. Bones: No osseous destructive process. Mild degenerative disc disease. Dextroconvexed scoliosis cente red on the upper third thoracic spine. IMPRESSION: THE POSTERIOR LEFT LOWER LOBE PULMONARY NODULE CONTINUES TO SHOW SLOW INCREASE IN SIZE CURRENTLY AT 1 .3 CM VERSUS 1.1 CM ON 04/19/2020 AND 6 MM ON 01/11/2020. NEW FROM 05/07/2019. THE NODULE REMAINS SUSPIC IOUS.
== END ==
LOC: RADCTMAIN 08:29
PROVIDERS: ATTEND Internal Medicine Hematology & Oncology
DX: R91.1 Solitary pulmonary nodule (principal); C18.9 Malignant neoplasm of colon, unspecified
CPT/HCPCS: 71250

== ENCOUNTER → 2020-10-25 | Outpatient (CLI) | payer BC ==
--- NOTE | 2020-10-25 19:29 | CT ---
EXAMINATION TYPE: CT ChestAbdPelvis w con DATE OF EXAM: 10/25/2020 COMPARISON: 06/11/2020, PET scan 04/27/2019 HISTORY: colon and lung CA, obs for mets CT DLP: 1597 mGycm Automated exposure control for dose reduction was used. CONTRAST: CT scan of the chest, abdomen and pelvis is performed with Oral Contrast and with IV Contrast, patien t injected with 100 mL of Isovue 300. FINDINGS: LUNGS: There is a new area of subsegmental consolidation involving the left lung apex left and second area of somewhat irregular consolidation superior segment of the left upper lobe also new from the p rior exam most likely in the basis of atelectasis or resolving infiltrate rather than neoplastic. No pleural effusion or pneumothorax. No diagnostic evidence of pneumonia. Nodules: There is a new punctate 2 mm nodule right lung apex image 9. X line 1 mm nodule image 37 superior seg ment right lower lobe not seen on prior exam. Subpleural nodule right middle lobe image 41 retrospectively stable from prior exam. 2 mm nodule image 42 superior segment right lower lobe not seen with certainty on prior exam. 2 mm peripheral nodule axial image 27 left upper lobe not seen with certainty on prior exam. Previously noted superior segment left lower lobe pulmonary nodule measures 1.9 x 1.9 cm and previous ly measured 1.3 cm. 1 mm subpleural nodule image 43 posterior segment right lower lobe not seen with certainty on prior e xam. Within the medial aspect of the right lower lobe there are 2 tiny 1 to 2 mm nodules image 48 not seen with certainty on prior exam. MEDIASTINUM: There are no greater than 1 cm hilar or mediastinal lymph nodes. Mediport catheter not ed. Thyroid enhances normally. Aorta of normal caliber. Visualized portions of the pulmonary arteries enhance normally. Heart size normal. Trace of pericardial fluid noted likely physiologic. OTHER: No additional significant abnormality is seen. LIVER/GB: Post cholecystectomy clips noted. There are numerous low attenuating lesions involving the liver involving both lobes and virtually all segments. The largest measures 2.1 cm dome of the left lobe is stable. This may represent 2 small ad jacent lesions contiguous with each other rather than a single lesion. Majority of lesions are subcen timeter and too small to characterize but stable and therefore May represent tiny cysts. PANCREAS: No significant abnormality is seen. SPLEEN: No significant abnormality is seen. ADRENALS: Stable 1.5 to 1.6 cm right adrenal nodule. Subcentimeter left adrenal nodularity is also st able.. KIDNEYS: No hydronephrosis. Punctate 2 mm nonobstructing right renal calculus. There are multiple tiny hypodensities within the kidneys too small to characterize. There is an exoph ytic 8 mm lesion involving the mid left kidney likely related to simple cyst. There remains within th e mid posterior left kidney a hypodense exophytic lesion which does not meet the criteria of a simple cyst measuring 8 mm and stable from prior exam where was hyperdense on noncontrast imaging therefore likely related to hemorrhagic cyst. BOWEL: A postsurgical changes suggestive of right hemicolectomy. No definitive wall thickening or ev idence of obstruction. LYMPH NODES: There is shotty adenopathy in the retroperitoneum and. Pancreatic region with at least o ne mesenteric lymph node measuring short axis of 1.5 cm compatible with pathologic adenopathy. This a ppears to been present on the prior PET scan and stable in size. OSSEOUS STRUCTURES: Multilevel hypertrophic and degenerative changes are seen. OTHER: Aorta of normal caliber. Bladder has a normal appearance. No free fluid or free air. Small fat -containing periumbilical hernia. IMPRESSION: 1. Previously noted left lower lobe pulmonary nodule has increased in size now measuring 1.9 x 1.9 cm and previously measuring 1.3 cm. Additionally, there now is multiple new sub-5 mm pulmonary nodules as measured and discussed above. 2. Hepatic lesions are too small to characterize but stable. Given the stability felt to be most like ly related to statistically to simple cysts. 3. There is pathologic adenopathy in the mesentery which is stable dating back to the most recent PET scan 04/27/2020. 4. Nonobstructing punctate right renal calculus. 5. Indeterminate renal lesions most likely in the basis of tiny cysts. Hypodense lesion which does no t meet the criteria of a simple cyst involving the mid posterior cortical left kidney appears hyperde nse on the noncontrast CT of the chest performed recently and therefore likely is related to a hemorr hagic cyst. 6. Stable bilateral adrenal nodules unchanged in size.
== END | disposition home or self-care (01) ==
LOC: RADCTMAIN 17:02
PROVIDERS: ATTEND Internal Medicine Hematology & Oncology
DX: C34.90 Malignant neoplasm of unspecified part of unspecified bronchus or lung (principal); C18.9 Malignant neoplasm of colon, unspecified; N20.0 Calculus of kidney; K76.9 Liver disease, unspecified
CPT/HCPCS: 71260; 74177; Q9967

== ENCOUNTER → 2020-10-25 | Outpatient (CLI) | payer BC ==
--- NOTE | 2020-10-26 05:02 | MR ---
EXAMINATION TYPE: MR brain wo/w con DATE OF EXAM: 10/25/2020 COMPARISON: None HISTORY: Colon cancer, and history of lung cancer. CONTRAST: Standard multiplanar, multisequence MRI departmental protocol utilizing 10 mL intravenous Gadavist ga dolinium contrast. Ventricles have normal size. There is no mass effect nor midline shift. There is no sign of intracran ial hemorrhage. Diffusion images show no evidence of an acute infarct. Brainstem is intact. Cerebellu m is intact. Grade white matter structures overall have fairly normal signal pattern. There is no allyn dence of cerebral edema. There is some mild mucosal thickening in the anterior ethmoid air cells. Cor pus callosum appears normal. Sella turcica is normal. There is no evidence of orbital mass. Contrast images show no pathologic enhancement. There is normal enhancement of the venous sinuses. IMPRESSION: Negative MR scan of the brain. No evidence of metastatic disease. Minimal ethmoid sinusitis.
== END | disposition home or self-care (01) ==
LOC: RADMRIMAIN 17:13
PROVIDERS: ATTEND Internal Medicine Hematology & Oncology
DX: C18.9 Malignant neoplasm of colon, unspecified (principal); Z85.118 Personal history of other malignant neoplasm of bronchus and lung
CPT/HCPCS: 70553; A9585

== ENCOUNTER → 2020-11-29 | Outpatient (CLI) | payer BC ==
[2020-11-29 17:30] LABS: African American GFR (CKD) >90 (>60 ml/min/1.73 sqM); Blood Urea Nitrogen 16 mg/dL (9-20); Non-African American GFR(CKD) >90 (>60 ml/min/1.73 sqM)
--- NOTE | 2020-12-01 11:22 | CT ---
EXAMINATION TYPE: CT abdomen w con DATE OF EXAM: 11/29/2020 COMPARISON: 10/25/2020 HISTORY: Abdominal pain and swelling. History of colon cancer. CT DLP: 1052.5 mGycm, Automated Exposure Control for Dose Reduction was Utilized. CONTRAST: CT scan of the abdomen is performed with oral and with IV Contrast, patient injected with 100ml mL of Isovue 300. FINDINGS: Multiple nodules are demonstrated in the lung measuring up to 6 mm. Previously seen left lower lobe o pacity is decreased in size now measuring 1.5 x 1.1 cm previously measured up to 1.9 cm. Innumerable low attenuating hepatic lesions are again seen, some of which are too small to visualize. Cholecystectomy clips noted. No abnormal biliary ductal dilatation. There is a stable right adrenal gland nodule. The pancreas and spleen are within normal. The kidneys are normal in attenuation. There is a 1 cm x 1 cm exophytic lesion from the left kidney u pper pole posterior aspect series 3 image 23 which is not significantly changed compared to prior. Mu ltiple bilateral low attenuating lesions are also seen and may be on the basis of cysts. No hydroneph rosis. Nonobstructing punctate right renal calculus again seen. No intestinal obstruction or diverticulosis seen.The appendix is not seen. No evidence for hernia, pneumoperitoneum or ascites. Mesenteric lymphadenopathy is again seen without significant change the largest lymph node or conflue nce of lymph nodes seen on series 3 image 29 measuring up to 3.0 x 1.8 cm. Mild to moderate degenerative changes are seen in the spine. There is a low attenuating lesion in the 11 which is stable compared to prior. IMPRESSION: 1. No evidence of acute process. 2. New and enlarging lung nodules likely on the basis of metastasis. 3. Multiple low attenuating lesions in the liver stable in appearance. 4. Indeterminant 1 cm exophytic lesion from the left kidney upper pole. 5. Stable right adrenal nodule. 6. Mesenteric adenopathy.
== END | disposition home or self-care (01) ==
LOC: RADCTMAIN 16:37
PROVIDERS: ATTEND Internal Medicine Hematology & Oncology
DX: K76.9 Liver disease, unspecified (principal); N28.9 Disorder of kidney and ureter, unspecified; E27.8 Other specified disorders of adrenal gland; R59.0 Localized enlarged lymph nodes; Z85.038 Personal history of other malignant neoplasm of large intestine
CPT/HCPCS: 82565; 84520; 74160; 36415; Q9967

== ENCOUNTER → 2020-12-19 | Outpatient (CLI) | payer BC ==
--- NOTE | 2020-12-19 15:53 | MR ---
EXAMINATION TYPE: MR brain wo/w con DATE OF EXAM: 12/19/2020 COMPARISON: MR brain 10/25/2020 HISTORY: Colon cancer and headaches TECHNIQUE: Multiplanar, multisequence images of the brain and brainstem is performed without and with IV contras t, utilizing 10 cc mL intravenous Gadavist . FINDINGS: Diffusion weighted images demonstrate no evidence of a recent infarct or other diffusion ab normality. There is no extra-axial fluid collection or significant white matter signal abnormality. The ventricular system and cisternal spaces are normal in size and appearance. The brain volume is age appropriate. Midline structures demonstrate normal morphology. The craniocervical junction appears within normal limits. Post contrast images demonstrate stable enhancement, probable left frontal venous angioma ag ain seen. The dural venous sinuses appear patent. The visualized sinuses are remarkable for inflammat ory change in ethmoid air cells, right maxillary sinus greater than left, and the globes are intact. IMPRESSION: Brain MRI shows a stable appearance. There is sinus disease.
== END | disposition home or self-care (01) ==
LOC: RADMRIMAIN 10:34
PROVIDERS: ATTEND Internal Medicine Hematology & Oncology
DX: C18.9 Malignant neoplasm of colon, unspecified (principal); R51.9 Headache, unspecified
CPT/HCPCS: 70553; A9585

== ENCOUNTER → 2020-12-20 | Outpatient (CLI) | payer BC ==
--- NOTE | 2020-12-23 08:10 | PE ---
EXAMINATION TYPE: PET CT fusion skull to thigh DATE OF EXAM: 12/20/2020 COMPARISON: Most recent CT October 25, 2020. Most recent PET CT April 27, 2020 and older studies. HISTORY: Colon cancer progress study. History of colon cancer treated surgically April 2019, c ompleted chemotherapy January 2020. TECHNIQUE: Following the intravenous administration of 11.27 mCi of F-18 FDG, whole body images are performed from the skull base to the midthigh. Images are reviewed on the computer in the coronal, a xial, and sagittal planes. Reconstructed rotating images are created on independent workstation and reviewed on the computer. A localization and attenuation correction CT is performed in conjunction with the PET scan. Blood glucose level equals 89. SCAN: Subsequent Scan FINDINGS: SKULL BASE AND NECK: No new areas of suspicious hypermetabolic uptake. CHEST, MEDIASTINUM, AND HILAR REGION: Surgical sutures and scarring posterior left upper lung extendi ng inferiorly are redemonstrated. At site of prior medial 1.2 cm left basilar nodule there are suture s and nodular scarring. Scattered subcentimeter nodules are present bilaterally greatest in the bases . No areas of abnormal hypermetabolic uptake identified. Findings are new from most recent CT however making extremely suspicious. For reference to new nodules right lower lobe axial image 92, 3 nodules right lower lung axial image 95, 2 additional nodules right lung base axial image 99 and additional scattered nodules bilaterally all noted. ABDOMEN AND PELVIS: Partial proximal colectomy changes with bowel anastomosis near axial image 128 in the anterior upper to mid abdomen is redemonstrated. Just deep and inferior to this there are new wilson spicious prominent hypermetabolic lymph nodes for reference exam enlarged 1.9 x 1.5 cm lymph node axi al image 141, max SUV is 4.47 on axial image 136. No additional new areas of abnormal hypermetabolic uptake. OSSEOUS STRUCTURES: No new areas of abnormal hypermetabolic uptake. OTHER CT: Mild cardiomegaly is redemonstrated. Stable right internal jugular Mediport catheter termin ating in SVC. Liver redemonstrates stable heterogeneous subcentimeter hypodense lesions most numerous throughout le ft hepatic lobe without definitive hypermetabolic uptake, simple thin-walled cysts are strongly favor ed. Nonobstructing 2- 3 mm right renal calculus on axial image 136 is redemonstrated. Stable 1.4 cm l ow dense right adrenal nodule presumed benign lipid rich adenoma axial image 128. Cholecystectomy cli ps are redemonstrated. Scattered right-sided pelvic phleboliths redemonstrated. Disc space narrowing lumbosacral junction. S-shaped scoliosis. IMPRESSION: Suspicious adenopathy near site of prior colonic surgery. New strongly suspicious bilater al lower lung pulmonary nodules worrisome for hematogenous spread of metastatic disease from known co carmelo cancer.
== END | disposition home or self-care (01) ==
LOC: RADPETMAIN 14:54
PROVIDERS: ATTEND Internal Medicine Hematology & Oncology
DX: C18.2 Malignant neoplasm of ascending colon (principal); R91.8 Other nonspecific abnormal finding of lung field; Z85.038 Personal history of other malignant neoplasm of large intestine
CPT/HCPCS: 78815; A9552

== ENCOUNTER → 2021-01-24 | Outpatient (CLI) | payer BC ==
--- NOTE | 2021-01-25 03:08 | MR ---
EXAMINATION TYPE: MR zachery/lspine wo/w con DATE OF EXAM: 01/24/2021 COMPARISON: None HISTORY: Back pain, hx colon cancer. CONTRAST: Standard multiplanar, multisequence MRI departmental protocol utilizing 10 mL intravenous Gadavist ga dolinium contrast. Thoracic vertebra have fairly normal alignment. There is a mild midthoracic dextroscoliosis. There is no compression fracture. There is no significant thoracic disc space narrowing. Thoracic spinal cord has normal signal pattern. There is no edema. There is no thoracic spinal stenosis. There is mild di sc bulging in the lower thoracic spine. There is no evidence of thoracic paraspinal mass. The lumbar vertebra have normal alignment. Disc spaces are fairly normal. There is mild posterior dis c bulging from L2 to S1. There is developmentally large spinal canal. There is no spinal stenosis. Zelda mbar nerve roots appear fairly normal. There is no significant neural foraminal narrowing. There is n o lumbar compression fracture. Lumbar nerve roots appear normal. Contrast images show no pathologic enhancement of the thoracic and lumbar spine. IMPRESSION: Negative MR scan of the thoracic spine. Negative MR scan lumbar spine. Minor degenerative disc bulgin g at levels in the thoracic and lumbar spine without spinal stenosis. No fracture. No evidence of metastatic disease.
== END | disposition home or self-care (01) ==
LOC: RADMRIMAIN 20:37
PROVIDERS: ATTEND Internal Medicine Hematology & Oncology
DX: M51.24 Other intervertebral disc displacement, thoracic region (principal); M51.26 Other intervertebral disc displacement, lumbar region
CPT/HCPCS: 72157; 72158; A9585

== ENCOUNTER → 2021-03-10 | Outpatient (CLI) | payer BC ==
[2021-03-10 13:20] LABS: African American GFR (CKD) >90 (>60 ml/min/1.73 sqM); Blood Urea Nitrogen 15 mg/dL (9-20); Non-African American GFR(CKD) >90 (>60 ml/min/1.73 sqM)
--- NOTE | 2021-03-10 16:22 | CT ---
EXAMINATION TYPE: CT ChestAbdPelvis w con DATE OF EXAM: 03/10/2021 COMPARISON: Nuclear medicine PET/CT 12/20/2020 HISTORY: Follow up for colon cancer, observe for mets. CT DLP: 1893.2 mGycm Automated exposure control for dose reduction was used. CONTRAST: CT scan of the chest, abdomen and pelvis is performed with Oral Contrast and with IV Contrast, patien t injected with 100ml mL of Isovue 300. FINDINGS: There is a port in the right pectoral region, catheter not well seen LUNGS: The lungs are r emarkable for multiple pulmonary nodules, greater than 50 nodules are present, largest measures only approximately 12 mm in size. There is no pleural or pericardial effusion The tracheobronchial tree is patent. MEDIASTINUM: There are no greater than 1 cm hilar or mediastinal lymph nodes. No pericardial effusi on is seen. AORTA: No significant abnormality is seen. OTHER: No additional significant abnormality is seen. LIVER/GB: Multiple low dense foci are scattered within the liver similar to prior exam which statisti harleen are likely to represent cysts, patient is post cholecystectomy. PANCREAS: No significant abnormality is seen. SPLEEN: No significant abnormality is seen. ADRENALS: Right adrenal mass measures 2 cm, similar in appearance to prior PET/CT. KIDNEYS: No significant abnormality is seen. REPRODUCTIVE ORGANS: No gross abnormality seen. BOWEL: No significant abnormality is seen. FREE AIR: No Free Air visible. ASCITES: None seen. RETROPERITONEAL ADENOPATHY: Retroperitoneal adenopathy present along the aortocaval distribution, me senteric nodes are present which are enlarged as noted on prior CT, for example axial image 69 shows a short axis measurement of 15 mm. LYMPH NODES: No greater than 1 cm abdominal or pelvic lymph nodes are appreciated. URINARY BLADDER: No significant abnormality is seen. PELVIC ADENOPATHY: None visualized. OSSEOUS STRUCTURES: No significant abnormality is seen. IMPRESSION: There has been progression1 with 2 numerous to count pulmonary nodules. There is retroper itoneal and mesenteric adenopathy present.
== END | disposition home or self-care (01) ==
LOC: RADCTMAIN 12:41
PROVIDERS: ATTEND Internal Medicine Hematology & Oncology
DX: C18.2 Malignant neoplasm of ascending colon (principal); R91.8 Other nonspecific abnormal finding of lung field; R59.0 Localized enlarged lymph nodes
CPT/HCPCS: 82565; 84520; 71260; 74177; 36415; Q9967

== ENCOUNTER → 2021-06-26 | Outpatient (CLI) | payer OTHER ==
[2021-06-26 10:11] LABS: African American GFR (CKD) >90 (>60 ml/min/1.73 sqM); Blood Urea Nitrogen 12 mg/dL (9-20); Non-African American GFR(CKD) >90 (>60 ml/min/1.73 sqM)
--- NOTE | 2021-06-26 13:22 | CT ---
EXAMINATION TYPE: CT ChestAbdPelvis w con DATE OF EXAM: 06/26/2021 COMPARISON: CT dated 03/10/2021 HISTORY: Colon CA CT DLP: 1932.10 mGycm Automated exposure control for dose reduction was used. CONTRAST: CT scan of the chest, abdomen and pelvis is performed with Oral Contrast and with IV Contrast, patien t injected with 100 mL of Isovue 300. FINDINGS: LUNGS: 3 mm nodule is seen in the posterior aspect of the right lung base with more superior 1.5 mm n odule. The remainder of the previously seen multiple variable sized bilateral pulmonary nodules have completely resolved in the interim suggestive of almost a complete response. The areas of scarring/fi brosis with focal thickening at the posterior aspect of the left upper lobe as well as the left lower lobe are stable. No new or progressive lung lesion. Patent trachea and main bronchi. No pleural effu april. MEDIASTINUM: There are no greater than 1 cm hilar or mediastinal lymph nodes. Minimal pericardial flu id. No cardiomegaly. Patent major mediastinal vessels. OTHER: Right upper chest wall Port-A-Cath with the tip is seen within the SVC. No aggressive bone le april. Dextroscoliosis of the upper to midthoracic spine. LIVER/GB: Multiple variable sized hepatic hypodensities, likely representing hepatic cysts and apprec iated previously. Previous cholecystectomy. PANCREAS: No significant abnormality is seen. SPLEEN: No significant abnormality is seen. ADRENALS: Right adrenal nodule measuring 16mm compared to 18mm previously. Unremarkable left adrenal. KIDNEYS: Slightly increased density of previously seen left simple renal cysts, possibly due to inter nal hemorrhage or proteinaceous content, attention on follow-up. No other definite suspicious renal l esion identified. BOWEL: Unremarkable stomach and duodenum. Unremarkable ileocolic anastomosis in the upper abdomen to the right of the midline with no evidence of obstruction. No gross colonic mass. REPRODUCTIVE ORGANS: No gross abnormality seen. LYMPH NODES: Persistent multiple upper abdominal mesenteric lymph nodes/peritoneal nodules, slightly smaller compared to the previous measuring 15 mm compared to 17 mm previously. Possible adhesions/fib rosis between the mesenteric lymph nodes/nodules at the adjacent portion of the pancreas, second part duodenum and the ileocolic anastomosis. No progressive lymphadenopathy in the abdomen or the pelvis. OSSEOUS STRUCTURES: Degenerative changes at L5-S1 level. No aggressive bone lesion. OTHER: Unremarkable abdominal aorta. No sizable ascites. Fat-containing umbilical hernia. IMPRESSION: 1. Significant interval regression of the previously seen multiple pulmonary nodules with residual ti ny 2 nodules in the right lower lobe as described above. 2. Slightly smaller mesenteric lymph nodes/nodules yet still appreciated. 3. Slightly smaller right adrenal nodule yet still appreciated. 4. Innumerable hepatic hypodensities, possibly representing hepatic cysts without interval progressio n. 5. Slightly increased density of left renal cysts, possibly due to internal hemorrhage or proteinaceo us material, attention follow-up. Other interval changes and incidental findings as described above.
== END | disposition home or self-care (01) ==
LOC: RADCTMAIN 09:26
PROVIDERS: ATTEND Internal Medicine Hematology & Oncology
DX: C18.2 Malignant neoplasm of ascending colon (principal); R91.8 Other nonspecific abnormal finding of lung field; N28.1 Cyst of kidney, acquired
CPT/HCPCS: 82565; 84520; 71260; 74177; 36415; Q9967 ×2

== ENCOUNTER → 2021-09-26 | Outpatient (CLI) | payer OTHER ==
[2021-09-26 10:22] LABS: African American GFR (CKD) >90 (>60 ml/min/1.73 sqM); Blood Urea Nitrogen 9 mg/dL (9-20); Non-African American GFR(CKD) >90 (>60 ml/min/1.73 sqM)
--- NOTE | 2021-09-26 12:53 | CT ---
EXAMINATION TYPE: CT ChestAbdPelvis w con DATE OF EXAM: 09/26/2021 COMPARISON: 06/26/2021, 03/10/2021 HISTORY: 45-year-old male C18.2 colon cancer, Z03.89 ENCOUNTER FOR OBS TECHNIQUE: Contiguous axial scanning of the chest, abdomen, and pelvis performed with IV Contrast, pa tient injected with 70 mL of Isovue 300. Delayed images through the kidneys were obtained. Coronal/sa gittal reconstructions performed. CT DLP: 1643.5 mGycm Automated exposure control for dose reduction was used. FINDINGS: CHEST: Heart normal size with trace anterior basilar pericardial fluid. Aorta normal caliber with bovine configuration to the aortic arch. No thoracic lymphadenopathy by CT size criteria. Stable scattered scarring left lower lobe and posterior left upper lobe as well. Minimal emphysematou s change Stable 3 mm peripheral right lower lobe pulmonary nodule corresponding to previous metastatic nodule. The other tiny right lower lobe nodule is no longer appreciated. No new pulmonary nodules are identi fied. No consolidation or pleural effusion. ABDOMEN: Low-attenuation hepatic parenchyma suggesting fatty infiltration. Portal venous system is patent. Sta ble numerous hepatic hypodensities measuring up to 1.3 cm, likely hepatic cysts. Portal venous system is patent. No biliary ductal dilatation. Cholecystectomy clips. Right adrenal nodule measures 1.7 cm, unchanged from at least 03/10/2021. Left adrenal gland, spleen, right kidney, and pancreas show no gross abnormality. Redemonstrated intermediate density appearance to the 2 left-sided kidney cortical lesions measuring 1.5 cm laterally and 1.1 cm posteriorly. Slight change in size from 1.3 cm and 9 mm, previously and r espectively. This is compatible with interval enlargement of a couple millimeters. Continued attentio n on follow-up. No dilated small bowel, free fluid, or free air. Retroperitoneal nodes continue to decrease in sizer, for example, aortocaval now 6 mm versus 8 mm, pr eviously, axial image 75. No lymphadenopathy by size criteria. Mid mesenteric nodes also continue to improve. Some calcification has developed in a node in the righ t paramedian upper abdomen measuring up to 1.2 cm residual 1.5 cm, previously. Some residual scattere d borderline in size and nonenlarged nodes remain in the mid mesentery. Status post right hemicolectomy and ileocolonic anastomosis along the proximal transverse colon. No p ericolic inflammatory change. Oral contrast progressed to the rectum. PELVIS: Bladder distended. Pelvic phleboliths. No abnormal fluid collection in the pelvis or pelvic lymphaden opathy. BONES: Osseous destructive process. Mild multilevel degenerative disc disease, more marked at L5-S1. IMPRESSION: 1. NO EVIDENCE FOR DISEASE PROGRESSION. A RESIDUAL TINY 3 MM RIGHT LOWER LOBE PULMONARY NODULE REMAIN S. THE SECOND TINY NODULE IS NO LONGER APPRECIATED. 2. CONTINUED IMPROVEMENT IN THE RESIDUAL SMALL RETROPERITONEAL NODES. SCATTERED NONENLARGED AND BORDE RLINE SIZED MID MESENTERIC NODES REMAIN BUT ALSO SHOW CONTINUED IMPROVEMENT. LARGEST MEASURING 1.2 CM VERSUS 1.5 CM, PREVIOUSLY. 3. STABLE 1.7 CM RIGHT ADRENAL NODULE. 4. A COUPLE SMALL INDETERMINATE LEFT RENAL CORTICAL LESIONS HAVE INCREASED IN SIZE BY A COUPLE MILLIM ETERS, LARGEST 1.5 CM. CONTINUED ATTENTION ON FOLLOW-UP GIVEN THEIR INTERMEDIATE ATTENUATION. COMPLIC ATED CYSTS AND SMALL SOLID MASSES ARE BOTH IN THE DIFFERENTIAL AT THIS TIME. 5. Incidental: COPD with mild emphysema, hepatic steatosis, and previous right hemicolectomy.
== END | disposition home or self-care (01) ==
LOC: RADCTMAIN 08:52
PROVIDERS: ATTEND Internal Medicine Hematology & Oncology
DX: J43.9 Emphysema, unspecified (principal); N32.89 Other specified disorders of bladder; K76.0 Fatty (change of) liver, not elsewhere classified
CPT/HCPCS: 82565; 84520; 71260; 74177; 36415; Q9967 ×2

== ENCOUNTER → 2021-12-17 | Outpatient (CLI) | payer OTHER ==
[2021-12-17 08:28] LABS: African American GFR (CKD) >90 (>60 ml/min/1.73 sqM); Blood Urea Nitrogen 9 mg/dL (9-20); Non-African American GFR(CKD) >90 (>60 ml/min/1.73 sqM)
--- NOTE | 2021-12-17 11:17 | CT ---
EXAMINATION TYPE: CT ChestAbdPelvis w con DATE OF EXAM: 12/17/2021 INDICATION: Malignant neoplasm of ascending colon COMPARISON: 09/26/2021 CT DLP: 1902 mGycm CONTRAST: Performed with Oral Contrast and with IV Contrast, patient injected with 70 mL of Isovue 300. TECHNIQUE: Axial images at 5 mm thick sections. Reconstructed images in the coronal plane. Delayed images through the kidneys. FINDINGS: CT CHEST: Portion of the thyroid visualized is normal. There is a small nodule with stranding in the posterior medial left mid lung. Series 4 image 31. This measures 1.2 cm. There is a 0.4 cm posterior lateral right lung base nodule somewhat more prominent than prior examina tion. No enlarged mediastinal or hilar adenopathy is evident. The ascending aorta diameter at the level of the main pulmonary artery is 2.9 cm. The main pulmonary artery diameter at the bifurcation is 2.[address] ABDOMEN: Tiny retroperitoneal lymph nodes remain present. Enlarged adenopathy is not identified. There is a mildly prominent retrocrural lymph node measuring 0.8 cm which is enlarged by measurement criteria. This has enlarged from prior study. Liver: Multiple scattered small hypodensities are present, stable from comparison. These are too smal l to classify but may be related to hepatic cysts. Spleen: Normal Pancreas: Normal Adrenal glands: Right adrenal gland has an inferior 1.6 cm nodule present previously and stable. Left adrenal gland appears normal. Gallbladder: Surgical clips are present from previous cholecystectomy. Kidneys: No masses are evident. No hydronephrosis is present. There is a 1.5 cm exophytic cyst on t he posterior upper pole left kidney. There is a rounded higher density structure measuring 1.4 cm and 67 Hounsfield units on the lateral mid to inferior pole left kidney. This was present previously and appears stable Delayed images were obtained through the kidneys, which remain unremarkable. Aorta: Normal Inferior vena cava: Normal. CT PELVIS: There is resection of the ascending colon. Loops of bowel distended with oral contrast. Normal. Oral contrast extends to the distal colon. There are loops of bowel which are incompletely distended or la ck oral contrast limiting their evaluation. Appendix: Absent Urinary bladder: Normal. Genitourinary structures: Prostate appears unremarkable Osseous structures: No suspicious lytic or sclerotic lesions. Degenerative disc changes present L5-S1 . IMPRESSIONS: 1. Right lower lobe nodule minimally more prominent than prior examination. Consider recurrent metast asis at this level. 2. Enlarging retrocrural lymph node suspicious for metastatic disease. 3. Consider PET/CT for additional evaluation.
== END | disposition home or self-care (01) ==
LOC: RADCTMAIN 07:50
PROVIDERS: ATTEND Internal Medicine Hematology & Oncology
DX: C18.2 Malignant neoplasm of ascending colon (principal); R91.1 Solitary pulmonary nodule
CPT/HCPCS: 82565; 84520; 71260; 74177; 36415; Q9967 ×2

== ENCOUNTER → 2022-03-26 | Outpatient (CLI) | payer OTHER ==
[2022-03-26 13:11] LABS: African American GFR (CKD) >90 (>60 ml/min/1.73 sqM); Blood Urea Nitrogen 8 mg/dL (9-20); Non-African American GFR(CKD) >90 (>60 ml/min/1.73 sqM)
--- NOTE | 2022-03-26 14:17 | CT ---
EXAMINATION TYPE: CT ChestAbdPelvis w con CT DLP: 2241.60 mGycm, Automated exposure control for dose reduction was used. DATE OF EXAM: 03/26/2022 1:40 PM COMPARISON: Most recent recent chest abdomen pelvis CT 12/17/2021, 01/28/2019 CLINICAL INDICATION:Male, 46 years old with history of C18.2 MALIGNANT NEOPLASM OF ASCENDING COLON, o bs for mets. hx colon ca. Technique: Multiple axial images of the chest, abdomen, and pelvis were obtained. Two-dimensional cor onal and sagittal reconstructions were obtained. Contrast used:70 mL of Isovue 300 with IV Contrast, Oral contrast used: with Oral Contrast Findings: CHEST: LUNGS/ PLEURA: Left lower lobe streaky atelectasis and/or scarring is noted within the area of nodula r thickening. Overall nodular thickening more medially and inferiorly is increased in size now measur ing up to 8 mm in short axis previously 6 mm (series 5 image 52).. Area of more superiorly and medial in the left lower lobe measures similarly at 10 mm. (Series 5 image 31.) Right lower lobe pulmonary nodule measures 7 mm, previously 5 mm. AIRWAY: Patent and unremarkable. HEART: Size within normal limits. MEDIASTINUM: No gross evidence of adenopathy. VASCULATURE: No aortic aneurysm. MUSCULOSKELETAL: No acute osseous abnormalities. SOFT TISSUES/LYMPH NODES: Right chest wall Wvuuoe-m-Pjrx with tip terminating in the superior vena ca va. LOWER NECK: No significant findings. ABDOMEN: ABDOMEN LIVER: Scattered hypodensities throughout the liver are less well characterized on today's exam secon priscila to phase of contrast. The largest in the left hepatic lobe measuring 23 mm is similar to prior. GALLBLADDER AND BILE DUCTS: Unremarkable. PANCREAS: Unremarkable. SPLEEN: Unremarkable. ADRENAL GLANDS: Right adrenal nodule measuring 16 mm is similar to prior. KIDNEYS AND URETERS: No evidence of hydronephrosis or renal calculus. Indeterminate left renal cortic al cyst which is stable from prior measuring up to 1.2 cm on today's exam. PELVIS BLADDER: Unremarkable REPRODUCTIVE: Unremarkable. ABDOMEN & PELVIS STOMACH AND BOWEL: No evidence of bowel obstruction. Surgical changes with partial colectomy PERITONEUM: No evidence of pneumoperitoneum or free fluid. VASCULATURE: No evidence of aortic aneurysm. MUSCULOSKELETAL: No acute osseous abnormalities LYMPH NODES: Retroperitoneal lymph node (series 4 image 70 has increased in size now measuring 2.0 cm in short axis, previously 1.3 cm on 12/17/2021. Enlarging left retroperitoneal/perinephric lymph node measuring up to 9 mm in short axis (series 4 im age 84). Mesenteric lymph node measuring up to 9 mm is unchanged from 12/17/2021 (series 4 image 69). SOFT TISSUE/ABDOMINAL WALL: Fat-containing umbilical hernia. IMPRESSION: 1. Findings concerning for progressive disease with increase in size of: left lower lobe medial nodu lar thickening, right lower lobe pulmonary nodule, retroperitoneal lymphadenopathy. 2. Stable right adrenal gland nodule which is unchanged from 01/28/2019.
== END | disposition home or self-care (01) ==
LOC: RADCTMAIN 11:45
PROVIDERS: ATTEND Internal Medicine Hematology & Oncology
DX: C18.2 Malignant neoplasm of ascending colon (principal); E27.9 Disorder of adrenal gland, unspecified; R91.8 Other nonspecific abnormal finding of lung field; R59.0 Localized enlarged lymph nodes
CPT/HCPCS: 82565; 84520; 71260; 74177; 36415; Q9967

== ENCOUNTER → 2022-07-02 | Outpatient (CLI) | payer OTHER ==
--- NOTE | 2022-07-02 19:15 | CT ---
EXAMINATION TYPE: CT ChestAbdPelvis w con DATE OF EXAM: 07/02/2022 COMPARISON: Prior CT March 16, 2022 HISTORY: Metastatic Colon CA x3yrs currently on chemotherapy treatment. CT DLP: 2384.7 mGycm. Automated Exposure Control for Dose Reduction was Utilized. CONTRAST: CT scan of the thorax, abdomen and pelvis is performed with oral and with IV Contrast, patient inject ed with 100cc mL of Isovue 300. FINDINGS: LUNGS: There is posterior left mid to lower lung linear scarring redemonstrated measuring up to 7 mm in thickness similar to prior axial image 58 and 9 mm axial image 31. Additional posterior left upper lung linear scarring near image 25 is stable. Stable 5 mm peripheral right lower lobe nodule axial i mage 45. No concerning new pulmonary nodules or masses. There is no pleural effusion or pneumothora x seen. The tracheobronchial tree is patent. MEDIASTINUM: There is stable prominent but subcentimeter right tracheobronchial lymph node axial imag e 27. No new greater than 1 cm thoracic lymph nodes. No cardiomegaly or pericardial effusion is seen . LIVER/GB: Cholecystectomy clips. Liver is diffusely low dense consistent with marked fatty infiltrati on. Scattered heterogeneous hypodense lesions throughout the liver are redemonstrated. Largest left h epatic dome lateral segment measures 2.2 cm long axis similar to prior. PANCREAS: No significant abnormality is seen. SPLEEN: No significant abnormality is seen. ADRENALS: Stable 1.5 cm right adrenal mass axial image 61. KIDNEYS: No significant abnormality is seen. BOWEL: Oral contrast reaches level of the rectum. No suspicious small or large bowel dilatation. Surg ical changes from partial colectomy and small bowel anastomosis are redemonstrated. GENITAL ORGANS: No gross abnormality seen. LYMPH NODES: Improved lymph node anterior to the left renal vein measuring 2.7 x 1.5 cm current study axial image 40 versus 3.7 x 2.4 cm prior study image 71. No new greater than 1cm abdominal or pelvic lymph nodes are appreciated. OSSEOUS STRUCTURES: Itbf-dh-sgimrekw disc space narrowing with vacuum disc phenomenon at L5-S1 level redemonstrated. Slight scoliotic curvature is redemonstrated in the upper to mid thoracic spine OTHER: Small to moderate-sized fat-containing umbilical hernia redemonstrated. IMPRESSION: Partial positive treatment response as detailed above. Largest lymph node in the mid abd omen is decreased in size. Other areas of concern stable or improved. No new significant lesions iden tified.
== END | disposition home or self-care (01) ==
LOC: RADCTMAIN 16:54
PROVIDERS: ATTEND Internal Medicine Hematology & Oncology
DX: C18.2 Malignant neoplasm of ascending colon (principal); R21 Rash and other nonspecific skin eruption; I10 Essential (primary) hypertension; Z71.3 Dietary counseling and surveillance
CPT/HCPCS: 71260; 74177; Q9967

== ENCOUNTER → 2022-09-28 | Outpatient (CLI) | payer OTHER ==
[2022-09-28 11:18] LABS: African American GFR (CKD) >90 (>60 ml/min/1.73 sqM); Blood Urea Nitrogen 16 mg/dL (9-20); Non-African American GFR(CKD) >90 (>60 ml/min/1.73 sqM)
--- NOTE | 2022-09-28 13:10 | CT ---
EXAMINATION TYPE: CT abdomen pelvis w con DATE OF EXAM: 09/28/2022 COMPARISON: 03/26/22 HISTORY: colon ca CT DLP: 1804 mGycm CONTRAST: CT scan of the abdomen and pelvis is performed with Oral Contrast and with IV Contrast, patient injec benita with 100 mL of Isovue 300. FINDINGS: LUNG BASES-: No visible nodule. No infiltrate. LIVER/GB: No space occupying hepatic lesion. Biliary tree is of normal caliber. Hepatomegaly with und erlying steatosis. Gallbladder surgically absent. PANCREAS: No inflammation. No distinct mass. SPLEEN: No splenic enlargement. No lesion seen. ADRENALS: No nodule. No thickening. KIDNEYS/BLADDER: No hydronephrosis. No nephrolithiasis. No distinct renal mass. Urinary bladder g rossly unremarkable. BOWEL: Diffuse right-sided hemicolectomy with normal-appearing anastomosis. No evidence for recurrent or residual left colonic lesion. Normal bowel caliber. No inflammation. GENITAL ORGANS: No gross abnormality. LYMPH NODES: No greater than 1cm abdominal or pelvic lymph nodes are appreciated. AORTA: No significant abnormality. OSSEOUS STRUCTURES: No significant abnormality is seen. OTHER: No significant additional abnormality is seen. IMPRESSION: 1. No evidence for recurrent or metastatic disease. 2. Hepatomegaly with underlying hepatic steatosis.
== END | disposition home or self-care (01) ==
LOC: RADCTMAIN 10:46
PROVIDERS: ATTEND Internal Medicine Hematology & Oncology
DX: Z03.89 Encounter for observation for other suspected diseases and conditions ruled out (principal); C18.2 Malignant neoplasm of ascending colon; K76.0 Fatty (change of) liver, not elsewhere classified; R16.0 Hepatomegaly, not elsewhere classified
CPT/HCPCS: 82565; 84520; 74177; 36415; Q9967

== ENCOUNTER 2022-12-10 10:38 | Day surgery (SDC) | payer OTHER ==
[~2022-12-10 10:38] MED LIST: SODIUM CHLORIDE 0.9% 1,000 ML IV SCH
--- NOTE | 2022-12-10 13:10 | IR ---
Fluoroscopic portogram([facility]). HISTORY: Device malfunction. The patient presented to the [facility] with a Claire needle within the port. Preliminary fluoroscopy demonst rated the catheter to be intact. The catheter demonstrated multiple loops and kinks. IMPRESSION: 1. The catheter demonstrates multiple loops and is kinked in two positions.
== END 2022-12-10 11:35 | disposition home or self-care (01) ==
LOC: CATHCVL 10:38
PROVIDERS: ATTEND Radiology Diagnostic Radiology
DX: T82.594A Other mechanical complication of infusion catheter, initial encounter (principal); I10 Essential (primary) hypertension; Z87.891 Personal history of nicotine dependence; Z79.899 Other long term (current) drug therapy; Z91.030 Bee allergy status; Y84.0 Cardiac catheterization as the cause of abnormal reaction of the patient, or of later complication, without mention of misadventure at the time of the procedure
CPT/HCPCS: 36598

== ENCOUNTER 2023-01-07 13:37 | Day surgery (SDC) | payer OTHER ==
[~2023-01-07 13:37] MED LIST changes: +ACETAMINOPHEN TAB 500 MG TAB PO PRN; +DEXAMETHASONE SOD PHOSPHATE 4 MG/ML 1 ML VIAL IV ONE; +HEPARIN SODIUM,PORCINE/PF 5,000 UNIT/0.5 ML SYRINGE SQ PRN; +HYDROmorphone 0.5 MG/0.5 ML SYRINGE IVP PRN; +LACTATED RINGERS 1,000 ML IV SCH; +MIDAZOLAM 2 MG/2 ML VIAL IV PRN; +ONDANSETRON 4 MG/2 ML VIAL IVP ONE; +SCOPOLAMINE 1 MG/72 HR PATCH TRANSDERM ONE; -SODIUM CHLORIDE 0.9% 1,000 ML IV SCH
--- NOTE | 2023-01-07 14:21 | P.GSHP ---
History of Present Illness H&P Date: 01/07/23 Chief Complaint: Colon cancer 47-year-old male known to our service. Patient with metastatic colon cancer. Underwent previous Port-A-Cath placement right IJ approach. Recently had issues with the port. Fluoroscopy demonstrated the port was out of position and mostly in the distal internal jugular vein. Here for catheter replacement. Past Medical History Past Medical History: Cancer, GERD/Reflux, Hypertension Additional Past Medical History / Comment(s): chronic back pain, colitis. ASCENDING COLON CANCER History of Any Multi-Drug Resistant Organisms: None Reported Past Surgical History: Adenoidectomy, Cholecystectomy Additional Past Surgical History / Comment(s): LEFT LUNG BIOPSY, COLON RESECTION , med port, Past Anesthesia/Blood Transfusion Reactions: No Reported Reaction Smoking Status: Former smoker - Past Family History Father Family Medical History: Diabetes Mellitus Additional Family Medical History / Comment(s): First cousin has been diagnosed with Chrons, Great Uncle had colon cancer. Mother Family Medical History: Thyroid Disorder Medications and Allergies Home Medications Medication Instructions Recorded Confirmed Type Colestipol HCl 1 gm PO DAILY 12/09/22 01/04/23 History Valsartan/Hydrochlorothiazide 1 each PO DAILY 12/09/22 01/04/23 History [Diovan Hct 160-12.5 mg Tab] amLODIPine BESYLATE 5 mg PO DAILY 12/09/22 01/04/23 History methocarbamoL [Methocarbamol] 1 tab PO DAILY 12/09/22 01/04/23 History traMADol HCL 50 mg PO Q6H PRN 12/09/22 01/04/23 History Cholecalciferol [Vitamin D3 (25 50 mcg PO DAILY 01/04/23 01/04/23 History Mcg = 1000 Iu)] Ibuprofen [Motrin Ib] 800 mg PO DIRECTED PRN 01/04/23 01/04/23 History Omeprazole 40 mg PO DAILY 01/04/23 01/04/23 History Super B Complex 1 tab PO DAILY 01/04/23 01/04/23 History Allergies Allergy/AdvReac Type Severity Reaction Status Date / Time bee venom protein (honey bee) Allergy Anaphylaxis Verified 01/07/23 13:50 Surgical - Exam Vital Signs Temp Pulse Resp BP Pulse Ox 98.5 F 96 16 157/76 96 01/07/23 13:54 01/07/23 13:54 01/07/23 13:54 01/07/23 13:54 01/07/23 13:54 Physical exam: General: Well-developed, well-nourished HEENT: Normocephalic, sclerae nonicteric Abdomen: Nontender, nondistended Extremities: No edema Neuro: Alert and oriented Assessment and Plan (1) Colon cancer metastasized to liver Narrative/Plan: Will proceed with Port-A-Cath removal and replacement at this time. Risks of bleeding, infection, DVT, pneumothorax, catheter malfunction, anesthesia related complications were discussed. The patient understands and wishes to proceed. Status: Acute Code(s): C18.9 - MALIGNANT NEOPLASM OF COLON, UNSPECIFIED; C78.7 - SECONDARY MALIG NEOPLASM OF LIVER AND INTRAHEPATIC BILE DUCT SNOMED Code(s): 25483590
[2023-01-07] MEDS ORDERED: fentaNYL (PF) 50 MCG/ML 2 ML AMP ONE (14:31)
[2023-01-07] MEDS ORDERED: KETAMINE HCL IN 0.9 % NACL 50 MG/5 ML SYRINGE ONE (14:31)
[2023-01-07] MEDS ORDERED: LIDOCAINE 1% INJ 10MG/ML (20 ML MDV) ONE (14:31)
[2023-01-07] MEDS ORDERED: MIDAZOLAM 2 MG/2 ML VIAL ONE (14:31)
[2023-01-07] MEDS ORDERED: PROPOFOL 10 MG/ML 20 ML VIAL IV ONE (14:31)
[2023-01-07] MEDS ORDERED: KETOROLAC 30 MG/ML 1 ML VIAL ONE (14:31)
[2023-01-07] MEDS ORDERED: PHENYLEPHRINE-0.9% NACL SYG 1,000 MCG/10 ML SYRINGE ONE (14:31)
[2023-01-07] MEDS ORDERED: SUCCINYLCHOLINE CHLORIDE 200 MG/10 ML VIAL IV ONE (14:31)
[2023-01-07] MEDS ORDERED: LIDOCAINE 1% INJ 10MG/ML (20 ML MDV) SQ ONE (14:56)
--- NOTE | 2023-01-07 15:46 | P.OP ---
Date of Procedure: 01/07/23 Procedure(s) Performed: PREOPERATIVE DIAGNOSIS: Port-A-Cath malfunction, colon cancer POSTOPERATIVE DIAGNOSIS: Same PROCEDURE: Port-A-Cath removal and replacement with fluoroscopic and ultrasound guidance SURGEON: Monique EBL: Minimal ANESTHESIA: General COMPLICATIONS: None OPERATIVE PROCEDURE: Patient was brought and placed on the operative table in the supine position. The patient was placed under general anesthesia at that time. The chest and neck were prepped and draped in usual sterile fashion. The previous port incision was re-incised laterally. The old port was removed without difficulty. A new port pocket was made lateral to the previous port pocket. The ultrasound probe was used to identify the location of the right internal jugular vein. The skin was localized with lidocaine. The Seldinger needle was advanced into the IJ under ultrasound guidance. The wire was advanced through the needle under fluoroscopic guidance into the superior vena cava. The 8-Italian catheter was tunneled from the wire entrance site to the port pocket. The port was then connected to the catheter. The dilator introducer was threaded over the guidewire. The guidewire and dilator were then removed. The catheter was advanced through the introducer and introducer was then removed. The tip was seen to be in the right atrial junction via fluoroscopy. A picture of the radiograph showing the tip at the right atrial junction was taken. Port was flushed with both saline and a Hep-Lock solution. There was good flow both in and out of the port. The port was sutured in underlying tissues using 3-0 silk sutures. The subcutaneous tissues were reapproximated using 3-0 Vicryl sutures and the skin at both locations using 4-0 Monocryl sutures. Skin glue and sterile dressings then applied. DISPOSITION: Stable to recovery room
--- NOTE | 2023-01-07 16:05 | XR ---
EXAMINATION TYPE: XR chest 1V portable DATE OF EXAM: 01/07/2023 Comparison: None Clinical History: 47-year-old male Mediport placement Findings: Heart is enlarged. Diminished lung volumes. Diffuse interstitial opacities. No sizable pleural effusi on. Right anterior chest wall injection port with catheter tip at the upper right atrium. Impression: 1. Cardiomegaly with diffuse interstitial opacity and hypoventilatory changes. Correlate for CHF with pulmonary vascular congestion. 2. Right anterior chest wall injection port with catheter tip in the upper right atrium.
[2023-01-07 16:07] VITALS: TEMP 96.9
--- NOTE | 2023-01-07 16:08 | FL ---
EXAMINATION TYPE: FL guided central line placement DATE OF EXAM: 01/07/2023 FLUOROSCOPY Fluoroscopy time of 16 seconds was used during right-sided Port-A-Cath insertion. 2 image/s document /s the procedure. DAP=2.7066 mGycm2.
[2023-01-07 16:24] VITALS: RESP 16
[2023-01-07 17:12] VITALS: BP 123/66; PULSE 87
== END 2023-01-07 17:35 | disposition home or self-care (01) ==
LOC: OR 13:37
PROVIDERS: ATTEND Surgery
DX: T82.898A Other specified complication of vascular prosthetic devices, implants and grafts, initial encounter (principal); C18.2 Malignant neoplasm of ascending colon; G89.29 Other chronic pain; K21.9 Gastro-esophageal reflux disease without esophagitis; I11.9 Hypertensive heart disease without heart failure; Z87.891 Personal history of nicotine dependence; Z90.49 Acquired absence of other specified parts of digestive tract; Z91.030 Bee allergy status; Y83.8 Other surgical procedures as the cause of abnormal reaction of the patient, or of later complication, without mention of misadventure at the time of the procedure
CPT/HCPCS: 77001; 71045; 36590; C1788; J2250; J0330; J1100; J0690; J2405; J2001; J3010; J1885; J1642; J2704; J1644; J2371

== ENCOUNTER → 2023-03-11 | Outpatient (CLI) | payer OTHER ==
[2023-03-11 10:45] LABS: African American GFR (CKD) >90 (>60 ml/min/1.73 sqM); Blood Urea Nitrogen 15 mg/dL (9-20); Non-African American GFR(CKD) >90 (>60 ml/min/1.73 sqM)
--- NOTE | 2023-03-11 13:22 | CT ---
EXAMINATION TYPE: CT abdomen pelvis w con CT DLP: 2134.90 mGycm, Automated exposure control for dose reduction was used. DATE OF EXAM: 03/11/2023 12:16 PM COMPARISON: CT abdomen pelvis most recent from 09/28/2022, 07/02/2022. CLINICAL INDICATION:Male, 47 years old with history of C18.2 MALIGNANT NEOPLASM OF ASCENDING COLON; h x of colon ca. obs for mets. TECHNIQUE: Axial CT of the ;CT abdomen pelvis w con;Sagittal and coronal reformats were created on a separate workstation. Contrast used:100ml mL of Isovue 300 with IV Contrast, (none if empty) Oral contrast used: with Oral Contrast (none if empty) FINDINGS: LOWER CHEST: Pulmonary nodules: 5 mm pulmonary nodule series 4 image 7, 5 mm image 3. 10 mm image 10, 4 mm image 5 The 10 mm nodule was previously 6 mm. No focal consolidation or pneumothorax visualized. ABDOMEN LIVER: Diffuse low-attenuation to the liver parenchyma. GALLBLADDER AND BILE DUCTS: The gallbladder surgically absent. PANCREAS: Unremarkable. SPLEEN: Unremarkable. ADRENAL GLANDS: Stable right adrenal nodule measuring 11 mm. KIDNEYS AND URETERS: No evidence of hydronephrosis or renal calculus. The ureters are unremarkable. PELVIS BLADDER: Unremarkable REPRODUCTIVE: Unremarkable. ABDOMEN & PELVIS STOMACH AND BOWEL: No evidence of bowel obstruction. Postsurgical changes of the colon. No evidence f or recurrence at the anastomotic site. PERITONEUM/RETROPERITONEUM: No evidence of pneumoperitoneum or free fluid. VASCULATURE: No evidence of aortic aneurysm. MUSCULOSKELETAL: No acute osseous abnormalities LYMPH NODES: No gross evidence for lymphadenopathy. SOFT TISSUE/ABDOMINAL WALL: Unremarkable IMPRESSION: 1. Post surgical changes the colon. No evidence for abnormal soft tissue at the surgical anastomosis . 2. Scattered pulmonary nodules seen in the lung base which appear to have been increasing in size co mpared to 09/28/2022 and are concerning for recurrence metastatic disease. Consider for short-term foll ow-up in 3-6 months.
== END | disposition home or self-care (01) ==
LOC: RADCTMAIN 10:15
PROVIDERS: ATTEND Internal Medicine Hematology & Oncology
DX: C18.2 Malignant neoplasm of ascending colon (principal); Z03.89 Encounter for observation for other suspected diseases and conditions ruled out; R91.8 Other nonspecific abnormal finding of lung field; Z98.890 Other specified postprocedural states
CPT/HCPCS: 82565; 84520; 74177; 36415; Q9967

== ENCOUNTER → 2023-03-30 | Outpatient (CLI) | payer OTHER ==
--- NOTE | 2023-03-30 16:00 | MR ---
EXAMINATION TYPE: MR brain wo/w con DATE OF EXAM: 03/30/2023 COMPARISON: 12/19/2020 HISTORY: Confusion, hx of colon cancer CONTRAST: Performed utilizing 11 mL intravenous Gadavist gadolinium contrast. TECHNIQUE: Multiplanar, multiecho imaging on a 3.0 Crystal magnet is performed through the brain. Stud y is performed within 24 hours of arrival to the hospital. The craniovertebral junction is normal. The pituitary is normal. Diffusion-weighted imaging is performed. No abnormal hyperintensity is present to suggest an acute i ntracranial infarct or acute ischemic change. Signal appears unremarkable. Ventricles and sulci are appropriate for the patient age. Following contrast, no abnormal enhancement. IMPRESSION: 1. No suspicious changes to suggest metastatic disease. 2. No acute intracranial process.
== END | disposition home or self-care (01) ==
LOC: RADMRIMAIN 06:14
PROVIDERS: ATTEND Internal Medicine Hematology & Oncology
DX: C18.2 Malignant neoplasm of ascending colon (principal); R41.82 Altered mental status, unspecified
CPT/HCPCS: 70553; A9585

== ENCOUNTER → 2023-04-01 | Outpatient (CLI) | payer OTHER ==
--- NOTE | 2023-04-01 23:29 | XR ---
EXAMINATION TYPE: XR thoracic spine 2V DATE OF EXAM: 04/01/2023 COMPARISON: 11/02/2018 HISTORY: Back pain TECHNIQUE: Three-view thoracic spine FINDINGS: There is a focal scoliosis within the upper thoracic spine with a convexity at T5-6 to the right. There are 12 thoracic type vertebral bodies. Pedicles are intact. Disc heights appear preserved. Vert ebral body heights are preserved. IMPRESSION: 1. Upper thoracic spine scoliosis. 2. No acute osseous abnormality
--- NOTE | 2023-04-01 23:31 | XR ---
EXAMINATION TYPE: XR lumbar spine 2 or 3V DATE OF EXAM: 04/01/2023 COMPARISON: 03/24/2011 HISTORY: Back pain TECHNIQUE: 2V lumbar spine FINDINGS: There are 5 lumbar-type vertebral bodies. Pedicles are intact. There is loss of disc height L5-S1 with some vacuum disc phenomenon. This is new from comparison. Remaining disc heights are pres erved. Vertebral body heights are preserved. Alignment is preserved. IMPRESSION: 1. Degenerative disc change L5-S1.
== END | disposition home or self-care (01) ==
LOC: RADXRMAIN 10:27
PROVIDERS: ATTEND Internal Medicine
DX: M47.815 Spondylosis without myelopathy or radiculopathy, thoracolumbar region (principal); M51.37 Other intervertebral disc degeneration, lumbosacral region
CPT/HCPCS: 72070; 72100

== ENCOUNTER → 2023-06-02 | Outpatient (CLI) | payer MEDICARE, OTHER ==
[2023-06-02 14:11] LABS: African American GFR (CKD) >90 (>60 ml/min/1.73 sqM); Blood Urea Nitrogen 13 mg/dL (9-20); Non-African American GFR(CKD) >90 (>60 ml/min/1.73 sqM)
--- NOTE | 2023-06-02 15:12 | CT ---
EXAMINATION: CT CHEST, ABDOMEN AND PELVIS WITH IV CONTRAST DATE OF EXAMINATION: 06/02/2023. COMPARISON: CT abdomen and pelvis on 03/11/2023. CT chest, abdomen and pelvis on 07/02/2022. INDICATION: Colon cancer. PROCEDURE: Axial CT of the chest, abdomen and pelvis was performed following the intravenous adminis tration of 100 ml Isovue 300. Coronal and sagittal reformats were performed. CT dose lowering techni ques were used, to include: automated exposure control, adjustment for patient size, and/or use of it erative reconstruction. FINDINGS: CHEST: CHEST WALL: There is a right-sided Mediport with the catheter tip near the atrial caval junction. Mediastinum and Aniya: There is no axillary, mediastinal or hilar lymphadenopathy. Pleural and Pericardial spaces: There are no pleural or pericardial effusions. Cardiovascular: The thoracic aorta is normal in size without evidence of aneurysm or dissection. Pulmonary Artery: There are no central pulmonary arterial filling defects. Lung Parenchyma and Airways: There is a 3.7 cm right upper lobe pulmonary nodule on series 3 image 19 . This was not seen on the previous examination. There is a new 8 mm nodule in the right upper lobe o n series 3 image 27. There is a new right lower lobe nodule measuring 4.7 mm on series 3 image 30. Th ere is a 4 mm nodule in the right lower lobe on series 3 image 32. This was not clearly identified on the previous examination as well. Several additional new pulmonary nodules are seen within the right lower lobe measuring up to 1 cm in diameter on series 3 image 45. This nodule abuts the pleural surf severiano. There is a new 3 mm pleural-based nodule in the left upper lobe on series 3 image 12. There is a new 4 mm nodule in the left upper lobe on series 3 image 16. There is a linear parenchymal abnormali ty which appears to represent some surgical changes in the posterior aspect of the left upper lobe wh ich is unchanged. New nodule in the left upper lobe measuring 6.7 mm on series 3 image 25. New left l ower lobe pulmonary nodule measuring 5.9 mm on series 3 image 43. There is no focal area of consolida tion. ABDOMEN: Liver and Biliary system: There is diffuse decreased attenuation of the liver which is compatible wi th fatty liver infiltration. There are some scattered hypoattenuating lesions within the left lobe of the liver which appear unchanged. A few subtle hypoattenuating lesions in the right lobe of the live r are also unchanged. Adrenal glands: Unchanged 1.1 cm right adrenal nodule. The left adrenal appears unremarkable. Kidneys and ureters: Normal. Spleen: Normal. Pancreas: Normal. Gallbladder: Surgically absent. Lymph nodes, Peritoneum and mesentery: There is no mesenteric or retroperitoneal lymphadenopathy. Gastrointestinal tract: There are no dilated loops of bowel or free intraperitoneal air. . Prior ri ght colectomy is unchanged with no local recurrent disease. Aorta/IVC: Aorta normal. No aortic aneurysm or dissection. IVC normal. Abdominal wall: Small fat-containing umbilical hernia.. PELVIS: Fluid: There is no free fluid in the pelvis. Lymph Nodes: There is no pelvic or inguinal lymphadenopathy.. Urinary bladder: Normal. BONES: There are no osseous destructive lesions.. ADDITIONAL SIGNIFICANT FINDINGS: None. IMPRESSION: 1. Multiple new pulmonary nodules which likely represent metastatic disease. 2. Diffuse hepatic steatosis. 3. Multiple hypoattenuating lesions are poorly evaluated on this examination, however are likely unch anged. 4. Unchanged right adrenal nodule.
== END | disposition home or self-care (01) ==
LOC: RADCTMAIN 12:52
PROVIDERS: ATTEND Internal Medicine Hematology & Oncology
DX: K76.0 Fatty (change of) liver, not elsewhere classified (principal); E27.8 Other specified disorders of adrenal gland; R91.8 Other nonspecific abnormal finding of lung field; C18.2 Malignant neoplasm of ascending colon; I10 Essential (primary) hypertension; R21 Rash and other nonspecific skin eruption; Z71.3 Dietary counseling and surveillance; Z90.49 Acquired absence of other specified parts of digestive tract
CPT/HCPCS: 82565; 84520; 71260; 74177; 36415; Q9967

== ENCOUNTER 2023-08-13 08:52 | Emergency (ER) | payer MEDICARE, OTHER ==
--- NOTE | 2023-08-13 09:25 | ED ---
General Adult HPI - General Chief complaint: Abdominal Pain Stated complaint: Abd pain Time Seen by Provider: 08/13/23 09:06 Source: patient, RN notes reviewed Mode of arrival: ambulatory Limitations: no limitations - History of Present Illness Initial comments: Patient is a 47-year-old male presenting to the emergency department abdominal problems. Onset of symptoms was 5 days ago. Patient is on oral chemotherapy for history of intestinal cancer that was surgically removed however new lesions have been found in the lungs. Patient does have nausea. No vomiting. Patient has abdominal discomfort diffusely. Patient is having diarrhea multiple times per day. - Related Data Home Medications Medication Instructions Recorded Confirmed Colestipol HCl 1 gm PO DAILY 12/09/22 08/13/23 Valsartan/Hydrochlorothiazide 1 tab PO DAILY 12/09/22 08/13/23 [Diovan Hct 160-12.5 mg Tab] amLODIPine BESYLATE 5 mg PO DAILY 12/09/22 08/13/23 methocarbamoL [Methocarbamol] 500 - 1,000 mg PO TID PRN 12/09/22 08/13/23 traMADol HCL 50 mg PO Q6H PRN 12/09/22 08/13/23 Omeprazole 40 mg PO DAILY 01/04/23 08/13/23 ALPRAZolam [Xanax] 0.25 mg PO Q8H PRN 08/13/23 08/13/23 Cholecalciferol (Vitamin D3) 50 mcg PO DAILY 08/13/23 08/13/23 [Vitamin D3 (50 Mcg = 2000 Iu)] Fruquintinib [Fruzaqla] 5 mg PO DIRECTED 08/13/23 08/13/23 HYDROcodone/APAP 10-325MG [[place] 1 tab PO Q6HR PRN 08/13/23 08/13/23 10-325] Vitamin B Complex W/ Vitamin C 1 cap PO DAILY 08/13/23 08/13/23 Allergies Allergy/AdvReac Type Severity Reaction Status Date / Time bee venom protein (honey bee) Allergy Anaphylaxis Verified 08/13/23 10:50 Review of Systems ROS Statement: Those systems with pertinent positive or pertinent negative responses have been documented in the HPI. ROS Other: All systems not noted in ROS Statement are negative. Constitutional: Denies: fever Eyes: Denies: eye pain ENT: Denies: ear pain Respiratory: Denies: cough, dyspnea Gastrointestinal: Reports: as per HPI, abdominal pain, nausea, diarrhea Musculoskeletal: Denies: back pain Past Medical History Past Medical History: Cancer, Hypertension Additional Past Medical History / Comment(s): Colon Cancer ; Lung Cancer History of Any Multi-Drug Resistant Organisms: None Reported Past Surgical History: Adenoidectomy, Cholecystectomy Additional Past Surgical History / Comment(s): LEFT LUNG BIOPSY, COLON RESECTION , med port, Past Anesthesia/Blood Transfusion Reactions: No Reported Reaction Past Psychological History: Anxiety, Bipolar Smoking Status: Current every day smoker Past Alcohol Use History: None Reported Past Drug Use History: None Reported - Past Family History Father Family Medical History: Diabetes Mellitus Additional Family Medical History / Comment(s): First cousin has been diagnosed with Chrons, Great Uncle had colon cancer. Mother Family Medical History: Thyroid Disorder General Exam Limitations: no limitations General appearance: alert, in no apparent distress Head exam: Present: normocephalic Eye exam: Present: normal appearance Respiratory exam: Present: normal lung sounds bilaterally Cardiovascular Exam: Present: regular rate, normal rhythm GI/Abdominal exam: Present: soft, tenderness (Mild diffuse tenderness to palpation), diminished bowel sounds. Absent: distended, guarding, rebound, rigid, pulsatile mass Extremities exam: Present: normal inspection Neurological exam: Present: alert Psychiatric exam: Present: normal affect, normal mood Skin exam: Present: normal color Course Vital Signs 08/13/23 08:57 Temperature 98.2 F Pulse Rate 96 Respiratory 18 Rate Blood Pressure 140/72 O2 Sat by Pulse 97 Oximetry Medical Decision Making - Medical Decision Making Was pt. sent in by a medical professional or institution (, PA, [employer]ACH, urgent care, hospital, or fpc...) When possible be specific @ -No Did you speak to anyone other than the patient for history (EMS, parent, family, police, friend...)? What history was obtained from this source @ -No Did you review nursing and triage notes (agree or disagree)? Why? @ -I reviewed and agree with nursing and triage notes Were old charts reviewed (outside hosp., previous admission, EMS record, old EKG, old radiological studies, urgent care reports/EKG's, fpc records)? Report findings @ -No old charts were reviewed Differential Diagnosis (chest pain, altered mental status, abdominal pain women, abdominal pain men, vaginal bleeding, weakness, fever, dyspnea, syncope, headache, dizziness, GI bleed, back pain, seizure, CVA, palpatations, mental health, musculoskeletal)? @ -Differential Abdominal Pain Men: Appendicitis, cholecystitis, diverticulosis, ischemic bowel, pancreatitis, hepatitis, UTI, gastroenteritis, AAA, incarcerated hernia, bowel obstruction, constipation, inflammatory bowel, hepatitis, peptic ulcer disease, splenic infarction, perforated viscus, testicular torsion, this is not meant to be an all-inclusive list EKG interpreted by me (3pts min.). @ -As above X-rays interpreted by me (1pt min.). @ -None done CT interpreted by me (1pt min.). @ -CT scan of abdomen and pelvis shows some thickening of the small intestine consistent with enteritis. Nodules and lesions as noted previously. U/S interpreted by me (1pt. min.). @ -None done What testing was considered but not performed or refused? (CT, X-rays, U/S, labs)? Why? @ -None What meds were considered but not given or refused? Why? @ -None Did you discuss the management of the patient with other professionals (professionals i.e. , PA, [employer]ACH, lab, RT, psych nurse, social worker aide, airport ramp attendant, teacher, air crew officer, counseling case manager)? Give summary @ -No Was smoking cessation discussed for >3mins.? @ -No Was critical care preformed (if so, how long)? @ -No Were there social determinants of health that impacted care today? How? (Homelessness, low income, unemployed, alcoholism, drug addiction, transportation, low edu. Level, literacy, decrease access to med. care, [facility], rehab)? @ -No Was there de-escalation of care discussed even if they declined (Discuss DNR or withdrawal of care, Hospice)? DNR status @ -No What co-morbidities impacted this encounter? (DM, HTN, Smoking, COPD, CAD, Cancer, CVA, ARF, Chemo, Hep., AIDS, mental health diagnosis, sleep apnea, morbid obesity)? @ -Bowel and lung cancer Was patient admitted / discharged? Hospital course, mention meds given and route, prescriptions, significant lab abnormalities, going to OR and other pertinent info. @ -Patient reevaluated and feeling better. Patient is updated on results. Patient would like to be discharged home. Patient is agreeable with close follow-up with his oncologist. Patient offered antibiotics however refuses at this time. Undiagnosed new problem with uncertain prognosis? @ -No Drug Therapy requiring intensive monitoring for toxicity (Heparin, Nitro, Insulin, Cardizem)? @ -No Were any procedures done? @ -No Diagnosis/symptom? @ -Abdominal pain, diarrhea, dehydration Acute, or Chronic, or Acute on Chronic? @ -Acute, acute, acute Uncomplicated (without systemic symptoms) or Complicated (systemic symptoms)? @ -Default Side effects of treatment? @ -No Exacerbation, Progression, or Severe Exacerbation? @ -No Poses a threat to life or bodily function? How? (Chest pain, [place], [place], pneumonia, PE, COPD, DKA, ARF, appy, cholecystitis, CVA, Diverticulitis, Homicidal, Suicidal, threat to staff... and all critical care pts) @ -No - Lab Data Result diagrams: 08/13/23 10:04 08/13/23 10:04 Lab Results 08/13/23 08/13/23 08/13/23 Range/Units 10:04 10:04 10:04 WBC 6.9 (3.8-10.6) k/uL RBC 5.34 (4.30-5.90) m/uL Hgb 15.9 (13.0-17.5) gm/dL Hct 49.2 (39.0-53.0) % MCV 92.1 (80.0-100.0) fL MCH 29.8 (25.0-35.0) pg MCHC 32.3 (31.0-37.0) g/dL RDW 13.6 (11.5-15.5) % Plt Count 250 (150-450) k/uL MPV 9.0 Neutrophils % 71 % Lymphocytes % 18 % Monocytes % 7 % Eosinophils % 2 % Basophils % 0 % Neutrophils # 4.9 (1.3-7.7) k/uL Lymphocytes # 1.2 (1.0-4.8) k/uL Monocytes # 0.5 (0-1.0) k/uL Eosinophils # 0.1 (0-0.7) k/uL Basophils # 0.0 (0-0.2) k/uL PT 10.1 (10.0-12.5) sec INR 0.9 (<1.2) APTT 27.8 (22.0-30.0) sec Sodium 139 (137-145) mmol/L Potassium 4.1 (3.5-5.1) mmol/L Chloride 108 H (98-107) mmol/L Carbon Dioxide 23 (22-30) mmol/L Anion Gap 8 mmol/L BUN 28 H (9-20) mg/dL Creatinine 1.22 (0.66-1.25) mg/dL Est GFR (CKD-EPI)AfAm 82 (>60 ml/min/1.73 sqM) Est GFR (CKD-EPI)NonAf 71 (>60 ml/min/1.73 sqM) Glucose 106 H (74-99) mg/dL Calcium 10.0 (8.4-10.2) mg/dL Total Bilirubin 1.0 (0.2-1.3) mg/dL AST 33 (17-59) U/L ALT 55 H (4-49) U/L Alkaline Phosphatase 76 (38-126) U/L Total Protein 7.7 (6.3-8.2) g/dL Albumin 4.1 (3.5-5.0) g/dL Amylase 60 (30-110) U/L Lipase 157 (23-300) U/L Disposition Clinical Impression: Enteritis Disposition: HOME SELF-CARE Instructions (If sedation given, give patient instructions): Enteritis (ED) Additional Instructions: Please do follow-up with your primary care physician and oncologist in the next couple of days for recheck. Return for not tolerating oral intake, increased pain, fevers, worsening or changing symptoms or other concerns. Is patient prescribed a controlled substance at d/c from ED?: No Referrals: Rubia Dominguez MD [Primary Care Provider] - 1-2 days Chadwick Peralta MD [STAFF PHYSICIAN] - 1-2 days Time of Disposition: 12:06
[2023-08-13 09:32] VITALS: RESP 18
[2023-08-13] MEDS: SODIUM CHLORIDE 0.9% 1,000 ML IV STA (10:01)
[2023-08-13] MEDS: FAMOTIDINE 20 MG/2 ML VIAL IV STA (10:01)
[2023-08-13] MEDS: MORPHINE SULFATE 4 MG/ML SYRINGE IVP STA (10:02)
[2023-08-13] MEDS: ONDANSETRON 4 MG/2 ML VIAL IVP STA (10:02)
[2023-08-13 10:23] LABS: Basophils % (A) 0 %; Eosinophils # (A) 0.1 k/uL (0-0.7); Eosinophils % (A) 2 %; HCT 49.2 % (39.0-53.0); HGB 15.9 gm/dL (13.0-17.5); Lymphocytes # (A) 1.2 k/uL (1.0-4.8); Lymphocytes % (A) 18 %; MCH 29.8 pg (25.0-35.0); MCHC 32.3 g/dL (31.0-37.0); MCV 92.1 fL (80.0-100.0); Monocytes # (A) 0.5 k/uL (0-1.0); Monocytes % (A) 7 %; Neutrophils # (A) 4.9 k/uL (1.3-7.7); Neutrophils % (A) 71 %; Platelet Count 250 k/uL (150-450); RBC 5.34 m/uL (4.30-5.90); RDW 13.6 % (11.5-15.5); WBC 6.9 k/uL (3.8-10.6)
[2023-08-13 10:31] LABS: INR 0.9 (<1.2); Partial Thromboplastin Time 27.8 sec (22.0-30.0); Prothrombin Time 10.1 sec (10.0-12.5)
[2023-08-13 10:49] LABS: ALT 55 U/L (4-49); AST 33 U/L (17-59); African American GFR (CKD) 82 (>60 ml/min/1.73 sqM); Albumin 4.1 g/dL (3.5-5.0); Alkaline Phosphatase 76 U/L (38-126); Amylase 60 U/L (30-110); Anion Gap 8 mmol/L; Blood Urea Nitrogen 28 mg/dL (9-20); Carbon Dioxide 23 mmol/L (22-30); Chloride 108 mmol/L (98-107); Glucose 106 mg/dL (74-99); Lipase 157 U/L (23-300); Non-African American GFR(CKD) 71 (>60 ml/min/1.73 sqM); Potassium 4.1 mmol/L (3.5-5.1); Sodium 139 mmol/L (137-145); Total Protein 7.7 g/dL (6.3-8.2)
--- NOTE | 2023-08-13 11:42 | CT ---
EXAMINATION TYPE: CT abdomen pelvis w con DATE OF EXAM: 08/13/2023 COMPARISON: 06/02/2023 HISTORY: bloating, history of colon CA and lung CA CT DLP: 1540.1 mGycm CONTRAST: CT scan of the abdomen and pelvis is performed without Oral Contrast and with IV Contrast, patient in jected with 100 mL of Isovue 300. FINDINGS: LUNG BASES-: Basilar pulmonary nodules redemonstrated. LIVER/GB: The gallbladder is surgically absent. Hepatic steatosis. Hypoattenuating hepatic lesions pe rsist likely reflecting metastatic to liver disease. Biliary tree is of normal caliber. PANCREAS: No inflammation. No distinct mass. SPLEEN: No splenic enlargement. No lesion seen. ADRENALS: Stable right adrenal nodule measuring 1.2 cm. No thickening. KIDNEYS/BLADDER: No hydronephrosis. No nephrolithiasis. No distinct renal mass. Urinary bladder g rossly unremarkable. BOWEL: Mild small bowel wall thickening may reflect changes of enteritis. Changes of right hemicolect rajendra with anastomosis appearing intact. No evidence for tumor recurrence. No obstructive change presen t. GENITAL ORGANS: No gross abnormality. LYMPH NODES: Para-aortic paracaval lymph nodes measuring up to 1.3 cm. AORTA: No significant abnormality. OSSEOUS STRUCTURES: No significant abnormality is seen. OTHER: No significant additional abnormality is seen. IMPRESSION: 1. Proximal small bowel wall thickening may reflect infectious enteritis. Correlate clinically. 2. Pulmonary nodules, hepatic lesions and retroperitoneal adenopathy as noted previously.
[2023-08-13 12:26] VITALS: BP 122/75; PULSE 88; TEMP 98.3
== END 2023-08-13 12:14 | disposition home or self-care (01) ==
LOC: EC 08:52
DX: K52.9 Noninfective gastroenteritis and colitis, unspecified (principal); E86.0 Dehydration; F17.200 Nicotine dependence, unspecified, uncomplicated; Z91.030 Bee allergy status; Z90.49 Acquired absence of other specified parts of digestive tract
CPT/HCPCS: 36415; 80053; 82150; 83690; 85025; 85610; 85730; 74177; 99284; 96374; 96375 ×2; 96361 ×2; J2270; J2405; J3490; Q9967

== ENCOUNTER → 2023-10-01 | Outpatient (CLI) | payer MEDICARE, OTHER ==
[2023-10-01 10:44] LABS: African American GFR (CKD) >90 (>60 ml/min/1.73 sqM); Blood Urea Nitrogen 11 mg/dL (9-20); Non-African American GFR(CKD) >90 (>60 ml/min/1.73 sqM)
--- NOTE | 2023-10-01 22:02 | CT ---
EXAMINATION TYPE: CT ChestAbdPelvis w con CT DLP: 1902 mGycm, Automated exposure control for dose reduction was used. DATE OF EXAM: 10/01/2023 12:54 PM COMPARISON: 08/13/2023 CLINICAL INDICATION:Male, 47 years old with history of C18.2 MALIGNANT NEOPLASM OF ASCENDING COLON; P HH, colon ca Technique: CT ChestAbdPelvis w con; Multiple axial images were obtained. Two-dimensional coronal and sagittal reconstructions were obtained. Contrast used:100 mL of Isovue 300 with IV Contrast, Oral contrast used: with Oral Contrast Findings: CHEST: LUNGS/ PLEURA: r right upper lobe nodule measuring 6 mm series 3 image 26, right lower lobe pulmonary nodule measuring 11 mm image 44, left lower lobe streaky atelectasis/scarring. Left lower lobe nodul e measuring 5 mm image 42 as examples. These all appear stable in size from 06/02/2023. No focal consol idation, pneumothorax or pleural effusion. AIRWAY: Patent and unremarkable. HEART: Size within normal limits. MEDIASTINUM: No gross evidence of adenopathy. VASCULATURE: No aortic aneurysm. Right chest wall [id number]-Ulds with tip terminating in the superior vena cava/superior cavoatrial junction. MUSCULOSKELETAL: No acute osseous abnormalities. SOFT TISSUES/LYMPH NODES: Unremarkable. LOWER NECK: No significant findings. ABDOMEN: ABDOMEN LIVER: Diffusely hypoattenuating parenchyma. Scattered hypodensities in the left hepatic lobe thought to be similar to prior. GALLBLADDER AND BILE DUCTS: The gallbladder is surgically absent. PANCREAS: Unremarkable. SPLEEN: Unremarkable. ADRENAL GLANDS: Stable right adrenal gland nodule measuring 11 mm. KIDNEYS AND URETERS: No evidence of hydronephrosis or renal calculus. The ureters are unremarkable. PELVIS BLADDER: Unremarkable REPRODUCTIVE: Unremarkable. ABDOMEN & PELVIS STOMACH AND BOWEL: No evidence of bowel obstruction. Post surgical changes of the ascending colon PERITONEUM: No evidence of pneumoperitoneum or free fluid. Mesenteric lymph nodes are visualized in t he upper abdomen the largest measuring 9 mm in short axis pain VASCULATURE: No evidence of aortic aneurysm. MUSCULOSKELETAL: No acute osseous abnormalities LYMPH NODES: No gross evidence for lymphadenopathy. SOFT TISSUE/ABDOMINAL WALL: Umbilical hernia containing half loop of small bowel. Soft tissue promine nce of the upper abdomen near midline series 3 image 54 measuring 7 mm possibly related to skin infec tion IMPRESSION: 1. Multiple upper abdominal mesenteric lymph nodes are not significantly changed in morphology sridhar red to prior 06/02/2023. Continued surveillance recommended 2. Scattered pulmonary nodules which are felt to be similar given differences in slice selection to prior on 06/02/2023. Continued surveillance recommended. 3. No lymphadenopathy identified. 4. Scattered hypodensities within the liver. On the left hepatic lobe appears similar to prior. 5. Hepatic steatosis. 6. Umbilical Woodruff hernia.
== END | disposition home or self-care (01) ==
LOC: RADCTMAIN 10:08
PROVIDERS: ATTEND Internal Medicine Hematology & Oncology
DX: C18.2 Malignant neoplasm of ascending colon (principal); K42.9 Umbilical hernia without obstruction or gangrene; K76.0 Fatty (change of) liver, not elsewhere classified; I10 Essential (primary) hypertension; R21 Rash and other nonspecific skin eruption; Z71.3 Dietary counseling and surveillance
CPT/HCPCS: 82565; 84520; 71260; 74177; 36415; Q9967

== ENCOUNTER → 2024-01-28 | Outpatient (CLI) | payer MEDICARE, OTHER ==
[2024-01-28 14:04] LABS: African American GFR (CKD) >90 (>60 ml/min/1.73 sqM); Blood Urea Nitrogen 18 mg/dL (9-20); Non-African American GFR(CKD) >90 (>60 ml/min/1.73 sqM)
--- NOTE | 2024-01-28 16:41 | CT ---
EXAMINATION TYPE: CT ChestAbdPelvis w con CT DLP: 2272.6 mGycm, Automated exposure control for dose reduction was used. DATE OF EXAM: 01/28/2024 3:12 PM COMPARISON: CT chest abdomen and pelvis 10/01/2023, 06/02/2023, CT abdomen and pelvis 08/13/2023, 03/11/20 23 CLINICAL INDICATION:Male, 48 years old with history of C18.2 COLON CANCER; [facility], colon ca f/u Technique: Multiple axial images of the chest, abdomen, and pelvis were obtained following the intrav enous administration of 100 mL Isovue-300. Oral contrast was administered. Two-dimensional coronal an d sagittal reconstructions were obtained. Findings: CHEST: LUNGS/ PLEURA: Several new and enlarging pulmonary nodules when compared to prior CT. Exams including a right upper lobe 1.0 cm solid nodule (series 4, image 27), previously 0.8 cm. Right lower lobe med ial 1.2 cm pulmonary nodule (series 4, image 21), previously 0.8 cm. Similar streaky scarring within the posterior aspect of the left upper lobe. No pleural effusion, pneumothorax, or focal consolidatio n. AIRWAY: Patent and unremarkable. HEART: Size within normal limits. Trace anterior pericardial effusion. MEDIASTINUM: No evidence of adenopathy. VASCULATURE: No aortic aneurysm. Right chest wall Xmeqch-r-Myne with tip terminating in the superior cavoatrial junction. MUSCULOSKELETAL: No acute osseous abnormalities. No aggressive osseous lesions. SOFT TISSUES/LYMPH NODES: Unremarkable. LOWER NECK: No significant findings. ABDOMEN: ABDOMEN LIVER: Diffusely hypoattenuating parenchyma. Scattered hypodensities in the left hepatic lobe thought to be similar to prior. GALLBLADDER AND BILE DUCTS: The gallbladder is surgically absent. No biliary ductal dilatation. PANCREAS: Unremarkable. SPLEEN: Unremarkable. ADRENAL GLANDS: Stable right adrenal gland nodule measuring 11 mm. Left adrenal gland is unremarkable . KIDNEYS AND URETERS: No evidence of hydronephrosis or renal calculus. The ureters are unremarkable. PELVIS BLADDER: Unremarkable REPRODUCTIVE: Unremarkable. ABDOMEN & PELVIS STOMACH AND BOWEL: Stomach and duodenum are unremarkable. No evidence of bowel obstruction. Post surg ical changes from right hemicolectomy. No focal bowel wall thickening or surrounding inflammatory bruno nges. PERITONEUM: No evidence of pneumoperitoneum or free fluid. VASCULATURE: No evidence of aortic aneurysm. MUSCULOSKELETAL: No acute osseous abnormalities. No aggressive osseous lesions. Degenerative disc dis ease most pronounced at L5-S1. LYMPH NODES: Few enlarging lymph nodes including a gastrohepatic lymph node measuring 1.9 cm short ax is, previously 1.5 cm (series 3, image 36), a pericaval lymph node measuring 1.7 cm short axis (serie s 3, and 67), previously 1.3 cm short axis. Additional prominent mesenteric lymph nodes are demonstra benita. SOFT TISSUE/ABDOMINAL WALL: Small fat filled umbilical hernia. IMPRESSION: Progression of disease with mild increase in size and number of pulmonary metastatic nodules. Additio slim there is mild increased size of few periportal and pericaval lymph nodes with similar prominenc e of mesenteric lymph nodes. [facility], , 01/28/2024 4:38 PM
== END | disposition home or self-care (01) ==
LOC: RADCTMAIN 13:14
PROVIDERS: ATTEND Internal Medicine Hematology & Oncology
DX: C18.2 Malignant neoplasm of ascending colon (principal); C78.00 Secondary malignant neoplasm of unspecified lung; J98.4 Other disorders of lung; R91.8 Other nonspecific abnormal finding of lung field
CPT/HCPCS: 82565; 84520; 71260; 74177; 36415; Q9967

== ENCOUNTER → 2024-03-31 | Outpatient (CLI) | payer MEDICARE, OTHER ==
[2024-03-31 15:32] LABS: HCT 43.4 % (39.6-50.0); HGB 14.3 g/dL (13.0-17.0); MCH 31.1 pg (27.0-32.0); MCHC 32.9 g/dL (32.0-37.0); MCV 94.3 FL (80.0-97.0); Mean Platelet Volume 10.3 FL (9.5-12.2); NRBC Per 100 WBC 0 X 10*3/uL (0.00-0.01); Platelet Count 292 X 10*3/uL (140-440); RDW 14.6 % (11.5-14.5); WBC 7.83 X 10*3/uL (4.50-10.00)
[2024-03-31 15:41] LABS: NT-Pro-B-Type Natriuretic Pept <36 pg/mL (0-125)
[2024-03-31 16:01] LABS: ALT 27 U/L (10-49); AST 17 U/L (14-35); Albumin/Globulin Ratio 1.29 Ratio (1.60-3.17); Alkaline Phosphatase 93 U/L (41-126); BUN/Creat Ratio 18.38 Ratio (12.00-20.00); Blood Urea Nitrogen 14.7 mg/dL (9.0-27.0); Calcium 9.4 mg/dL (8.7-10.3); Carbon Dioxide 26.9 mmol/L (21.6-31.8); Chloride 105 mmol/L (96-109); Chol/HDL Ratio 3.95 Ratio; Globulin 3.1 g/dL (1.6-3.3); Glucose 107 mg/dL (70-110); LDL Cholesterol,Calculated 114.5 mg/dL (0.0-131.0); Potassium 4.5 mmol/L (3.5-5.5); Sodium 142 mmol/L (135-145); Total Bilirubin 0.8 mg/dL (0.3-1.2); Total Protein 7.1 g/dL (6.2-8.2)
== END | disposition home or self-care (01) ==
LOC: LABWHC1 08:31
PROVIDERS: ATTEND Student in an Organized Health Care Education/Training Program
DX: I50.9 Heart failure, unspecified (principal); E11.9 Type 2 diabetes mellitus without complications; E78.5 Hyperlipidemia, unspecified; E03.9 Hypothyroidism, unspecified; D72.9 Disorder of white blood cells, unspecified; R79.89 Other specified abnormal findings of blood chemistry
CPT/HCPCS: 36415; 80053; 80061; 83036; 83880; 84443; 85027

== ENCOUNTER → 2024-08-14 | Outpatient (CLI) | payer MEDICARE ==
[2024-08-14 11:56] LABS: African American GFR (CKD) >90 (>60 ml/min/1.73 sqM); Blood Urea Nitrogen 11 mg/dL (9-20); Non-African American GFR(CKD) >90 (>60 ml/min/1.73 sqM)
--- NOTE | 2024-08-14 14:11 | CT ---
EXAMINATION TYPE: CT ChestAbdPelvis w con CT DLP: 2234.9 mGycm, Automated exposure control for dose reduction was used. DATE OF EXAM: 08/14/2024 1:26 PM COMPARISON: Multiple CT chest abdomen pelvis with most recent 05/12/2024 CLINICAL INDICATION:Male, 48 years old with history of C18.2 MALIGNANT NEOPLASM OF ASCENDING COLON; P HH, Follow up for malignant neoplasm of colon. Technique: Multiple axial images of the chest, abdomen, and pelvis were obtained following the intrav enous administration of 100 mL Isovue-300. Oral contrast was administered. Two-dimensional coronal an d sagittal reconstructions were obtained. Findings: CHEST: LUNGS/ PLEURA: Innumerable solid pulmonary nodules throughout the lungs redemonstrated. Marginal increase size of so me pulmonary nodules when compared to prior CT. Examples include a peripheral right upper lobe 1.8 ce ntimeter pulmonary nodule, previously measured up to 1.8 cm (series 4, image 28). Medial right lower lobe 1.5 cm pulmonary nodule (series 4, image 43). Previously measured up to 1.5 cm. Right lower lobe 2.1 cm pulmonary nodule, previously measuring up to 1.8 cm (series 4, image 47). Similar streaky sca rring within the posterior aspect of the left upper lobe. No pleural effusion, pneumothorax, or focal consolidation. AIRWAY: Patent and unremarkable. HEART: Size within normal limits. Trace anterior pericardial effusion. No significant coronary arteri al calcifications. MEDIASTINUM: Increased size of right hilar lymph node measuring up to 1.8 cm, previously 1.7 cm. Incr eased size of subcarinal lymph node measuring up to 1.4 cm short axis. Previously measured up to 1.1 cm. VASCULATURE: No aortic aneurysm. Right chest wall Dpltuq-t-Klsc with tip terminating in the superior cavoatrial junction. MUSCULOSKELETAL: No acute osseous abnormalities. No aggressive osseous lesions. Minimal dextro curvat ure of the thoracic spine. SOFT TISSUES/LYMPH NODES: Unremarkable. LOWER NECK: No significant findings. ABDOMEN: ABDOMEN LIVER: Diffusely hypoattenuating parenchyma consistent with steatosis. Scattered hypodensities are th ought to be similar and is favored to represent cysts. GALLBLADDER AND BILE DUCTS: The gallbladder is surgically absent. No biliary ductal dilatation. PANCREAS: Unremarkable. SPLEEN: Unremarkable. ADRENAL GLANDS: Stable size of right adrenal gland nodule measuring 1.3 cm. Left adrenal gland is unr emarkable. KIDNEYS AND URETERS: No evidence of hydronephrosis or renal calculus. The kidneys enhance symmetrical ly. Contrast is demonstrated within both collecting systems on the delayed phase. Stable bilateral wilson bcentimeter renal cysts. No follow-up recommended. PELVIS BLADDER: Unremarkable REPRODUCTIVE: Coarse calcifications of the prostate gland are identified. ABDOMEN & PELVIS STOMACH AND BOWEL: Stomach and duodenum are unremarkable. No evidence of bowel obstruction. Post surg ical changes from right hemicolectomy. Enteric contrast reaches the ascending colon. No focal bowel w all thickening or surrounding inflammatory changes. PERITONEUM/RETROPERITONEUM: No evidence of pneumoperitoneum or free fluid. Development of left retro peritoneal stranding changes. VASCULATURE: No evidence of aortic aneurysm. MUSCULOSKELETAL: No acute osseous abnormalities. No aggressive osseous lesions. Degenerative disc dis ease most pronounced at L5-S1. LYMPH NODES: Marginal increase in size of lymph nodes including a gastrohepatic lymph node measuring 2.2 cm short axis, previously 2.1 cm, a pericaval lymph node measuring 2.0 cm short axis, previously 1.9 cm short axis. Similar size of left para-aortic lymph node measuring up to 3.3 cm, previously 3.4 cm. Additional prominent and enlarged mesenteric lymph nodes are demonstrated. SOFT TISSUE/ABDOMINAL WALL: Small fat filled umbilical hernia. IMPRESSION: Marginal progression of disease with marginal in size of pulmonary metastatic nodules and metastatic mediastinal/retroperitoneal/mesenteric lymph nodes. [facility], , 08/14/2024 2:08 PM
== END | disposition home or self-care (01) ==
LOC: RADCTMAIN 11:18
PROVIDERS: ATTEND Internal Medicine Hematology & Oncology
DX: C18.2 Malignant neoplasm of ascending colon (principal); C78.00 Secondary malignant neoplasm of unspecified lung; R21 Rash and other nonspecific skin eruption; Z71.3 Dietary counseling and surveillance; I10 Essential (primary) hypertension
CPT/HCPCS: 82565; 84520; 71260; 74177; 36415; Q9967